=== PATIENT | male | born 1975 | race Caucasian/White ===

== ENCOUNTER 2017-10-28 09:12 | Observation (INO) ==
--- NOTE | 2017-10-28 10:03 | Emergency Department Note ---
ED Disposition Clinical Impression: Hypertensive urgency, Chest pain, Obesity (BMI 30.0-34.9), Hypokalemia, Non- compliance Disposition: Admitted As Inpatient Condition on Discharge: Fair - Critical Care Critical Care Time: No Attestation: On , the high probability of a clinically significant, sudden or life threatening deterioration of the following system(s) required my full and direct attention, intervention and personal management. The time I documented below is in addition to time spent performing reported procedures but includes the following listed in this critical care notation. Medical Decision Making - Ananda Inquiry Pt receiving controlled substance: No Ananda was queried for this patient: No Vital Signs: 10/28/17 09:15 10/28/17 09:34 10/28/17 09:44 Temperature 98.5 F Temperature Source Oral Pulse Rate [Right Brachial] 106 H 89 104 H Respiratory Rate 20 Blood Pressure [Right Arm] 214/148 201/150 222/142 Blood Pressure Mean [Right Arm] 170 167 168 Blood Pressure Source [Right Arm] Manual Cuff/ Auscultation Manual Cuff/ Auscultation Blood Pressure Position [Right Arm] Sitting Sitting 02 Sat by Pulse Oximetry 96 98 Oxygen Delivery Method 10/28/17 10:31 10/28/17 10:49 10/28/17 11:01 Temperature Temperature Source Pulse Rate [Right Brachial] 100 H 100 H 98 H Respiratory Rate Blood Pressure [Right Arm] 230/142 232/142 214/140 Blood Pressure Mean [Right Arm] 171 172 164 Blood Pressure Source [Right Arm] Manual Cuff/ Auscultation Manual Cuff/ Auscultation Blood Pressure Position [Right Arm] Sitting Sitting 02 Sat by Pulse Oximetry Oxygen Delivery Method 10/28/17 11:08 10/28/17 11:18 10/28/17 11:30 Temperature Temperature Source Oral Pulse Rate [Right Brachial] 100 H 98 H Respiratory Rate Blood Pressure [Right Arm] 202/142 180/140 Blood Pressure Mean [Right Arm] 162 153 Blood Pressure Source [Right Arm] Manual Cuff/ Auscultation Manual Cuff/ Auscultation Blood Pressure Position [Right Arm] Sitting Sitting 02 Sat by Pulse Oximetry Oxygen Delivery Method 10/28/17 11:44 10/28/17 12:05 10/28/17 12:14 Temperature Temperature Source Pulse Rate [Right Brachial] 93 H 88 Respiratory Rate 16 Blood Pressure [Right Arm] 153/114 165/122 184/101 Blood Pressure Mean [Right Arm] 127 136 128 Blood Pressure Source [Right Arm] Automatic Cuff Blood Pressure Position [Right Arm] Sitting Sitting Sitting 02 Sat by Pulse Oximetry Oxygen Delivery Method 10/28/17 12:54 10/28/17 13:34 Temperature 98.2 F Temperature Source Oral Pulse Rate [Right Brachial] 89 89 Respiratory Rate 20 Blood Pressure [Right Arm] 172/122 187/145 Blood Pressure Mean [Right Arm] 138 159 Blood Pressure Source [Right Arm] Manual Cuff/ Auscultation Automatic Cuff Blood Pressure Position [Right Arm] Sitting Supine 02 Sat by Pulse Oximetry 97 Oxygen Delivery Method Room Air - Lab Data Lab Results 10/28/17 05:53: WBC 8.0, RBC 4.54 L, Hgb 12.7 L, Hct 37.9 L, MCV 83.5, MCH 28.1 , MCHC 33.6, RDW 14.5, Plt Count 154, MPV 7.7, Neut % (Auto) 75.6, Lymph % (Auto ) 19.1, [place] % (Auto) 3.7, Eos % (Auto) 1.3, Baso % (Auto) 0.4, Neut # (Auto) 6.1, Lymph # (Auto) 1.5, [place] # (Auto) 0.3, Eos # (Auto) 0.1, Baso # (Auto) 0.0 10/28/17 10:34: D-Dimer < 100 10/28/17 10:34: Total Creatine Kinase 63, CK-MB (CK-2) 1.7, CK-MB (CK-2) Rel Index 2.7, Troponin I 0.04 10/28/17 10:34: Sodium 142, Potassium 2.8 L*, Chloride 112 H, Carbon Dioxide 22 , Anion Gap 10.8, BUN 14, Creatinine 0.75, Estimated Creat Clear 216, Estimated GFR 115, Est GFR ( Amer) 139, Glucose 92, Calcium 5.6 L, Total Bilirubin 0.3, AST 9 L, ALT 25, Alkaline Phosphatase 59, Total Protein 4.9 L, Albumin 2.5 L, Globulin 2.4, Albumin/Globulin Ratio 1.0 L 10/28/17 10:34: B-Natriuretic Peptide 49 Result diagrams: 10/28/17 05:53 08/23/18 10:34 Orders (Tests/Meds): ED MEDICATIONS Generic Name Dose Route Start Last Admin Trade Name Freq PRN Reason Stop Dose Admin Nitroglycerin/Dextrose 250 mls @ 1.5 mls/hr 10/28/17 13:16 Nitroglycerin 50mg/250ml D5w IV 11/27/17 10:44 .Q24H LACIE Protocol 5 MCG/MIN Discontinued Medications Generic Name Dose Route Start Last Admin Trade Name Freq PRN Reason Stop Dose Admin Acetaminophen 1,000 mg 10/28/17 11:36 10/28/17 11:43 Tylenol 500mg Tablet PO 10/28/17 11:37 1,000 mg ONCE ONE Administration Aspirin 243 mg 10/28/17 09:30 10/28/17 09:30 Aspirin 325mg Tablet PO 10/28/17 09:31 243 mg ONCE ONE Administration Sodium Chloride 500 mls @ 999 mls/hr 10/28/17 10:15 10/28/17 10:06 Sod Chlor 0.9% 1000ml Bag IV 10/28/17 10:45 999 mls/hr .Q31M LACIE Administration Nitroglycerin/Dextrose 250 mls @ 1.5 mls/hr 10/28/17 10:45 10/28/17 11:23 Nitroglycerin 50mg/250ml D5w IV 11/27/17 10:44 40 mcg/min .Q24H LACIE 12 mls/hr Titration Protocol 5 MCG/MIN Nitroglycerin 1 gm 10/28/17 09:31 10/28/17 09:30 Nitroglycerin 1 Inch Oint Udp TD 10/28/17 09:32 1 gm ONCE ONE Administration Ondansetron HCl 4 mg 10/28/17 11:11 10/28/17 11:15 Zofran 4mg/2ml Vial IV 10/28/17 11:12 4 mg ONCE ONE Administration Potassium Chloride 40 meq 10/28/17 11:18 10/28/17 11:48 Klor-Con 20meq Tablet PO 10/28/17 11:19 40 meq ONCE ONE Administration - ECG Data Tracing #1 Sinus tachycardia 115 right axis deviation LVH changes with T-wave inversions in the inferior leads and lateral leads. ECG initial impression date: 10/28/17 ECG initial impression time: 09:15 Medical Decision Narrative: The patient was given normal saline 500 cc bolus and started the patient on Nitropaste with no improvement. So I discontinued the paste and started the patient on IV nitro drip. His systolic blood pressure came down to 160 mmHg he became chest pain-free. His first set of enzymes were negative. I discussed his EKG with Dr. Jarquin who agreed to see him in consultation. Called his primary care physician Dr. Cho who agreed to admit the patient. Patient left the department asymptomatic and was hemodynamically and neurologically stable Chest Pain HPI - General Chief Complaint: Chest Pain Stated Complaint: Chest pain Time Seen by Provider: 10/28/17 09:15 Mode of Arrival: Ambulatory Limitations: No Limitations Description of Symptoms (Recalled from ER Triage Doc. by RN): Left sided CP that started this morning. Pt denies radiating but states it feel "tight". Also c/o SOA and light headedness. Pt c/o left sided tingling in hand. - History of Present Illness HPI narrative: 42 years old white male smoker with history of hypertension and noncompliance with medications. Today he woke up at 7:30 in the morning felt lightheaded short of breath mild chest pressure rated 1/10 with no palpitations nausea vomiting or diarrhea. He told his to take him to the ED. upon arrival it was noted that his blood pressure is 240/130 mmHg is unchanged one was done bilatrally. He denies his pain at the time of interview. Have some dental pain last night and took Percocet from his . His was seen 2 days ago for chronic migraine and he was in her company. complaint: chest pain Onset (ago): hour(s) (2 hours prior to arrival.) Duration: now resolved Activity at onset: during rest Pain location: substernal Severity: mild Severity scale (1-10): 1 Quality: tightness Pain radiation: none Relieving factors: nothing Exacerbating factors: nothing Associated symptoms: dyspnea, other (Lightheadedness.) Risk Factors for CAD: Hypertension, Smoking Treatments prior to or on arrival for Cardiac Chest Pain: none - Related Data Home Medications Medication Instructions Recorded Confirmed No Known Home Medications 10/28/17 10/28/17 Allergies Allergy/AdvReac Type Severity Reaction Status Date / Time No Known Allergies Allergy Unverified 10/28/17 13:25 [facility] History I have reviewed the patient's past medical history: Yes - Social History Educational Level: Completed High School Smoking Status: Current every day smoker Alcohol Intake: former Alcohol Intake Frequency:: holidays/special occasions only - Psychiatric History Expresses thoughts of harming self/others: None Suicide Plan Description: No Plan ROS Obtained: Yes All systems reviewed & no additional complaints Physical Exam - General General appearance: alert, in no apparent distress - Head Head exam: atraumatic, normocephalic, normal inspection - Eye Eye exam: Present: normal appearance, PERRL, EOMI. Absent: scleral icterus, jaundice, nystagmus - ENT ENT exam: Present: normal exam, normal oropharynx, mucous membranes moist, TM's normal bilaterally, normal external ear exam - Neck Neck exam: Present: normal inspection, full ROM, trachea midline. Absent: tenderness, meningismus, lymphadenopathy - Chest Chest inspection: Present: normal inspection, symmetric chest wall rise. Absent : tenderness - Respiratory Respiratory exam: Present: normal lung sounds bilaterally. Absent: respiratory distress, wheezes - Cardiovascular Cardiovascular exam: Present: regular rate, normal rhythm, normal heart sounds. Absent: JVD - Abdominal Exam Abdominal exam: Present: soft, normal bowel sounds. Absent: distention, tenderness, guarding, rebound, rigidity - Extremities Exam Extremities exam: Present: normal inspection, full ROM, normal capillary refill. Absent: calf tenderness - Back Exam Back exam: Present: normal inspection. Absent: tenderness, CVA tenderness (R), CVA tenderness (L), paraspinal tenderness, vertebral tenderness - Neurological Exam Neurological exam: Present: alert, oriented X3, CN II-XII intact, motor sensory deficit, reflexes normal - Psychiatric Psychiatric exam: Present: normal affect, normal mood - Skin Skin exam: Present: warm, dry, intact, normal color - Lymphatic Lymphatic Findings: no adenopathy
[2017-10-28 10:54] LABS: Basophils % 0.4 % (0.1-2.0); Eosinophils # 0.1 K/mm3 (0.0-0.4); Eosinophils % 1.3 % (0.1-12.0); Hematocrit 37.9 % (42.0-52.0); Hemoglobin 12.7 g/dL (14.1-18.0); Lymphocytes # 1.5 K/mm3 (0.7-4.5); Lymphocytes % 19.1 K/mm3 (10-50); Mean Corpuscular HGB Conc 33.6 g/dL (31.8-35.4); Mean Corpuscular Hemoglobin 28.1 pg (27.0-31.2); Mean Corpuscular Volume 83.5 fl (80-94); Mean Platelet Volume 7.7 fl (7.4-10.4); Monocytes # 0.3 K/mm3 (0.1-1.0); Monocytes % 3.7 % (1.7-9.3); Neutrophils # 6.1 K/mm3 (1.8-7.8); Neutrophils % 75.6 % (37.0-80.0); Platelet Count 154 K/mm3 (142-424); Red Blood Count 4.54 M/mm3 (4.60-6.20); Red Cell Distribution Width 14.5 % (11.5-17.5)
[2017-10-28 11:15] LABS: Albumin Level 2.5 gm/dL (3.4-5.0); Anion Gap 10.8 mEq/L (5-15); Bilirubin,Total 0.3 mg/dL (0.2-1.0); Globulin 2.4 gm/dl (1.3-3.2); Total Protein,Serum 4.9 gm/dL (6.4-8.2)
[2017-10-28 11:18] LABS: Calcium 5.6 mg/dL (8.5-10.1); Potassium 2.8 mmoL/L (3.5-5.1)
--- NOTE | 2017-10-28 13:48 | History & Physical Report ---
*Admission Date: 10/28/17 <Julieta Rogers 10/28/17 13:51> *Chief complaint: SOA, lightheaded, chest pressure <Julieta Rogers 10/28/17 13:51> *History of present illness: Mr Singer is a 42 year old white male smoker with a history of hypertension and noncompliance with medications. Today he woke up at 7:30 in the morning and felt lightheaded and short of breath with mild chest pressure rated 1/10 with no palpitations, nausea, vomiting, or diarrhea. He was brought to the ER for evaluation and upon arrival it was noted that his blood pressure was 240/130 mmHg. He was placed on a nitro drip and admitted for further evaluation and treatment. <Julieta Rogers 10/28/17 13:51> [facility] History Medical History: Reports:: Hypertension, Kidney Stones <Julieta Rogers 13:51> Comment: Kidney stones <Julieta Rogers 10/28/17 13:51> - *Social History Educational Level: Completed High School <Julieta Rogers 10/28/17 13:51> Smoking Status: Current every day smoker <Julieta Rogers 10/28/17 13:51> Alcohol Intake: former <Julieta Rogers 10/28/17 13:51> Alcohol Intake Frequency:: holidays/special occasions only <Julieta Rogers 13:51> - Psychiatric History Expresses thoughts of harming self/others: None <Julieta Rogers 10/28/17 13: 51> Suicide Plan Description: No Plan <Julieta Rogers 10/28/17 13:51> Review of Systems - Constitutional Reports weakness, Denies body ache(s), Denies chills <Julieta Rogers 13:51> - Eyes Denies blurry vision, Denies double vision <Julieta Rogers 10/28/17 13:51> - ENT Denies nasal congestion, Denies sore throat <Julieta Rogers 10/28/17 13:51> - *Cardiovascular Reports chest pain, Reports lightheadedness, Denies radiating jaw, neck or arm pain <Julieta Rogers 10/28/17 13:51> - *Respiratory Reports shortness of breath, Denies cough <Julieta Rogers 10/28/17 13:51> - *Gastrointestinal Reports nausea, Denies abdominal pain, Denies loose stools, Denies vomiting < Julieta Rogers 10/28/17 13:51> - *Genitourinary Denies difficulty urinating, Denies painful urination <BillyreneaJulieta 13:51> - *Musculoskeletal Denies joint pain <BillyreneaJulieta 10/28/17 13:51> - *Neurologic Reports headache(s), Reports dizziness, Reports weakness <BillyreneaJulieta 13:51> Meds Home Medications Medication Instructions Recorded Confirmed Type No Known Home Medications 10/28/17 10/28/17 History <TammieErick Walter - 10/28/17 18:03> Allergies Allergy/AdvReac Type Severity Reaction Status Date / Time No Known Allergies Allergy Unverified 10/28/17 13:25 <Erick Cho - 10/28/17 18:03> Exam Vital signs and Labs for Last 24 Hours: Temp Pulse Resp BP Pulse Ox 98.2 F 89 16 187/145 97 10/28/17 13:50 10/28/17 13:50 10/28/17 13:50 10/28/17 13:50 10/28/17 13:34 Laboratory Results - last 24 hr 10/28/17 05:53: WBC 8.0, RBC 4.54 L, Hgb 12.7 L, Hct 37.9 L, MCV 83.5, MCH 28.1 , MCHC 33.6, RDW 14.5, Plt Count 154, MPV 7.7, Neut % (Auto) 75.6, Lymph % (Auto ) 19.1, [place] % (Auto) 3.7, Eos % (Auto) 1.3, Baso % (Auto) 0.4, Neut # (Auto) 6.1, Lymph # (Auto) 1.5, [place] # (Auto) 0.3, Eos # (Auto) 0.1, Baso # (Auto) 0.0 10/28/17 10:34: D-Dimer < 100 10/28/17 10:34: Total Creatine Kinase 63, CK-MB (CK-2) 1.7, CK-MB (CK-2) Rel Index 2.7, Troponin I 0.04 10/28/17 10:34: Sodium 142, Potassium 2.8 L*, Chloride 112 H, Carbon Dioxide 22 , Anion Gap 10.8, BUN 14, Creatinine 0.75, Estimated Creat Clear 216, Estimated GFR 115, Est GFR ( Amer) 139, Glucose 92, Calcium 5.6 L, Total Bilirubin 0.3, AST 9 L, ALT 25, Alkaline Phosphatase 59, Total Protein 4.9 L, Albumin 2.5 L, Globulin 2.4, Albumin/Globulin Ratio 1.0 L 10/28/17 10:34: B-Natriuretic Peptide 49 10/28/17 13:30: Troponin I 0.04 10/28/17 16:35: Troponin I 0.03 <Erick Cho - 10/28/17 18:03> Temp Pulse Resp BP Pulse Ox 98.2 F 89 20 187/145 97 10/28/17 13:34 10/28/17 13:34 10/28/17 13:34 10/28/17 13:34 10/28/17 13:34 Laboratory Results - last 24 hr 10/28/17 05:53: WBC 8.0, RBC 4.54 L, Hgb 12.7 L, Hct 37.9 L, MCV 83.5, MCH 28.1 , MCHC 33.6, RDW 14.5, Plt Count 154, MPV 7.7, Neut % (Auto) 75.6, Lymph % (Auto ) 19.1, [place] % (Auto) 3.7, Eos % (Auto) 1.3, Baso % (Auto) 0.4, Neut # (Auto) 6.1, Lymph # (Auto) 1.5, [place] # (Auto) 0.3, Eos # (Auto) 0.1, Baso # (Auto) 0.0 10/28/17 10:34: D-Dimer < 100 10/28/17 10:34: Total Creatine Kinase 63, CK-MB (CK-2) 1.7, CK-MB (CK-2) Rel Index 2.7, Troponin I 0.04 10/28/17 10:34: Sodium 142, Potassium 2.8 L*, Chloride 112 H, Carbon Dioxide 22 , Anion Gap 10.8, BUN 14, Creatinine 0.75, Estimated Creat Clear 216, Estimated GFR 115, Est GFR ( Amer) 139, Glucose 92, Calcium 5.6 L, Total Bilirubin 0.3, AST 9 L, ALT 25, Alkaline Phosphatase 59, Total Protein 4.9 L, Albumin 2.5 L, Globulin 2.4, Albumin/Globulin Ratio 1.0 L 10/28/17 10:34: B-Natriuretic Peptide 49 <Julieta Rogers 10/28/17 13:51> I & O for Last 24 hours: Intake & Output 10/26/17 10/27/17 10/28/17 10/29/17 11:59 11:59 11:59 11:59 Intake Total 3.875 / 3.875 507.00 / 507.00 Balance 3.875 / 3.875 507.00 / 507.00 Weight 260 lb 267 lb 3 oz <Erick Cho - 10/28/17 18:03> Intake & Output 10/26/17 10/27/17 10/28/17 10/29/17 11:59 11:59 11:59 11:59 Intake Total 3.875 / 3.875 Balance 3.875 / 3.875 Weight 260 lb 267 lb 3 oz <Julieta Rogers 10/28/17 13:51> - Constitutional no acute distress <Julieta Rogers 10/28/17 13:51> - *Routine HEENT Exam Head: Present: normocephalic, atraumatic <KenJulieta 10/28/17 13:51> Eye: Present: EOMI, PERRL <KenJulieta 10/28/17 13:51> ENT: Present: mucous membranes moist <KenJulieta 10/28/17 13:51> - *Routine Neck Exam Present: supple, full ROM. Absent: carotid bruit <KenJulieta 10/28/17 13 :51> - *Routine Respiratory Exam Present: CTA bilaterally <KenJulieta 10/28/17 13:51> - *Routine Cardiovascular Exam Present: RRR <KenJulieta 10/28/17 13:51> - *Routine Abdominal Exam Present: soft, normoactive bowel sounds. Absent: tenderness <Julieta Rogers 10/28/17 13:51> - *Routine Extremities Exam Absent: edema <Julieta Rogers 10/28/17 13:51> - *Routine Skin Exam Present: intact <Julieta Rogers 10/28/17 13:51> - *Routine Neurological Exam Present: alert, oriented X3 <Julieta Rogers 10/28/17 13:51> H&P: Result - Impressions CXR - mild cardiomegaly <Julieta Rogers 10/28/17 13:51> Assessment and Plan (1) Hypertensive urgency Current visit: Yes Status: Acute Category: Medical Code(s): I16.0 - Hypertensive urgency (2) Chest pain Current visit: Yes Status: Acute Category: Medical Code(s): R07.9 - Chest pain, unspecified (3) Hypocalcemia Current visit: Yes Status: Acute Category: Medical Code(s): E83.51 - Hypocalcemia (4) Hypokalemia Current visit: Yes Status: Acute Category: Medical Code(s): E87.6 - Hypokalemia (5) Obesity (BMI 30.0-34.9) Current visit: Yes Status: Chronic Category: Medical Code(s): E66.9 - Obesity, unspecified <Julieta Rogers 10/28/17 13:44> (1) Hypertensive urgency Current visit: Yes Status: Acute Category: Medical Code(s): I16.0 - Hypertensive urgency (2) Chest pain Current visit: Yes Status: Acute Category: Medical Code(s): R07.9 - Chest pain, unspecified (3) Hypocalcemia Current visit: Yes Status: Acute Category: Medical Code(s): E83.51 - Hypocalcemia (4) Hypokalemia Current visit: Yes Status: Acute Category: Medical Code(s): E87.6 - Hypokalemia (5) Morbid obesity with BMI of 40.0-44.9, adult Current visit: Yes Status: Acute Category: Medical Code(s): E66.01 - Morbid (severe) obesity due to excess calories; Z68.41 - Body mass index (BMI) 40.0-44.9, adult (6) Risk factors for obstructive sleep apnea Current visit: Yes Status: Acute Category: Medical Code(s): Z91.89 - Other specified personal risk factors, not elsewhere classified <Erick Cho - 10/28/17 18:03> - Assessment and plan all Dx Assessment and Plan for all problems:: Patient seen and examined. CC is headache from NTG drip. Cardiology consult noted. reports hx of heavy snoring and apnea. Will need sleep study as outpt. Will check ionized calcium and PTH. <Erick Cho - 10/28/17 18:03> Pt is currently on a nitro drip. Will start on potassium and calcium supplementation. Cardiology to see the patient. <Julieta Rogers - 10/28/17 13:51>
--- NOTE | 2017-10-28 16:48 | Consult Report ---
History of Present Illness Consult date: 10/28/17 Requesting physician: Erick Cho Consult reason: chest pain Chief complaint: HTN urgency, chest pain Additional Medical History:: 1. Hypertension, diagnosed approximately 15 years ago. A. Noncompliant with medical therapy 2. History of snoring and fatigue with suspected obstructive sleep apnea due to 's witnessing apneic periods during sleep 3. Morbid obesity 4. Tobacco use History of present illness: Mr Singer is a 42 year old white male smoker with a history of hypertension and noncompliance with medications. Today he woke up at 7:30 in the morning and felt lightheaded and short of breath with mild chest pressure rated 1/10 with no palpitations, nausea, vomiting, or diarrhea. He was brought to the ER for evaluation and upon arrival it was noted that his blood pressure was 240/ 130 mmHg. He was placed on a nitro drip and admitted for further evaluation and treatment. The above per Julieta Rogers PA-C for Dr. Cho. Patient has a long-standing history of hypertension and medication compliance. He states he has taken his 's metoprolol in the past and felt improvement in his discomfort and headache symptoms with improvement in his blood pressure. He has also tried bisoprolol in the past which brought about fatigue which is the reason he stopped taking it. Cardiology consulted for further evaluation and recommendations. [facility] History Medical History: Reports:: Hypertension, Kidney Stones - *Social History Educational Level: Completed High School Smoking Status: Current every day smoker Alcohol Intake: former Alcohol Intake Frequency:: holidays/special occasions only - Psychiatric History Expresses thoughts of harming self/others: None Suicide Plan Description: No Plan Meds Home Medications Medication Instructions Recorded Confirmed Type No Known Home Medications 10/28/17 10/28/17 History Allergies Allergy/AdvReac Type Severity Reaction Status Date / Time No Known Allergies Allergy Unverified 10/28/17 13:25 Review of Systems - *Cardiovascular Reports chest pain, Reports shortness of breath with activity - *Respiratory Reports shortness of breath with activity - *Gastrointestinal Denies abdominal pain - *Genitourinary Denies difficulty urinating - *Musculoskeletal Denies joint pain - *Neurologic Reports headache(s), Reports dizziness, Reports weakness Exam Vital signs and Labs for Last 24 Hours: Temp Pulse Resp BP Pulse Ox 98.2 F 89 16 187/145 97 10/28/17 13:50 10/28/17 13:50 10/28/17 13:50 10/28/17 13:50 10/28/17 13:34 Laboratory Results - last 24 hr 10/28/17 05:53: WBC 8.0, RBC 4.54 L, Hgb 12.7 L, Hct 37.9 L, MCV 83.5, MCH 28.1 , MCHC 33.6, RDW 14.5, Plt Count 154, MPV 7.7, Neut % (Auto) 75.6, Lymph % (Auto ) 19.1, [place] % (Auto) 3.7, Eos % (Auto) 1.3, Baso % (Auto) 0.4, Neut # (Auto) 6.1, Lymph # (Auto) 1.5, [place] # (Auto) 0.3, Eos # (Auto) 0.1, Baso # (Auto) 0.0 10/28/17 10:34: D-Dimer < 100 10/28/17 10:34: Total Creatine Kinase 63, CK-MB (CK-2) 1.7, CK-MB (CK-2) Rel Index 2.7, Troponin I 0.04 10/28/17 10:34: Sodium 142, Potassium 2.8 L*, Chloride 112 H, Carbon Dioxide 22 , Anion Gap 10.8, BUN 14, Creatinine 0.75, Estimated Creat Clear 216, Estimated GFR 115, Est GFR ( Amer) 139, Glucose 92, Calcium 5.6 L, Total Bilirubin 0.3, AST 9 L, ALT 25, Alkaline Phosphatase 59, Total Protein 4.9 L, Albumin 2.5 L, Globulin 2.4, Albumin/Globulin Ratio 1.0 L 10/28/17 10:34: B-Natriuretic Peptide 49 10/28/17 13:30: Troponin I 0.04 I & O for Last 24 hours: Intake & Output 10/26/17 10/27/17 10/28/17 10/29/17 11:59 11:59 11:59 11:59 Intake Total 3.875 / 3.875 27.00 / 27.00 Balance 3.875 / 3.875 27.00 / 27.00 Weight 260 lb 267 lb 3 oz - *Routine Neck Exam Absent: JVD, carotid bruit - *Routine Respiratory Exam Present: CTA bilaterally - *Routine Cardiovascular Exam Present: RRR. Absent: murmur, gallop, rubs - *Routine Abdominal Exam Present: soft. Absent: tenderness - *Routine Extremities Exam Present: edema - *Routine Neurological Exam Present: alert, oriented X3, moving all extremities Assessment and Plan (1) Hypertensive urgency Current visit: Yes Status: Acute Category: Medical Code(s): I16.0 - Hypertensive urgency (2) Chest pain Current visit: Yes Status: Acute Category: Medical Code(s): R07.9 - Chest pain, unspecified (3) Hypocalcemia Current visit: Yes Status: Acute Category: Medical Code(s): E83.51 - Hypocalcemia (4) Hypokalemia Current visit: Yes Status: Acute Category: Medical Code(s): E87.6 - Hypokalemia (5) Morbid obesity with BMI of 40.0-44.9, adult Current visit: Yes Status: Acute Category: Medical Code(s): E66.01 - Morbid (severe) obesity due to excess calories; Z68.41 - Body mass index (BMI) 40.0-44.9, adult - Assessment and plan all Dx Assessment and Plan for all problems:: 1. Patient has been given 5 of Lopressor IV along with 50 mg of metoprolol p.o. to start twice daily. We will also add losartan 50/12.5 mg daily. Will wean patient off nitroglycerin drip 2. Will obtain an echocardiogram. 3. Patient will need outpatient assessment for obstructive sleep apnea. 4. Tobacco cessation recommended. 5. Further recommendations to follow pending above results.
[2017-10-29 06:55] LABS: Basophils # 0.1 K/mm3 (0-0.2); Basophils % 0.4 % (0.1-2.0); Eosinophils # 0.3 K/mm3 (0.0-0.4); Hematocrit 47.6 % (42.0-52.0); Lymphocytes # 3.2 K/mm3 (0.7-4.5); Lymphocytes % 23.6 K/mm3 (10-50); Mean Corpuscular HGB Conc 32.7 g/dL (31.8-35.4); Mean Corpuscular Hemoglobin 27.8 pg (27.0-31.2); Mean Corpuscular Volume 84.9 fl (80-94); Mean Platelet Volume 7.6 fl (7.4-10.4); Monocytes # 0.8 K/mm3 (0.1-1.0); Monocytes % 5.8 % (1.7-9.3); Neutrophils # 9.2 K/mm3 (1.8-7.8); Neutrophils % 68.2 % (37.0-80.0); Platelet Count 230 K/mm3 (142-424); Red Cell Distribution Width 14.7 % (11.5-17.5); White Blood Count 13.5 K/mm3 (4.8-10.8)
[2017-10-29 07:00] LABS: Albumin Level 3.6 gm/dL (3.4-5.0); Albumin/Globulin Ratio 1.1 (1.1-1.8); Anion Gap 11.4 mEq/L (5-15); Bilirubin,Total 0.4 mg/dL (0.2-1.0); Globulin 3.3 gm/dl (1.3-3.2); Potassium 4.4 mmoL/L (3.5-5.1); Total Protein,Serum 6.9 gm/dL (6.4-8.2)
[2017-10-29 07:08] LABS: Calcium 8.6 mg/dL (8.5-10.1)
[2017-10-29 07:49] LABS: Hemoglobin 15.6 g/dL (14.1-18.0)
--- NOTE | 2017-10-29 08:09 | Progress Note ---
<Julieta Rogers - Last Filed: 10/29/17 08:05> Internal Medicine - PN: Subj *Date: 10/29/17 *Time: 08:05 Interval history: Mr. Singer is feeling much better this morning. He is asymptomatic at this point. His blood pressure has improved and he has been weaned off the nitro drip. He wants to go home. Exam Vital signs and Labs for Last 24 Hours: Temp Pulse Resp BP Pulse Ox 98.0 F 67 17 153/90 94 L 10/28/17 20:00 10/29/17 06:00 10/28/17 20:00 10/29/17 06:00 10/29/17 06:00 Laboratory Results - last 24 hr 10/28/17 05:53: WBC 8.0, RBC 4.54 L, Hgb 12.7 L, Hct 37.9 L, MCV 83.5, MCH 28.1 , MCHC 33.6, RDW 14.5, Plt Count 154, MPV 7.7, Neut % (Auto) 75.6, Lymph % (Auto ) 19.1, [place] % (Auto) 3.7, Eos % (Auto) 1.3, Baso % (Auto) 0.4, Neut # (Auto) 6.1, Lymph # (Auto) 1.5, [place] # (Auto) 0.3, Eos # (Auto) 0.1, Baso # (Auto) 0.0 10/28/17 10:34: D-Dimer < 100 10/28/17 10:34: Total Creatine Kinase 63, CK-MB (CK-2) 1.7, CK-MB (CK-2) Rel Index 2.7, Troponin I 0.04 10/28/17 10:34: Sodium 142, Potassium 2.8 L*, Chloride 112 H, Carbon Dioxide 22 , Anion Gap 10.8, BUN 14, Creatinine 0.75, Estimated Creat Clear 216, Estimated GFR 115, Est GFR ( Amer) 139, Glucose 92, Calcium 5.6 L, Total Bilirubin 0.3, AST 9 L, ALT 25, Alkaline Phosphatase 59, Total Protein 4.9 L, Albumin 2.5 L, Globulin 2.4, Albumin/Globulin Ratio 1.0 L 10/28/17 10:34: B-Natriuretic Peptide 49 10/28/17 13:30: Troponin I 0.04 10/28/17 16:35: Troponin I 0.03 10/29/17 05:15: WBC 13.5 H D, RBC 5.60, Hgb 15.6 D, Hct 47.6, MCV 84.9, MCH 27.8, MCHC 32.7, RDW 14.7, Plt Count 230 D, MPV 7.6, Neut % (Auto) 68.2, Lymph % (Auto) 23.6, [place] % (Auto) 5.8, Eos % (Auto) 2.0, Baso % (Auto) 0.4, Neut # ( Auto) 9.2 H, Lymph # (Auto) 3.2, [place] # (Auto) 0.8, Eos # (Auto) 0.3, Baso # ( Auto) 0.1 10/29/17 05:15: Sodium 138, Potassium 4.4 D, Chloride 101, Carbon Dioxide 30 D , Anion Gap 11.4, BUN 19 H D, Creatinine 1.29 D, Estimated Creat Clear 129, Estimated GFR 61, Est GFR ( Amer) 74 D, Glucose 110 H, Calcium 8.6 D, Total Bilirubin 0.4, AST 10 L, ALT 32 D, Alkaline Phosphatase 75, Total Protein 6.9 D, Albumin 3.6 D, Globulin 3.3 H, Albumin/Globulin Ratio 1.1 I & O for Last 24 hours: Intake & Output 10/26/17 10/27/17 10/28/17 10/29/17 11:59 11:59 11:59 11:59 Intake Total 3.875 / 3.875 566.50 / 566.50 Balance 3.875 / 3.875 566.50 / 566.50 Weight 260 lb 267 lb 3 oz - Constitutional no acute distress - *Routine Respiratory Exam Present: CTA bilaterally - *Routine Cardiovascular Exam Present: RRR - *Routine Abdominal Exam Present: soft, normoactive bowel sounds. Absent: tenderness - *Routine Extremities Exam Absent: edema Assessment and Plan (1) Hypertensive urgency Current visit: Yes Status: Acute Category: Medical Code(s): I16.0 - Hypertensive urgency (2) Chest pain Current visit: Yes Status: Acute Category: Medical Code(s): R07.9 - Chest pain, unspecified (3) Hypocalcemia Current visit: Yes Status: Acute Category: Medical Code(s): E83.51 - Hypocalcemia (4) Hypokalemia Current visit: Yes Status: Acute Category: Medical Code(s): E87.6 - Hypokalemia (5) Morbid obesity with BMI of 40.0-44.9, adult Current visit: Yes Status: Acute Category: Medical Code(s): E66.01 - Morbid (severe) obesity due to excess calories; Z68.41 - Body mass index (BMI) 40.0-44.9, adult (6) Risk factors for obstructive sleep apnea Current visit: Yes Status: Acute Category: Medical Code(s): Z91.89 - Other specified personal risk factors, not elsewhere classified - Assessment and plan all Dx Assessment and Plan for all problems:: Potassium has normalized as has his calcium. His BP has improved and he is off the nitro drip. Awaiting cardiology recommendations for disposition. <Erick Cho - Last Filed: 10/29/17 08:31> Internal Medicine - PN: Subj *Date: 10/29/17 *Time: 08:29 Exam Vital signs and Labs for Last 24 Hours: Temp Pulse Resp BP Pulse Ox 98.0 F 67 17 153/90 94 L 10/28/17 20:00 10/29/17 06:00 10/28/17 20:00 10/29/17 06:00 10/29/17 06:00 Laboratory Results - last 24 hr 10/28/17 05:53: WBC 8.0, RBC 4.54 L, Hgb 12.7 L, Hct 37.9 L, MCV 83.5, MCH 28.1 , MCHC 33.6, RDW 14.5, Plt Count 154, MPV 7.7, Neut % (Auto) 75.6, Lymph % (Auto ) 19.1, [place] % (Auto) 3.7, Eos % (Auto) 1.3, Baso % (Auto) 0.4, Neut # (Auto) 6.1, Lymph # (Auto) 1.5, [place] # (Auto) 0.3, Eos # (Auto) 0.1, Baso # (Auto) 0.0 10/28/17 10:34: D-Dimer < 100 10/28/17 10:34: Total Creatine Kinase 63, CK-MB (CK-2) 1.7, CK-MB (CK-2) Rel Index 2.7, Troponin I 0.04 10/28/17 10:34: Sodium 142, Potassium 2.8 L*, Chloride 112 H, Carbon Dioxide 22 , Anion Gap 10.8, BUN 14, Creatinine 0.75, Estimated Creat Clear 216, Estimated GFR 115, Est GFR ( Amer) 139, Glucose 92, Calcium 5.6 L, Total Bilirubin 0.3, AST 9 L, ALT 25, Alkaline Phosphatase 59, Total Protein 4.9 L, Albumin 2.5 L, Globulin 2.4, Albumin/Globulin Ratio 1.0 L 10/28/17 10:34: B-Natriuretic Peptide 49 10/28/17 13:30: Troponin I 0.04 10/28/17 16:35: Troponin I 0.03 10/29/17 05:15: WBC 13.5 H D, RBC 5.60, Hgb 15.6 D, Hct 47.6, MCV 84.9, MCH 27.8, MCHC 32.7, RDW 14.7, Plt Count 230 D, MPV 7.6, Neut % (Auto) 68.2, Lymph % (Auto) 23.6, [place] % (Auto) 5.8, Eos % (Auto) 2.0, Baso % (Auto) 0.4, Neut # ( Auto) 9.2 H, Lymph # (Auto) 3.2, [place] # (Auto) 0.8, Eos # (Auto) 0.3, Baso # ( Auto) 0.1 10/29/17 05:15: Sodium 138, Potassium 4.4 D, Chloride 101, Carbon Dioxide 30 D , Anion Gap 11.4, BUN 19 H D, Creatinine 1.29 D, Estimated Creat Clear 129, Estimated GFR 61, Est GFR ( Amer) 74 D, Glucose 110 H, Calcium 8.6 D, Total Bilirubin 0.4, AST 10 L, ALT 32 D, Alkaline Phosphatase 75, Total Protein 6.9 D, Albumin 3.6 D, Globulin 3.3 H, Albumin/Globulin Ratio 1.1 I & O for Last 24 hours: Intake & Output 10/26/17 10/27/17 10/28/17 10/29/17 11:59 11:59 11:59 11:59 Intake Total 3.875 / 3.875 1106.50 / 1106.50 Balance 3.875 / 3.875 1106.50 / 1106.50 Weight 260 lb 267 lb 3 oz Assessment and Plan (1) Hypertensive urgency Current visit: Yes Status: Acute Category: Medical Code(s): I16.0 - Hypertensive urgency (2) Chest pain Current visit: Yes Status: Acute Category: Medical Code(s): R07.9 - Chest pain, unspecified (3) Hypocalcemia Current visit: Yes Status: Acute Category: Medical Code(s): E83.51 - Hypocalcemia (4) Hypokalemia Current visit: Yes Status: Acute Category: Medical Code(s): E87.6 - Hypokalemia (5) Morbid obesity with BMI of 40.0-44.9, adult Current visit: Yes Status: Acute Category: Medical Code(s): E66.01 - Morbid (severe) obesity due to excess calories; Z68.41 - Body mass index (BMI) 40.0-44.9, adult (6) Risk factors for obstructive sleep apnea Current visit: Yes Status: Acute Category: Medical Code(s): Z91.89 - Other specified personal risk factors, not elsewhere classified - Assessment and plan all Dx Assessment and Plan for all problems:: Patient seen and examined. Subjectively feels much better. Labs improved. Had Echo this morning. Plan discharge when OK with cardiology.
--- NOTE | 2017-10-29 08:47 | Pharmacy Consult Notes ---
[facility] Pharm[facility] VTE Monitoring - Patient Demographics Admission date: 10/28/17 Report Date: 10/29/17 Time: 08:46 Allergies/Adverse Reactions: Patient Allergies No Known Allergies Allergy (Unverified 10/28/17 13:25) Height: 1.73 m Weight: 121.194 kg Patient Problems: Current Active Problems Hypertensive urgency (Acute) Chest pain (Acute) Obesity (BMI 30.0-34.9) (Chronic) Hypocalcemia (Acute) Hypokalemia (Acute) Hypokalemia (Acute) Non-compliance (Acute) Morbid obesity with BMI of 40.0-44.9, adult (Acute) Risk factors for obstructive sleep apnea (Acute) - VTE Risk Labs: VTE Related Lab Results Hgb 15.6 g/dL (14.1-18.0) D 10/29/17 05:15 Hct 47.6 % (42.0-52.0) 10/29/17 05:15 Plt Count 230 K/mm3 (142-424) D 10/29/17 05:15 BUN 19 mg/dL (7-18) H D 10/29/17 05:15 Creatinine 1.29 mg/dL (0.70-1.30) D 10/29/17 05:15 Estimated Creat Clear 129 mL/min (0-300) 10/29/17 05:15 Was VTE Risk Assessment Performed: Yes VTE Score: 2 VTE Risk Level: Low Risk Clinical Trial Participant: No - Prophylaxis VTE Prophylaxis Ordered?: Yes Types of VTE Prophylaxis: TEDS Knee High
--- NOTE | 2017-10-29 08:58 | Progress Note ---
Subjective Date: 10/29/17 Time: 08:55 Principal diagnosis: HTN Interval history: 42-year-old white male in the chair in no acute distress. Feels much better than when he came in. He is asking about going home today. Exam Vital signs and Labs for Last 24 Hours: Temp Pulse Resp BP Pulse Ox 98.0 F 67 17 153/90 94 L 10/28/17 20:00 10/29/17 06:00 10/28/17 20:00 10/29/17 06:00 10/29/17 06:00 Laboratory Results - last 24 hr 10/28/17 05:53: WBC 8.0, RBC 4.54 L, Hgb 12.7 L, Hct 37.9 L, MCV 83.5, MCH 28.1 , MCHC 33.6, RDW 14.5, Plt Count 154, MPV 7.7, Neut % (Auto) 75.6, Lymph % (Auto ) 19.1, [place] % (Auto) 3.7, Eos % (Auto) 1.3, Baso % (Auto) 0.4, Neut # (Auto) 6.1, Lymph # (Auto) 1.5, [place] # (Auto) 0.3, Eos # (Auto) 0.1, Baso # (Auto) 0.0 10/28/17 10:34: D-Dimer < 100 10/28/17 10:34: Total Creatine Kinase 63, CK-MB (CK-2) 1.7, CK-MB (CK-2) Rel Index 2.7, Troponin I 0.04 10/28/17 10:34: Sodium 142, Potassium 2.8 L*, Chloride 112 H, Carbon Dioxide 22 , Anion Gap 10.8, BUN 14, Creatinine 0.75, Estimated Creat Clear 216, Estimated GFR 115, Est GFR ( Amer) 139, Glucose 92, Calcium 5.6 L, Total Bilirubin 0.3, AST 9 L, ALT 25, Alkaline Phosphatase 59, Total Protein 4.9 L, Albumin 2.5 L, Globulin 2.4, Albumin/Globulin Ratio 1.0 L 10/28/17 10:34: B-Natriuretic Peptide 49 10/28/17 13:30: Troponin I 0.04 10/28/17 16:35: Troponin I 0.03 10/29/17 05:15: WBC 13.5 H D, RBC 5.60, Hgb 15.6 D, Hct 47.6, MCV 84.9, MCH 27.8, MCHC 32.7, RDW 14.7, Plt Count 230 D, MPV 7.6, Neut % (Auto) 68.2, Lymph % (Auto) 23.6, [place] % (Auto) 5.8, Eos % (Auto) 2.0, Baso % (Auto) 0.4, Neut # ( Auto) 9.2 H, Lymph # (Auto) 3.2, [place] # (Auto) 0.8, Eos # (Auto) 0.3, Baso # ( Auto) 0.1 10/29/17 05:15: Sodium 138, Potassium 4.4 D, Chloride 101, Carbon Dioxide 30 D , Anion Gap 11.4, BUN 19 H D, Creatinine 1.29 D, Estimated Creat Clear 129, Estimated GFR 61, Est GFR ( Amer) 74 D, Glucose 110 H, Calcium 8.6 D, Total Bilirubin 0.4, AST 10 L, ALT 32 D, Alkaline Phosphatase 75, Total Protein 6.9 D, Albumin 3.6 D, Globulin 3.3 H, Albumin/Globulin Ratio 1.1 I & O for Last 24 hours: Intake & Output 10/26/17 10/27/17 10/28/17 10/29/17 11:59 11:59 11:59 11:59 Intake Total 3.875 / 3.875 1106.50 / 1106.50 Balance 3.875 / 3.875 1106.50 / 1106.50 Weight 260 lb 267 lb 3 oz - *Routine Respiratory Exam Present: CTA bilaterally - *Routine Cardiovascular Exam Present: RRR Progress Note: A&P (1) Hypertensive urgency Status: Acute Current Visit: Yes (2) Chest pain Status: Acute Current Visit: Yes (3) Hypocalcemia Status: Acute Current Visit: Yes (4) Hypokalemia Status: Acute Current Visit: Yes (5) Morbid obesity with BMI of 40.0-44.9, adult Status: Acute Current Visit: Yes (6) Risk factors for obstructive sleep apnea Status: Acute Current Visit: Yes Assessment and Plan for All Diagnoses:: Patient's blood pressure is much improved over yesterday. Recommend continuing metoprolol but use extended release metoprolol succinate 50 mg once daily at bedtime and losartan HCT 50/12.5 mg in the a.m. Recommend follow-up with us in 1 week. Okay for discharge from cardiology standpoint. Preliminary echocardiogram shows significant left ventricular hypertrophy with normal LV function.
--- NOTE | 2017-10-29 13:39 | Cardiology Report ---
PROCEDURE: 2-D M-mode and color Doppler study INDICATIONS FOR THE TEST: Chest pain COPD Heart Murmur Tobacco SmokingX Palpitations Fatigue Syncope Edema HypertensionXDiabetes Mellitus Rheumatic Fever SOBXDOEXObesityXHyperlipidemia Family History HD Additional History PATIENT INFORMATION HEIGHT: 68 WEIGHT:267 GENDER: Male B/P:170/88 2-D/M-MODE INTERPRETATION: 2-D MEASUREMENTS OBSERVED VALUES IN CMS Right Ventricular Dimension (RVDd) 1.8 Interventricular Septum (Thickness)(IVsd) 1.4 Left Ventricular Internal Dimensions(LVIDd) 5.6 Left Ventricular Posterior Wall (Thickness)(LVPWd) 1.5 Aortic Root 3.2 Aortic Cusp Separation 1.9 Left Atrial Dimensions (LAD) 3.5 2D 1. Left atrium is mildly enlarged, left ventricle is normal size, there is moderate concentric left ventricular hypertrophy, visually estimated ejection fraction is 50% with no obvious regional wall motion abnormality. 2. The right atrium and right ventricle are normal size and contractility. 3. The aortic valve is minimally thickened and fibrosed. 4. The mitral and tricuspid valve leaflets are minimally thickened. 5. The pulmonic valve is poorly visualized. 6. No significant pericardial effusion noted. DOPPLER INTERROGATION: Doppler interrogation of the aortic, mitral and tricuspid valve reveals presence of mild mitral and tricuspid regurgitation, tricuspid regurgitation jet velocity is insufficient for calculation of the right ventricular systolic pressure, grade 1 diastolic dysfunction seen with tissue Doppler evidence of raised left atrial pressure. CONCLUSION: 1. Mildly enlarged left atrium, normal left ventricular size, moderate concentric left ventricular hypertrophy, visually estimated ejection fraction of 50% with no obvious regional wall motion abnormality, grade 1 diastolic dysfunction seen with tissue Doppler evidence of raised left atrial pressure. 2. Mild mitral and tricuspid regurgitation 3. No significant pericardial effusion noted.
--- NOTE | 2017-11-01 08:03 | Discharge Summary ---
General - General Admission date:: 10/28/17 <Erick Cho - 11/02/17 15:10> 10/28/17 <Luly Nichols - 11/01/17 08:37> Discharge date: 10/29/17 <Luly Nichols - 11/01/17 08:37> HPI HPI: Mr Singer is a 42 year old white male with a history of smoking hypertension and noncompliance with medications. He awakened in the AM and felt lightheaded and short of breath with mild chest pressure which he rated 1/ 10 with no palpitations, nausea, vomiting, or diarrhea. He was brought to the ER for evaluation. Upon arrival he was noted to have a BP of 240/130 mmHg. He was placed on a nitro drip and admitted for further evaluation and treatment. <Luly Nichols - 11/01/17 08:11> Hospital Course Hospital Course: Patient was started on a Nitroglycerin gtt, given 5mg of Lopressor IV and started on 50 mg of Metoprolol PO bid as well as Losartan 50/12.5 qd on admission. Cardiology was consulted. The following AM patient was feeling much better, was asymptomatic and wanting to go home. He had been weaned from the Nitro gtt with an improved BP. K+ and calcium had normalized. Echo showed ventricular hypertrophy with a normal LV function. Cardiology agreed with discharge with plan for patient to start home BP med of Metoprolol Succinae 50mg qd and Losartan HCT 50/12.5 with a 1 week FU in the cardiology office. Patient was encouraged to stop smoking. Patient was discharged to home in stable and satisfactory condition. He was to be on a low salt diet and to continue with same activity. Meds as per discharge list. He was to followup with Dr. Cho in 2 weeks. <Luly Nichols - 11/01/17 08:37> Objective Vital signs: Temp Pulse Resp BP Pulse Ox 98.0 F 79 18 145/90 92 L 10/28/17 20:00 10/29/17 08:00 10/29/17 08:00 10/29/17 08:00 10/29/17 08:00 <TammieErick - 11/02/17 15:10> Temp Pulse Resp BP Pulse Ox 98.0 F 79 18 145/90 92 L 10/28/17 20:00 10/29/17 08:00 10/29/17 08:00 10/29/17 08:00 10/29/17 08:00 <Luly Nichols - 11/01/17 08:37> Narrative: I & O for Last 24 hours: Intake & Output 10/26/17 10/27/17 10/28/17 10/29/17 11:59 11:59 11:59 11:59 Intake Total 3.875 / 3.875 566.50 / 566.50 Balance 3.875 / 3.875 566.50 / 566.50 Weight 260 lb 267 lb 3 oz - Constitutional no acute distress - *Routine Respiratory Exam Present: CTA bilaterally - *Routine Cardiovascular Exam Present: RRR - *Routine Abdominal Exam Present: soft, normoactive bowel sounds. Absent: tenderness - *Routine Extremities Exam Absent: edema <Luly Nichols - 11/01/17 08:39> Results Completed studies during hospitalization [Text1]: 10/28/17 CXR IMPRESSION: Mild cardiomegaly 10/29/17 Echocardiogram CONCLUSION: 1. Mildly enlarged left atrium, normal left ventricular size, moderate concentric left ventricular hypertrophy, visually estimated ejection fraction of 50% with no obvious regional wall motion abnormality, grade 1 diastolic dysfunction seen with tissue Doppler evidence of raised left atrial pressure. 2. Mild mitral and tricuspid regurgitation 3. No significant pericardial effusion noted. Laboratory Tests 10/28/17 10/28/17 10/28/17 10:34 10:34 13:30 WBC RBC Hgb Hct MCV MCH MCHC RDW Sodium 142 Potassium 2.8 L* Chloride 112 H Carbon Dioxide 22 Anion Gap 10.8 BUN 14 Creatinine 0.75 Estimated Creat Clear Estimated GFR Est GFR ( Amer) Glucose 92 Calcium 5.6 L Total Bilirubin 0.3 AST 9 L ALT 25 Alkaline Phosphatase 59 Total Creatine Kinase 63 CK-MB (CK-2) 1.7 CK-MB (CK-2) Rel Index 2.7 Troponin I 0.04 0.04 Total Protein 4.9 L Albumin 2.5 L Globulin 2.4 Albumin/Globulin Ratio 10/28/17 10/29/17 10/29/17 16:35 05:15 05:15 WBC 13.5 H D RBC 5.60 Hgb 15.6 D Hct 47.6 MCV 84.9 MCH 27.8 MCHC 32.7 RDW 14.7 Sodium 138 Potassium 4.4 D Chloride 101 Carbon Dioxide 30 D Anion Gap 11.4 BUN 19 H D Creatinine 1.29 D Estimated Creat Clear 129 Estimated GFR 61 Est GFR ( Amer) 74 D Glucose 110 H Calcium 8.6 D Total Bilirubin 0.4 AST 10 L ALT 32 D Alkaline Phosphatase 75 Total Creatine Kinase CK-MB (CK-2) CK-MB (CK-2) Rel Index Troponin I 0.03 Total Protein 6.9 D Albumin 3.6 D Globulin 3.3 H Albumin/Globulin Ratio 1.1 <Luly Nichols - 11/01/17 08:11> DS: Diagnosis - Discharge Diagnosis (1) Hypertensive urgency Status: Acute (2) Chest pain Status: Acute (3) Hypocalcemia Status: Acute (4) Hypokalemia Status: Acute (5) Morbid obesity with BMI of 40.0-44.9, adult Status: Chronic (6) Risk factors for obstructive sleep apnea Status: Acute (7) Tobacco abuse disorder Status: Chronic (8) Tobacco abuse counseling Status: Acute (9) Hypertension Status: Chronic <Erick Cho - 11/02/17 15:10> (1) Hypertensive urgency Status: Acute (2) Chest pain Status: Acute (3) Hypocalcemia Status: Acute (4) Hypokalemia Status: Acute (5) Morbid obesity with BMI of 40.0-44.9, adult Status: Chronic (6) Risk factors for obstructive sleep apnea Status: Acute (7) Tobacco abuse disorder Status: Chronic (8) Tobacco abuse counseling Status: Acute (9) Hypertension Status: Chronic <Luly Nichols - 11/01/17 08:40> Discharge Plan - Patient Discharge Instructions ACTIVITY: Continue current activity <Luly Nichols 11/01/17 08:11> DIET: low salt diet <Luly Nichols 11/01/17 08:11> Patient Instructions: High Blood Pressure, DI for Atypical Chest Pain < Erick Cho - 11/02/17 15:10> Forms: <Erick Cho - 11/02/17 15:10> - Follow up Plan Follow up with: Osmar Holland MD [Staff Physician] - 1 week Erick Cho MD [Primary Care Provider] - 2 weeks (in [facility] ) <Erick Cho - 11/02/17 15:10> Disposition: Home, Self-Care <Erick Cho - 11/02/17 15:10> Home Medications: Home Medications Medication Instructions Recorded Confirmed Type No Known Home Medications 10/28/17 10/28/17 History <Erick Cho - 11/02/17 15:10> Prescriptions/Medication Reconciliation: New Metoprolol Tartrate [Lopressor 50mg tablet] 50 mg PO BID #60 tab Varenicline Tartrate [Chantix] 1 each PO DIRECTED #1 tab.ds.pk hydroCHLOROthiazide [HCTZ 12.5mg capsule] 12.5 mg PO DAILY #30 cap Irbesartan [Avapro 75mg tablet] 75 mg PO DAILY #30 tab No Action No Known Home Medications <Erick Cho - 11/02/17 15:10> - Additional Information Additional Information: Concur with plan for discharge as outlined above. <Erick Cho - 11/02/17 15:10>
== END 2017-10-29 10:04 | disposition home or self-care (01) ==
LOC: ER 09:12 → 2ND 12:44 → INTOOBSV 12:44 → 2ND 13:15
PROVIDERS: ADMIT Family Medicine; ATTEND Family Medicine

== ENCOUNTER → 2018-07-04 14:49 | Outpatient (CLI) | payer BC, SELFPAY | PROVIDERS: PCP Pediatrics; Visit Provider Physician Assistant | DX: Z91.89 Other specified personal risk factors, not elsewhere classified (principal); R06.83 Snoring; E66.01 Morbid (severe) obesity due to excess calories; G47.33 Obstructive sleep apnea (adult) (pediatric); I10 Essential (primary) hypertension; R53.83 Other fatigue; Z68.41 Body mass index [BMI] 40.0-44.9, adult; Z71.6 Tobacco abuse counseling; Z72.0 Tobacco use | CPT/HCPCS: G0399 ==

== ENCOUNTER → 2018-11-04 13:25 | Outpatient (CLI) | payer BC, SELFPAY ==
--- NOTE | 2018-11-04 13:36 | CT_ITS ---
PROCEDURE: CT FOOT RT WO CON CLINICAL HISTORY: pain Injury with pain, pain across the top of the foot COMPARISON: Foot R from 10/13/2018 TECHNIQUE: Axial images obtained with sagittal and coronal reformats. All CT scans at the facility use one or more dose reduction, viz: automated exposure control, ma/kV adjustment per patient size (including targeted exams where dose is matched to indication, i.e. head), or iterative reconstruction technique. FINDINGS: No obvious fracture or dislocation. There are minimal osteoarthritic changes of the 1st metatarsophalangeal joint and at the head of the 1st metatarsal with adjacent sesamoids. The talar dome has an unremarkable appearance. There is a small amount of gas in the joint space of the ankle posteriorly nonspecific. Along the distal and lateral aspect of the medial cuneiform there is a well-circumscribed calcific density measuring 8 mm. This is felt to be an accessory ossicle as opposed to an avulsion fracture. Bone of origin is not identified. There is a subcutaneous fluid collection along the dorsal aspect of the foot measuring 4.2 cm transverse and 2.7 cm longitudinal and 1.4 cm in thickness. This could represent a resolving hematoma/seroma. No underlying fracture at this area. There is mild prominence of the space between the base of the 1st and 2nd metatarsals however common the relationship between the 2nd metatarsal tarsal joint is maintained. No other significant anomalies are evident. IMPRESSION: 1. No acute fracture. 2. Mild prominence of the space between the base of the 1st and 2nd metatarsals. The 1 cannot exclude the possibility of a ligamentous injury/sprain of the Lisfranc ligament based on these findings however no fractures are evident at this region. 3. Subcutaneous fluid collection along the dorsal aspect of the foot which may be due to hematoma/seroma 4. Well-circumscribed calcific density along the distal and lateral aspect of the medial cuneiform which may be due to either an old avulsion fracture or an accessory center of ossification Dictated by: Norman Brown MD 11/05/2018 11:46 Signed by: <Electronically signed by Norman Brown MD in [place]> 11/05/2018 11:46
== END ==
LOC: RAD 13:27
PROVIDERS: PCP Pediatrics; Visit Provider Podiatrist
DX: S92.901A Unspecified fracture of right foot, initial encounter for closed fracture (principal); S93.621A Sprain of tarsometatarsal ligament of right foot, initial encounter; S97.81XA Crushing injury of right foot, initial encounter
CPT/HCPCS: 73700

== ENCOUNTER 2018-12-26 09:06 | Observation (INO) ==
--- NOTE | 2018-12-26 09:20 | Emergency Department Note ---
ED Disposition Clinical Impression: Chest pain, Diabetes mellitus, type II, Hypertension Disposition: Admitted as Observation Condition on Discharge: Serious Time of Disposition: 11:06 - Critical Care Critical Care Time: No Attestation: On , the high probability of a clinically significant, sudden or life threatening deterioration of the following system(s) required my full and direct attention, intervention and personal management. The time I documented below is in addition to time spent performing reported procedures but includes the following listed in this critical care notation. Medical Decision Making - Medical Records Medical records reviewed: Yes: I reviewed the patient's medical records. - Ananda Inquiry Pt receiving controlled substance: No Vital Signs: 12/26/18 09:14 12/26/18 09:28 12/26/18 09:36 Temperature 98.8 F Temperature Source Oral Pulse Rate [Right Radial] 121 H 118 H 97 H Respiratory Rate 16 Blood Pressure [Right Arm] 165/121 H 200/107 H 147/87 H Blood Pressure Mean [Right Arm] 135 138 107 Blood Pressure Source [Right Arm] Automatic Cuff Blood Pressure Position [Right Arm] Sitting Standing Sitting 02 Sat by Pulse Oximetry 96 Oxygen Delivery Method Room Air 12/26/18 09:59 12/26/18 10:33 12/26/18 11:03 Temperature Temperature Source Pulse Rate [Right Radial] 93 H 94 H 91 H Respiratory Rate Blood Pressure [Right Arm] 143/107 H 154/86 H 143/81 H Blood Pressure Mean [Right Arm] 119 108 101 Blood Pressure Source [Right Arm] Automatic Cuff Automatic Cuff Blood Pressure Position [Right Arm] Sitting Sitting Sitting 02 Sat by Pulse Oximetry 95 95 96 Oxygen Delivery Method Room Air Room Air Room Air - Lab Data Lab results reviewed: Yes: I reviewed the patient's lab results. Lab Results 12/26/18 09:17: WBC 10.8, RBC 6.08, Hgb 17.6, Hct 52.8 H, MCV 87.0, MCH 29.0, M CHC 33.3, RDW 13.8, Plt Count 207, MPV 8.0, Neut % (Auto) 64.1, Lymph % (Auto) 30.1, [place] % (Auto) 3.4, Eos % (Auto) 1.8, Baso % (Auto) 0.6, Neut # (Auto) 6.9, Lymph # (Auto) 3.3, [place] # (Auto) 0.4, Eos # (Auto) 0.2, Baso # (Auto) 0.1 12/26/18 09:17: Sodium 136, Potassium 3.9, Chloride 97 L, Carbon Dioxide 29, Anion Gap 13.9, BUN 14, Creatinine 1.09, Estimated Creat Clear 150, Estimated GFR 74, Est GFR ( Amer) 90, Glucose 204 H, Calcium 9.7, Troponin I < 0.02 12/26/18 09:17: D-Dimer < 100 Result diagrams: 12/26/18 09:17 12/26/18 09:17 Orders (Tests/Meds): ED MEDICATIONS Discontinued Medications Generic Name Dose Route Start Last Admin Trade Name Freq PRN Reason Stop Dose Admin Aspirin 324 mg 12/26/18 09:25 12/26/18 09:30 Aspirin 81mg Chewable Tablet PO 12/26/18 09:26 324 mg ONCE ONE Administration Labetalol HCl 20 mg 12/26/18 09:24 12/26/18 09:30 Labetalol 5mg/Ml 20ml Mdv IV 12/26/18 09:25 20 mg ONCE ONE Administration - ECG Data Tracing #1 I reviewed this ECG and interpreted as documented below: Normal Sinus Rhythm: No Arrhythmias present: sinus tach Additional Comments: Sinus tach without acute pathology. General Adult HPI - General Chief complaint: Chest Pain Stated complaint: chest tightness no pain Time Seen by Provider: 12/26/18 09:15 - History of Present Illness HPI narrative: 43-year old male history of smoking and mid truncal obesity presents with complaints of mild upper chest tightness and generalized weakness. Patient has a history of smoking. Onset (ago): hour(s) (3) Location: chest Radiation: non-radiation Severity: moderate Quality: aching Consistency: constant Relieving factors: none Exacerbating factors: none Associated symptoms: malaise, weakness Treatments prior to arrival: none - Related Data Home Medications Medication Instructions Recorded Confirmed Metoprolol Tartrate [Lopressor 50 mg PO BID 10/13/18 11/10/18 50mg tablet] hydroCHLOROthiazide [HCTZ 12.5mg 12.5 mg PO DAILY 10/13/18 11/10/18 capsule] Previous Rx's Medication Instructions Recorded Ibuprofen [Ibuprofen 600mg 600 mg PO Q6HP PRN #30 tab 10/13/18 Tablet] losartan 50 mg tablet 50 mg PO DAILY #90 tab 10/31/18 Allergies Allergy/AdvReac Type Severity Reaction Status Date / Time No Known Allergies Allergy Verified 11/10/18 08:28 [facility] History - Hepatitis A Screen Attestation statement:: This patient has been screened for Hepatitis A risk factors. I have reviewed the patient's past medical history: Yes Medical History: Reports:: Hypertension, Kidney Stones Denies:: Diabetes Mellitus Type 1, Diabetes Mellitus Type 2 Laterality Cases: Other Surgeries: Yes: Ureter Stent, Other Comment: Kidney stones, polyps removed from vocal cords in 2002 - Social History Smoking Status: Current every day smoker Tobacco Type: cigarettes, smokeless tobacco # Packs/Day (cigarettes): 1 #Yrs smoked (if former smoker): 30 Alcohol Intake: current Alcohol Intake Frequency:: holidays/special occasions only Substance Use Type: denies use Occupational Status: employed Family Hx:: Diabetes, Heart Attack, Cancer, Hypertension ROS Obtained: Yes Systems reviewed as appropriate & no additional complaints - Constitutional Constitutional: Reports malaise, Reports weakness - Eyes Eyes: Reports system reviewed and no additional complaints, except as docu - ENT Ears, Nose, Mouth, and Throat: Reports system reviewed and no additional complaints, except as docu - Cardiovascular Cardiovascular: Denies chest pain, Denies diaphoresis, Denies dyspnea, Denies irregular heart rhythm, Denies leg edema, Denies shortness of breath when lying down, Denies palpitations, Denies pedal edema, Denies radiating jaw, neck or arm pain, Reports rapid heart rate, Denies fainting - Respiratory Respiratory: Yes system reviewed and no additional complaints, except as docu - Gastrointestinal Gastrointestingal: Reports: system reviewed and no additional complaints, except as docu - Genitourinary Male Genitourinary: Reports system reviewed and no additional complaints, except as docu Female Genitourinary: Reports system reviewed and no additional complaints, except as docu - Musculoskeletal Musculoskeletal: Reports system reviewed and no additional complaints, except as docu - Integumentary/Breasts Skin/Breast: Reports system reviewed and no additional complaints, except as docu - Neurologic Neurologic: Reports system reviewed and no additional complaints, except as docu Physical Exam - General General appearance: alert, in no apparent distress - Head Head exam: atraumatic, normocephalic, normal inspection - Eye Eye exam: Present: normal appearance, PERRL, EOMI - ENT ENT exam: Present: normal exam, normal oropharynx, mucous membranes moist - Neck Neck exam: Present: normal inspection, full ROM, trachea midline. Absent: meningismus, lymphadenopathy - Chest Chest inspection: Present: normal inspection, symmetric chest wall rise. Absent: tenderness - Respiratory Respiratory exam: Present: normal lung sounds bilaterally. Absent: respiratory distress - Cardiovascular Cardiovascular exam: Present: regular rate, normal rhythm. Absent: JVD - Abdominal Exam Abdominal exam: Present: soft, normal bowel sounds. Absent: distention, tenderness, guarding - Back Exam Back exam: Present: normal inspection. Absent: tenderness - Neurological Exam Neurological exam: Present: alert, oriented X3, CN II-XII intact, normal gait. Absent: motor sensory deficit - Psychiatric Psychiatric exam: Present: normal affect, normal mood - Skin Skin exam: Present: warm, dry, intact, normal color - Lymphatic Lymphatic Findings: no adenopathy
[2018-12-26 09:32] LABS: Basophils # 0.1 K/mm3 (0-0.2); Basophils % 0.6 % (0.1-2.0); Eosinophils # 0.2 K/mm3 (0.0-0.4); Eosinophils % 1.8 % (0.1-12.0); Hematocrit 52.8 % (42.0-52.0); Hemoglobin 17.6 g/dL (14.1-18.0); Lymphocytes # 3.3 K/mm3 (0.7-4.5); Lymphocytes % 30.1 % (10-50); Mean Corpuscular HGB Conc 33.3 g/dL (31.8-35.4); Monocytes # 0.4 K/mm3 (0.1-1.0); Monocytes % 3.4 % (1.7-9.3); Neutrophils # 6.9 K/mm3 (1.8-7.8); Neutrophils % 64.1 % (37.0-80.0); Platelet Count 207 K/mm3 (142-424); Red Blood Count 6.08 M/mm3 (4.60-6.20); Red Cell Distribution Width 13.8 % (11.5-17.5); White Blood Count 10.8 K/mm3 (4.8-10.8)
[2018-12-26 10:17] LABS: Anion Gap 13.9 mEq/L (5-15); Blood Urea Nitrogen 14 mg/dL (7-18); Calcium 9.7 mg/dL (8.5-10.1); Carbon Dioxide 29 mmol/L (21.0-32.0); Chloride 97 mmol/L (98-107); Glucose 204 mg/dL (74-106); Sodium 136 mmol/L (136-145)
--- NOTE | 2018-12-26 14:50 | Pharmacy Consult Notes ---
[facility] Pharmacy VTE Monitoring - Patient Demographics Admission date: 12/26/18 Report Date: 12/26/18 Time: 14:50 Allergies/Adverse Reactions: Patient Allergies No Known Allergies Allergy (Verified 11/10/18 08:28) Height: 1.73 m Weight: 120.202 kg Patient Problems: Current Active Problems Chest pain (Acute) Hypertension (Chronic) Diabetes mellitus, type II (Acute) - VTE Risk Labs: VTE Related Lab Results Hgb 17.6 g/dL (14.1-18.0) 12/26/18 09:17 Hct 52.8 % (42.0-52.0) H 12/26/18 09:17 Plt Count 207 K/mm3 (142-424) 12/26/18 09:17 BUN 14 mg/dL (7-18) 12/26/18 09:17 Creatinine 1.09 mg/dL (0.70-1.30) 12/26/18 09:17 Estimated Creat Clear 150 mL/min (50-200) 12/26/18 09:17 Was VTE Risk Assessment Performed: No VTE Score: 2 VTE Risk Level: Very Low Risk - Prophylaxis VTE Prophylaxis Ordered?: Yes Types of VTE Prophylaxis: TEDS Knee High Location of Applied Device: Bilateral Lower Extremeties - VTE Diagnosis Confirmed Treatment or plan recommended: Continue Current Treatment
--- NOTE | 2018-12-26 15:17 | Consult Report ---
History of Present Illness Consult date: 12/26/18 Requesting physician: Tyron Simon Consult reason: chest pain Chief complaint: Chest pain, HTN urgency Additional Medical History:: 1. Hypertension, diagnosed approximately 2002. A. Noncompliant with medical therapy B. Echo, 2018, 1. Mildly enlarged left atrium, normal left ventricular size, moderate concentric left ventricular hypertrophy, visually estimated ejection fraction of 50% with no obvious regional wall motion abnormality, grade 1 diastolic dysfunction seen with tissue Doppler evidence of raised left atrial pressure. 2. Mild mitral and tricuspid regurgitation 3. No significant pericardial effusion noted 2. History of snoring and fatigue with suspected obstructive sleep apnea due to 's witnessing apneic periods during sleep 3. Morbid obesity 4. Tobacco use History of present illness: 43-year-old white male with known history of long-standing hypertension, hyperlipidemia, obesity and suspected obstructive sleep apnea presented to the emergency department today for evaluation of fatigue, headaches, chest discomfort and elevated blood pressure. Patient ran out of his blood pressure medicines last week and has noted a continual increase in symptoms noted above. Patient's states that he is noncompliant with my recommendations for getting stress testing and treatment of his sleep apnea in the past. Patient was given IV and p.o. metoprolol with some improvement in his symptoms and slight improvement in his blood pressure. EKG shows sinus tachycardia with nonspecific ST-T abnormalities. Initial troponins normal x2. Patient was admitted for further evaluation with cardiology consultation. [facility] History Medical History: Reports:: Hypertension, Kidney Stones Denies:: Diabetes Mellitus Type 1, Diabetes Mellitus Type 2 *Have you ever received a pneumonia vaccine?: No *Have you received a flu vaccine this season?: Yes Laterality Cases: Bilateral: Myringotomy (Ear Tubes), Tonsillectomy Other Surgeries: Yes: Ureter Stent, Other - *Social History Educational Level: Completed High School Smoking Status: Current every day smoker Tobacco Type: cigarettes # Packs/Day (cigarettes): 2 #Yrs smoked (if former smoker): 30 Alcohol Intake: never Alcohol Intake Frequency:: holidays/special occasions only Substance Use Type: denies use *Occupational Status:: employed Housing: house Household Members: family *Travel in the last 8 weeks: None Family Hx:: Cancer, Diabetes, Heart Attack, Hypertension, Stroke Meds Home Medications Medication Instructions Recorded Confirmed Type Metoprolol Tartrate [Lopressor 50 mg PO BID 10/13/18 12/26/18 History 50mg tablet] hydroCHLOROthiazide [HCTZ 12.5mg 12.5 mg PO DAILY 10/13/18 12/26/18 History capsule] Losartan Potassium 50 mg PO DAILY 12/26/18 12/26/18 History Metoprolol Tartrate 50 mg PO NEEDED PRN 12/26/18 12/26/18 History Pantoprazole Sodium [Protonix 40mg 40 mg PO BID 12/26/18 12/26/18 History tablet] Allergies Allergy/AdvReac Type Severity Reaction Status Date / Time No Known Allergies Allergy Verified 11/10/18 08:28 Review of Systems - *Cardiovascular Reports chest pain, Reports rapid, pounding, or irregular heartbeat - *Respiratory Reports shortness of breath with activity - *Gastrointestinal Denies abdominal pain, Denies nausea, Denies vomiting - *Genitourinary Denies blood in urine - *Musculoskeletal Denies joint pain, Denies back pain - *Neurologic Reports weakness, Denies fainting Exam Vital signs and Labs for Last 24 Hours: Temp Pulse Resp BP Pulse Ox 98.7 F 89 16 182/108 H 95 12/26/18 11:35 12/26/18 11:35 12/26/18 11:35 12/26/18 11:47 12/26/18 12:11 Laboratory Results - last 24 hr 12/26/18 09:17: WBC 10.8, RBC 6.08, Hgb 17.6, Hct 52.8 H, MCV 87.0, MCH 29.0, MCHC 33.3, RDW 13.8, Plt Count 207, MPV 8.0, Neut % (Auto) 64.1, Lymph % (Auto) 30.1, [place] % (Auto) 3.4, Eos % (Auto) 1.8, Baso % (Auto) 0.6, Neut # (Auto) 6.9, Lymph # (Auto) 3.3, [place] # (Auto) 0.4, Eos # (Auto) 0.2, Baso # (Auto) 0.1 12/26/18 09:17: Sodium 136, Potassium 3.9, Chloride 97 L, Carbon Dioxide 29, A nion Gap 13.9, BUN 14, Creatinine 1.09, Estimated Creat Clear 150, Estimated GFR 74, Est GFR ( Amer) 90, Glucose 204 H, Calcium 9.7, Troponin I < 0.02 12/26/18 09:17: D-Dimer < 100 12/26/18 14:12: Troponin I < 0.02 I & O for Last 24 hours: Intake & Output 12/24/18 12/25/18 12/26/18 12/27/18 11:59 11:59 11:59 11:59 Intake Total 240 / 240 Balance 240 / 240 Weight 265 lb - *Routine HEENT Exam Head: Present: normocephalic Eye: Present: EOMI, PERRL ENT: Present: mucous membranes moist - *Routine Neck Exam Present: supple. Absent: JVD, carotid bruit - *Routine Respiratory Exam Present: CTA bilaterally. Absent: accessory muscle use, rales, rhonchi, wheezes - *Routine Cardiovascular Exam Present: RRR. Absent: murmur, gallop, rubs - *Routine Abdominal Exam Present: soft. Absent: tenderness, distended, guarding - *Routine Extremities Exam Absent: edema, calf tenderness - *Routine Neurological Exam Present: alert, oriented X3, moving all extremities Assessment and Plan (1) Chest pain Current visit: Yes Status: Acute Category: Medical Code(s): R07.9 - Chest pain, unspecified (2) Hypertensive urgency Current visit: No Status: Acute Category: Medical Code(s): I16.0 - Hypertensive urgency (3) Morbid obesity with BMI of 40.0-44.9, adult Current visit: No Status: Chronic Category: Medical Code(s): E66.01 - Morbid (severe) obesity due to excess calories; Z68.41 - Body mass index (BMI) 40.0-44.9, adult (4) Tobacco abuse disorder Current visit: No Status: Chronic Category: Medical Code(s): Z72.0 - Tobacco use - Assessment and plan all Dx Assessment and Plan for all problems:: 1. Resume metoprolol 50 mg but increase to 3 times daily 2. Resume ARB but increase to twice daily 3. we will obtain Lexiscan Myoview tomorrow to assess for coronary artery disease 4. We will obtain renal duplex to evaluate for renal artery stenosis 5. Patient likely has obstructive sleep apnea but has refused evaluation in the past.
--- NOTE | 2018-12-26 19:51 | History & Physical Report ---
*Admission Date: 12/26/18 *Chief complaint: Chest pressure *History of present illness: 43-year-old white male with known history of long-standing hypertension, hyperlipidemia, obesity and suspected obstructive sleep apnea presented to the emergency department today for evaluation of fatigue, headaches, chest discomfort and elevated blood pressure. Patient ran out of his blood pressure medicines last week and has noted a continual increase in symptoms noted above. Patient's states that he is noncompliant with cardiology recommendations for getting stress testing and treatment of his sleep apnea in the past. Patient was given IV and p.o. metoprolol with some improvement in his symptoms and slight improvement in his blood pressure. EKG shows sinus tachycardia with nonspecific ST-T abnormalities. Initial troponins normal x2. Patient was admitted for further evaluation with cardiology consultation. [facility] History I have reviewed the patient's past medical history: Yes Medical History: Reports:: Hypertension, Kidney Stones Denies:: Diabetes Mellitus Type 1, Diabetes Mellitus Type 2 *Have you ever received a pneumonia vaccine?: No *Have you received a flu vaccine this season?: Yes Laterality Cases: Bilateral: Myringotomy (Ear Tubes), Tonsillectomy Other Surgeries: Yes: Ureter Stent, Other - *Social History Educational Level: Completed High School Smoking Status: Current every day smoker Tobacco Type: cigarettes # Packs/Day (cigarettes): 2 #Yrs smoked (if former smoker): 30 Alcohol Intake: never Alcohol Intake Frequency:: holidays/special occasions only Substance Use Type: denies use *Occupational Status:: employed Housing: house Household Members: family *Travel in the last 8 weeks: None Family Hx:: Cancer, Diabetes, Heart Attack, Hypertension, Stroke Review of Systems - Review of Systems Review of systems:: pertinent systems reviewed and negative unless documented below - *Neurologic Reports weakness, Denies fainting Meds Home Medications Medication Instructions Recorded Confirmed Type Metoprolol Tartrate [Lopressor 50 mg PO BID 10/13/18 12/26/18 History 50mg tablet] hydroCHLOROthiazide [HCTZ 12.5mg 12.5 mg PO DAILY 10/13/18 12/26/18 History capsule] Losartan Potassium 50 mg PO DAILY 12/26/18 12/26/18 History Metoprolol Tartrate 50 mg PO NEEDED PRN 12/26/18 12/26/18 History Pantoprazole Sodium [Protonix 40mg 40 mg PO BID 12/26/18 12/26/18 History tablet] Allergies Allergy/AdvReac Type Severity Reaction Status Date / Time No Known Allergies Allergy Verified 11/10/18 08:28 Exam Vital signs and Labs for Last 24 Hours: Temp Pulse Resp BP Pulse Ox 98.3 F 82 18 165/92 H 95 12/26/18 16:00 12/26/18 16:00 12/26/18 16:00 12/26/18 16:00 12/26/18 16:00 Laboratory Results - last 24 hr 12/26/18 09:17: WBC 10.8, RBC 6.08, Hgb 17.6, Hct 52.8 H, MCV 87.0, MCH 29.0, MCHC 33.3, RDW 13.8, Plt Count 207, MPV 8.0, Neut % (Auto) 64.1, Lymph % (Auto) 30.1, [place] % (Auto) 3.4, Eos % (Auto) 1.8, Baso % (Auto) 0.6, Neut # (Auto) 6.9, Lymph # (Auto) 3.3, [place] # (Auto) 0.4, Eos # (Auto) 0.2, Baso # (Auto) 0.1 12/26/18 09:17: Sodium 136, Potassium 3.9, Chloride 97 L, Carbon Dioxide 29, Anion Gap 13.9, BUN 14, Creatinine 1.09, Estimated Creat Clear 150, Estimated GFR 74, Est GFR ( Amer) 90, Glucose 204 H, Calcium 9.7, Troponin I < 0.02 12/26/18 09:17: D-Dimer < 100 12/26/18 14:12: Troponin I < 0.02 12/26/18 16:25: POC Glucose 181 H I & O for Last 24 hours: Intake & Output 12/24/18 12/25/18 12/26/18 12/27/18 11:59 11:59 11:59 11:59 Intake Total 480 / 480 Balance 480 / 480 Weight 265 lb Narrative: *Routine HEENT Exam Head: Present: normocephalic Eye: Present: EOMI, PERRL ENT: Present: mucous membranes moist - *Routine Neck Exam Present: supple. Absent: JVD, carotid bruit - *Routine Respiratory Exam Present: CTA bilaterally. Absent: accessory muscle use, rales, rhonchi, wheezes - *Routine Cardiovascular Exam Present: RRR. Absent: murmur, gallop, rubs - *Routine Abdominal Exam Present: soft. Absent: tenderness, distended, guarding - morbid obesity - *Routine Extremities Exam Absent: edema, calf tenderness - *Routine Neurological Exam Present: alert, oriented X3, moving all extremities Assessment and Plan (1) Chest pain Current visit: Yes Status: Acute Category: Medical Code(s): R07.9 - Chest pain, unspecified (2) Hypertensive urgency Current visit: No Status: Acute Category: Medical Code(s): I16.0 - Hypertensive urgency (3) Morbid obesity with BMI of 40.0-44.9, adult Current visit: No Status: Chronic Category: Medical Code(s): E66.01 - Morbid (severe) obesity due to excess calories; Z68.41 - Body mass index (BMI) 40.0-44.9, adult (4) Tobacco abuse disorder Current visit: No Status: Chronic Category: Medical Code(s): Z72.0 - 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
--- NOTE | 2018-12-26 19:58 | Electrocardiograph Report ---
APPROVED REPORT Exam: Resting ECG HR:117 bpm ECG Measurements Heart Rate 117 AXES MS 142 P 52 QRSd 96 QRS 37 QT 330 T55 QTc 460 <Conclusion> Sinus tachycardia Possible Anterior infarct, age undetermined Abnormal ECG Electronically signed by : Tyron Simon, 12/26/2018 19:58:06
[2018-12-27 07:11] LABS: Basophils # 0.1 K/mm3 (0-0.2); Basophils % 0.8 % (0.1-2.0); Eosinophils # 0.2 K/mm3 (0.0-0.4); Eosinophils % 1.8 % (0.1-12.0); Hematocrit 49.8 % (42.0-52.0); Hemoglobin 16.6 g/dL (14.1-18.0); Lymphocytes # 3.4 K/mm3 (0.7-4.5); Lymphocytes % 28.6 % (10-50); Mean Corpuscular HGB Conc 33.4 g/dL (31.8-35.4); Mean Corpuscular Volume 87.1 fl (80-94); Mean Platelet Volume 8.1 fl (7.4-10.4); Monocytes # 0.7 K/mm3 (0.1-1.0); Monocytes % 5.7 % (1.7-9.3); Neutrophils # 7.5 K/mm3 (1.8-7.8); Neutrophils % 63.2 % (37.0-80.0); Platelet Count 210 K/mm3 (142-424); Red Blood Count 5.71 M/mm3 (4.60-6.20); White Blood Count 11.8 K/mm3 (4.8-10.8)
--- NOTE | 2018-12-27 07:15 | Progress Note ---
Internal Medicine - PN: Subj *Date: 12/27/18 *Time: 07:14 Interval history: Patient did well overnight, no complaints, no chest pain. Exam Vital signs and Labs for Last 24 Hours: Temp Pulse Resp BP Pulse Ox 97.7 F 77 18 112/81 96 12/27/18 04:00 12/27/18 04:00 12/27/18 04:00 12/27/18 04:00 12/27/18 04:00 Laboratory Results - last 24 hr 12/26/18 09:17: WBC 10.8, RBC 6.08, Hgb 17.6, Hct 52.8 H, MCV 87.0, MCH 29.0, MCHC 33.3, RDW 13.8, Plt Count 207, MPV 8.0, Neut % (Auto) 64.1, Lymph % (Auto) 30.1, [place] % (Auto) 3.4, Eos % (Auto) 1.8, Baso % (Auto) 0.6, Neut # (Auto) 6.9, Lymph # (Auto) 3.3, [place] # (Auto) 0.4, Eos # (Auto) 0.2, Baso # (Auto) 0.1 12/26/18 09:17: Sodium 136, Potassium 3.9, Chloride 97 L, Carbon Dioxide 29, Anion Gap 13.9, BUN 14, Creatinine 1.09, Estimated Creat Clear 150, Estimated GFR 74, Est GFR ( Amer) 90, Glucose 204 H, Calcium 9.7, Troponin I < 0.02 12/26/18 09:17: D-Dimer < 100 12/26/18 14:12: Troponin I < 0.02 12/26/18 16:25: POC Glucose 181 H 12/26/18 20:20: POC Glucose 162 H 12/26/18 20:22: Troponin I < 0.02 12/27/18 06:20: POC Glucose 133 H I & O for Last 24 hours: Intake & Output 12/24/18 12/25/18 12/26/18 12/27/18 11:59 11:59 11:59 11:59 Intake Total 480 / 480 Balance 480 / 480 Weight 265 lb 265 lb Narrative: Alert, oriented x3, ambulating about the room without difficulty. Lungs have smoker's rhonchi but otherwise clear. Heart rate regular. Abdomen soft and nontender. No edema noted. Neurologic exam intact Assessment and Plan (1) Chest pain Current visit: Yes Status: Acute Category: Medical Code(s): R07.9 - Chest pain, unspecified (2) Hypertensive urgency Current visit: No Status: Acute Category: Medical Code(s): I16.0 - Hypertensive urgency (3) Morbid obesity with BMI of 40.0-44.9, adult Current visit: No Status: Chronic Category: Medical Code(s): E66.01 - Morbid (severe) obesity due to excess calories; Z68.41 - Body mass index (BMI) 40.0-44.9, adult (4) Tobacco abuse disorder Current visit: No Status: Chronic Category: Medical Code(s): Z72.0 - Tobacco use - Assessment and plan all Dx Assessment and Plan for all problems:: Clinically stable. Stress testing today. If normal will discharge with close follow-up. If abnormal left heart catheterization consideration.
[2018-12-27 07:35] LABS: Albumin Level 3.9 gm/dL (3.4-5.0); Albumin/Globulin Ratio 1.1 (1.1-1.8); Anion Gap 14.2 mEq/L (5-15); Bilirubin,Total 0.3 mg/dL (0.2-1.0); Calcium 9.2 mg/dL (8.5-10.1); Chol/HDL Ratio 4.7 (1-3.5); Globulin 3.5 gm/dl (1.3-3.2); Total Protein,Serum 7.4 gm/dL (6.4-8.2)
--- NOTE | 2018-12-27 12:54 | Discharge Summary ---
General - General Admission date:: 12/26/18 Discharge date: 12/27/18 HPI HPI: 43-year-old white male with known history of long-standing hypertension, hyperlipidemia, obesity and suspected obstructive sleep apnea presented to the emergency department today for evaluation of fatigue, headaches, chest discomfort and elevated blood pressure. Patient ran out of his blood pressure medicines last week and has noted a continual increase in symptoms noted above. Patient's states that he is noncompliant with cardiology recommendations for getting stress testing and treatment of his sleep apnea in the past. Patient was given IV and p.o. metoprolol with some improvement in his symptoms and slight improvement in his blood pressure. EKG shows sinus tachycardia with nonspecific ST-T abnormalities. Initial troponins normal x2. Patient was admitted for further evaluation with cardiology consultation. Hospital Course Hospital Course: Admitted to [facility] - cardiac enzymes negative..Admitted to hospital, cardiac enzymes negative. Because of high risk factor subjected to stress testing which was unremarkable with no evidence of reversible perfusion deficits. Patient will be discharged home. I will see him in the next 3 days to reevaluate his ongoing medical problems. Objective Vital signs: Temp Pulse Resp BP Pulse Ox 97.7 F 78 18 162/97 H 97 12/27/18 11:39 12/27/18 11:39 12/27/18 11:39 12/27/18 12:48 12/27/18 11:39 no acute distress, morbidly obese - *Routine HEENT Exam Head: Present: normocephalic Eye: Present: EOMI, PERRL - *Routine Respiratory Exam Present: CTA bilaterally - *Routine Cardiovascular Exam Present: RRR, Normal S1, Normal S2 - *Routine Abdominal Exam Present: soft, normoactive bowel sounds - *Routine Extremities Exam Present: full ROM - *Routine Neurological Exam Present: alert, oriented X3 Results Labs on day of discharge: Labs from last 24 hours 12/27/18 12/27/18 12/27/18 11:19 06:37 06:37 WBC 11.8 H RBC 5.71 Hgb 16.6 Hct 49.8 MCV 87.1 MCH 29.1 MCHC 33.4 RDW 14.0 Plt Count 210 MPV 8.1 Neut % (Auto) 63.2 Lymph % (Auto) 28.6 [place] % (Auto) 5.7 Eos % (Auto) 1.8 Baso % (Auto) 0.8 Neut # (Auto) 7.5 Lymph # (Auto) 3.4 [place] # (Auto) 0.7 Eos # (Auto) 0.2 Baso # (Auto) 0.1 Sodium 138 Potassium 4.2 Chloride 100 Carbon Dioxide 28 Anion Gap 14.2 BUN 20 H D Creatinine 1.03 Estimated Creat Clear 159 Estimated GFR 79 Est GFR ( Amer) 96 Glucose 135 H D POC Glucose 114 H Calcium 9.2 Total Bilirubin 0.3 AST 17 ALT 43 Alkaline Phosphatase 80 Troponin I Total Protein 7.4 Albumin 3.9 Globulin 3.5 H Albumin/Globulin Ratio 1.1 Triglycerides 337 H Cholesterol 164 LDL Cholesterol 62 VLDL Cholesterol 67 H HDL Cholesterol 35 Cholesterol/HDL Ratio 4.7 H 12/27/18 12/26/18 12/26/18 06:20 20:22 20:20 WBC RBC Hgb Hct MCV MCH MCHC RDW Plt Count MPV Neut % (Auto) Lymph % (Auto) [place] % (Auto) Eos % (Auto) Baso % (Auto) Neut # (Auto) Lymph # (Auto) [place] # (Auto) Eos # (Auto) Baso # (Auto) Sodium Potassium Chloride Carbon Dioxide Anion Gap BUN Creatinine Estimated Creat Clear Estimated GFR Est GFR ( Amer) Glucose POC Glucose 133 H 162 H Calcium Total Bilirubin AST ALT Alkaline Phosphatase Troponin I < 0.02 Total Protein Albumin Globulin Albumin/Globulin Ratio Triglycerides Cholesterol LDL Cholesterol VLDL Cholesterol HDL Cholesterol Cholesterol/HDL Ratio 12/26/18 12/26/18 16:25 14:12 WBC RBC Hgb Hct MCV MCH MCHC RDW Plt Count MPV Neut % (Auto) Lymph % (Auto) [place] % (Auto) Eos % (Auto) Baso % (Auto) Neut # (Auto) Lymph # (Auto) [place] # (Auto) Eos # (Auto) Baso # (Auto) Sodium Potassium Chloride Carbon Dioxide Anion Gap BUN Creatinine Estimated Creat Clear Estimated GFR Est GFR ( Amer) Glucose POC Glucose 181 H Calcium Total Bilirubin AST ALT Alkaline Phosphatase Troponin I < 0.02 Total Protein Albumin Globulin Albumin/Globulin Ratio Triglycerides Cholesterol LDL Cholesterol VLDL Cholesterol HDL Cholesterol Cholesterol/HDL Ratio DS: Diagnosis - Discharge Diagnosis (1) Chest pain Status: Resolved (2) Hypertensive urgency Status: Resolved (3) Morbid obesity with BMI of 40.0-44.9, adult Status: Chronic (4) Tobacco abuse disorder Status: Chronic Discharge Plan - Patient Discharge Instructions ACTIVITY: Continue current activity DIET: continue same diet, low fat, low cholesterol Patient Instructions: Complications of Type 2 Diabetes, Type 2 Diabetes, Essential Hypertension, DI for Diabetes Type 2, DI for Chest Pain - Follow up Plan Follow up with: Tyron Simon MD [Staff Physician] - 12/30/18 Disposition: Home, Self-[facility] Medications: Home Medications Medication Instructions Recorded Confirmed Type Metoprolol Tartrate [Lopressor 50 mg PO BID 10/13/18 12/26/18 History 50mg tablet] hydroCHLOROthiazide [HCTZ 12.5mg 12.5 mg PO DAILY 10/13/18 12/26/18 History capsule] Losartan Potassium 50 mg PO DAILY 12/26/18 12/26/18 History Metoprolol Tartrate 50 mg PO NEEDED PRN 12/26/18 12/26/18 History Pantoprazole Sodium [Protonix 40mg 40 mg PO BID 12/26/18 12/26/18 History tablet] Prescriptions/Medication Reconciliation: Continued hydroCHLOROthiazide [HCTZ 12.5mg capsule] 12.5 mg PO DAILY Metoprolol Tartrate 50 mg PO NEEDED PRN PRN Reason: SBP>180 Metoprolol Tartrate [Lopressor 50mg tablet] 50 mg PO BID Pantoprazole Sodium [Protonix 40mg tablet] 40 mg PO BID Losartan Potassium 50 mg PO DAILY - Problem Reconciliation Problems Reviewed?: Yes
--- NOTE | 2018-12-27 13:03 | Progress Note ---
Subjective Date: 12/27/18 Time: 13:01 Principal diagnosis: HTN Interval history: 43-year-old white male in room in no acute distress. States he feels much better than he did yesterday. No further chest pain and blurred vision has resolved. Stress test shows no evidence of ischemia with normal ejection fraction. Echocardiogram and renal ultrasound/duplex are pending at this time. Blood pressure is improved but not to goal Exam Vital signs and Labs for Last 24 Hours: Temp Pulse Resp BP Pulse Ox 97.7 F 78 18 162/97 H 97 12/27/18 11:39 12/27/18 11:39 12/27/18 11:39 12/27/18 12:48 12/27/18 11:39 Laboratory Results - last 24 hr 12/26/18 14:12: Troponin I < 0.02 12/26/18 16:25: POC Glucose 181 H 12/26/18 20:20: POC Glucose 162 H 12/26/18 20:22: Troponin I < 0.02 12/27/18 06:20: POC Glucose 133 H 12/27/18 06:37: WBC 11.8 H, RBC 5.71, Hgb 16.6, Hct 49.8, MCV 87.1, MCH 29.1, MCHC 33.4, RDW 14.0, Plt Count 210, MPV 8.1, Neut % (Auto) 63.2, Lymph % (Auto) 28.6, [place] % (Auto) 5.7, Eos % (Auto) 1.8, Baso % (Auto) 0.8, Neut # (Auto) 7.5, Lymph # (Auto) 3.4, [place] # (Auto) 0.7, Eos # (Auto) 0.2, Baso # (Auto) 0.1 12/27/18 06:37: Sodium 138, Potassium 4.2, Chloride 100, Carbon Dioxide 28, Anion Gap 14.2, BUN 20 H D, Creatinine 1.03, Estimated Creat Clear 159, Estimated GFR 79, Est GFR ( Amer) 96, Glucose 135 H D, Calcium 9.2, Total Bilirubin 0.3, AST 17, ALT 43, Alkaline Phosphatase 80, Total Protein 7.4, Albumin 3.9, Globulin 3.5 H, Albumin/Globulin Ratio 1.1, Triglycerides 337 H, Cholesterol 164, LDL Cholesterol 62, VLDL Cholesterol 67 H, HDL Cholesterol 35, Cholesterol/HDL Ratio 4.7 H 12/27/18 11:19: POC Glucose 114 H I & O for Last 24 hours: Intake & Output 12/25/18 12/26/18 12/27/18 12/28/18 11:59 11:59 11:59 11:59 Intake Total 480 / 480 0 / 0 Balance 480 / 480 0 / 0 Weight 265 lb 265 lb - *Routine HEENT Exam Head: Present: normocephalic Eye: Present: EOMI, PERRL ENT: Present: mucous membranes moist - *Routine Respiratory Exam Present: CTA bilaterally. Absent: accessory muscle use, rales, rhonchi, wheezes - *Routine Cardiovascular Exam Present: RRR. Absent: murmur, gallop, rubs - *Routine Extremities Exam Absent: edema, calf tenderness - *Routine Neurological Exam Present: alert, oriented X3, moving all extremities Progress Note: A&P (1) Chest pain Status: Resolved Current Visit: Yes (2) Hypertensive urgency Status: Resolved Current Visit: No (3) Morbid obesity with BMI of 40.0-44.9, adult Status: Chronic Current Visit: No (4) Tobacco abuse disorder Status: Chronic Current Visit: No Assessment and Plan for All Diagnoses:: 1. Patient is stable from a cardiac standpoint to be discharged home. 2. Discharge medication recommendations; Metoprolol tartrate 75 mg twice daily Losartan 50 milligrams twice daily HCTZ 12.5 mg daily 3. See the patient back in 1 to 2 weeks for follow-up
--- NOTE | 2018-12-28 15:04 | Cardiology Report ---
APPROVED REPORT Exam: Pharmacologic Technologist: Aleyda Batista Ht: 5 ft 8 in Wt: 265 lbs BSA: 2.30 m2 HR: 71 bpm BP: 140/99 mmHg Indications: Chest pain Medical History Medications: Metoprolol,,,,, Losartan,,,,, Pantoprazole,,,,, HCTZ,,,,, Stress Test Details Test: LEXISCAN HR Resting HR: 76 bpmMax Heart Rate (APMHR): 178 bpm Max HR Achieved: 101 bpmTarget HR (85% APMHR): 151 bpm % of APMHR: 56 Recovery HR: 83 bpm BP Resting BP: 140.0/99.0 mmHg Max BP: 158.0/85.0 mmHg Recovery BP: 151.0/87.0 mmHg ECG Clinical Exercise duration: 04:02 min Highest Stage Achieved: Exercise capacity: 1.0 METs Stress ECG Conclusion Resting ECG: Normal sinus rhythm, right axis deviation, ST-T abnormalities inferiorly and laterally - possible strain pattern. Symptoms: Shortness of air, nausea, weakness, mild heart rate. No chest pain. Arrhythmias/Ectopy: None ST-T Changes: Exaggeration of baseline ST-T abnormalities. Conclusion: Non-diagnostic Lexiscan stress. Myoview images reported separately. Electronically signed by : Montez Jarquin, 12/28/2018 15:04:04
--- NOTE | 2018-12-30 07:41 | Cardiology Report ---
APPROVED REPORT First Officer And Flight Instructor: Lucila Guy RVT Study Quality: Adequate Indications: HTN urgency Risk Factors Hypertension Obesity Smoking Renal Artery Doppler Mid (R) 106.9/ cm/sec Distal (R) 175.1/ cm/sec Renal Aorta Ratio (R)1.49 Segmental A. (R) / cm/sec RI: 0.65 Segmental A. Sup (R) 42.9/15.0 cm/sec Segmental A. Mid (R) 33.5/11.7 cm/sec Segmental A. Inf (R) 52.1/18.9 cm/sec Mid (L) 120.4/ cm/sec Distal (L) 92.2/ cm/sec Renal Aorta Ratio (L)1.03 Segmental A. (L) / cm/sec RI: 0.73 Segmental A. Sup (L) 56.5/19.0 cm/sec Segmental A. Mid (L) 50.0/13.4 cm/sec Segmental A. Inf (L) 60.5/21.0 cm/sec Renal Measurements Kidney Size (R) 12.2x7.4 cm Cortical Thickness (R) 2.0 cm Kidney Size (L) 11.3x7.1 cm Cortical Thickness (L) 2.4 cm Findings No evidence of renal artery stenosis seen bilaterally. Proximal renal arteries were not visualized r/t patient body habitus. Conclusion No evidence of renal artery stenosis seen bilaterally. Proximal renal arteries were not visualized r/t patient body habitus. Electronically signed by : Norman Brown MD 12/30/2018 07:41:17
--- NOTE | 2019-01-02 13:31 | Cardiology Report ---
[facility] RADIOLOGICAL CONSULTATION Patient Name : MARGARET ALTAMIRANO X-RAY # : [id number] Physician: STALIN LAKE AGE: 43Y : 1975 00:00:00 ( M ) Exam : CA ECHO DOPPLER COMPLETE ACC # : [id number] Study Date : 12/26/2018 15:53:33 Patient Class : I FINAL REPORT CLINICAL DATA: FINDINGS: TRANSCRIBED REPORT EXAM: Comprehensive 2D, Doppler, and color-flow Echocardiogram Senior Test Engineer: Maylin Andrade CRT Ht: 5 ft 8 in Wt: 265lbs BSA: 2.30 BP: 182/108 mmHg Indications: CP, HTN CRISIS, CP, SMOKER, SOB, OBESITY 2D Dimensions IVSd 2.30 cm LVEF (Visual) 50.00 % PWd 1.20 cm LVDd 4.00 cm LVDs 3.00 cm LVOT 2.10 cm (M/F) 1.5-2.5 M-Mode Dimensions LA Diam 3.10 cm (1.9-4.0)Ao Diam 3.50 cm (2.0-3.7) AV Cusp 2.10 cm (1.5-2.6) LV Diastology E/A Ratio 1.00MED E' 5.07 (< 7 cm/sec) E'/MED E' Ratio16.40 (>14)LAT E' 4.87 (<10 cm/sec) E/LAT E' Ratio 17.00 (>14) Aortic Valve AoV Peak Gordon. 183.00 (50-130 cm/s)AO Peak GR. 13.00 mmHg Mitral Valve MV E Max Gordon. 82.90 (40-130 cm/s)MV A Velocity 81.90 (40-130 cm/s) E/A Ratio 1.00 Pulmonary Valve IA End VMAX 111.00 cm/s PA Accel Time 218.00 (>120 msec) Tricuspid Valve TR P. [id number] cm/sRAP Estimate 10.00 mmHg RVSP 35.00 mmHg Electronically signed by : IMPRESSION: Dictated by at Transcribed by at
== END 2018-12-27 14:08 | disposition home or self-care (01) ==
LOC: ER 09:06 → 2ND 09:06
PROVIDERS: ADMIT Internal Medicine Adolescent Medicine; ATTEND Internal Medicine Adolescent Medicine
DX: E11.9 Type 2 diabetes mellitus without complications; E78.5 Hyperlipidemia, unspecified; I16.0 Hypertensive urgency; Z72.0 Tobacco use; R07.9 Chest pain, unspecified; Z79.899 Other long term (current) drug therapy; E66.01 Morbid (severe) obesity due to excess calories
CPT/HCPCS: 36415; 71020; 71046; 78452; 80048; 80053; 80061; 82962; 84484; 85025; 85378; 93005; 93017; 93306; 93976; 96374; 99284; A9502; G0378; J2785

== ENCOUNTER 2019-07-26 08:30 | Emergency (ER) | payer BC, SELFPAY ==
--- NOTE | 2019-07-26 | ECG_ITS ---
APPROVED REPORT Exam: Resting ECG HR:80 bpm ECG Measurements Heart Rate 80 AXES SD 156 P 43 QRSd 98 QRS 18 QT 362 T 30 QTc 417 <Conclusion> Normal sinus rhythm Normal ECG Electronically signed by : Tyron Simon, 07/27/2019 21:41:28
[2019-07-26 08:32] VITALS: BP 209/118; PULSE 98; RESP 22; TEMP 37.1; O2SAT 87; BMI 45.0
[2019-07-26 08:36] VITALS: O2SAT 97
[2019-07-26 08:43] VITALS: BMI 45.1
--- NOTE | 2019-07-26 08:55 | CT_ITS ---
PROCEDURE: CT CHEST WO CON CLINICAL INDICATION: soa Shortness of air COMPARISON: No exams were available for comparison TECHNIQUE: Axial images obtained with sagittal and coronal reformats. All CT scans at the facility use one or more dose reduction, viz: automated exposure control, ma/kV adjustment per patient size (including targeted exams where dose is matched to indication, i.e. head), or iterative reconstruction technique. FINDINGS: HEART AND MEDIASTINAL STRUCTURES: No mediastinal or hilar mass. There are few small mediastinal lymph nodes. Coronary artery calcifications are present. No evidence of aortic aneurysm LUNGS AND PLEURAL SPACES: There is some faint perihilar ground-glass attenuation of both lungs nonspecific. There is a 4 mm noncalcified nodule in the left upper lobe image 33 series 3. No lobar consolidation. No effusions. Central airways are clear. BONY STRUCTURES: Degenerative changes are present in the lower thoracic spine UPPER ABDOMEN: Unremarkable. ADDITIONAL FINDINGS: . IMPRESSION: There is some faint perihilar ground-glass attenuation. This is a nonspecific finding and could be seen with pulmonary edema, interstitial lung disease, or pneumonitis. No lobar consolidation or collapse. No effusions Coronary artery calcifications 4 mm left upper lobe nodule. Nonspecific suggest 12 month follow-up Dictated by: Norman Brown MD 07/26/2019 09:46 Electronically signed by Norman Brown MD in [place] 07/26/2019 09:46
[2019-07-26 08:58] LABS: Basophils # 0.3 K/mm3 (0-0.2); Basophils % 2.4 % (0.1-2.0); Chloride 97 mmol/L (98-107); Eosinophils # 0.3 K/mm3 (0.0-0.4); Eosinophils % 1.9 % (0.1-12.0); Hematocrit 55.2 % (42.0-52.0); Hemoglobin 17.6 g/dL (14.1-18.0); Lymphocytes % 36.4 % (10-50); Mean Corpuscular HGB Conc 31.8 g/dL (31.8-35.4); Mean Corpuscular Hemoglobin 28.4 pg (27.0-31.2); Mean Corpuscular Volume 89.4 fl (80-94); Mean Platelet Volume 7.3 fl (7.4-10.4); Monocytes # 0.8 K/mm3 (0.1-1.0); Monocytes % 5.5 % (1.7-9.3); Neutrophils # 7.4 K/mm3 (1.8-7.8); Neutrophils % 53.9 % (37.0-80.0); Platelet Count 258 K/mm3 (142-424); Red Blood Count 6.18 M/mm3 (4.60-6.20); Red Cell Distribution Width 14.5 % (11.5-17.5); Sodium 136 mmol/L (136-145); White Blood Count 13.8 K/mm3 (4.8-10.8)
--- NOTE | 2019-07-26 09:00 | PC.NURSE ---
pt awake, alert after narcan. pt c/o nausea states I'm not feeling right pt diaphoretic.
[2019-07-26 09:01] LABS: Blood Urea Nitrogen 17 mg/dl (9-20); Carbon Dioxide 32 mmol/L (22.0-30.0); Creatinine Clearance Estimated 87 mL/min (50-200); Estimated Glomerular Filt Rate 82 ml/min (>60); GFR (African American) 99 ML/MIN (>60); Glucose 175 mg/dl (74-100)
[2019-07-26 09:02] VITALS: O2SAT 99
[2019-07-26 09:02] LABS: Calcium 9.5 mg/dl (8.4-10.2)
[2019-07-26 09:05] LABS: Lactic Acid 1.7 mmol/L (0.7-2.1)
--- NOTE | 2019-07-26 09:17 | PC.NURSE ---
pt states feeling some improvement
[2019-07-26 09:18] LABS: Troponin I < 0.01 ng/ml (0.00-0.034)
[2019-07-26 09:19] LABS: ABG Base Excess 1.8 mmol/L (-2.4-2.3); ABG HCO3 26.9 mmhg (22.0-26.0); ABG Oxygen Saturation 95 % (90-100); ABG PCO2 45.8 mmhg (35.0-45.0); ABG PH 7.39 mmol/L (7.35-7.45); ABG PO2 70.6 mmhg (80-100); ABG TCO2 28.3 mmhg (23-27)
[2019-07-26 09:22] LABS: Allen's Test ACCEPTABLE; Oxygen RA %; Source Right Radial
[2019-07-26 09:30] VITALS: BP 179/115; PULSE 89
--- NOTE | 2019-07-26 09:43 | PC.NURSE ---
pt states he has been buying percocet from other people. states I only take maybe 3-4 tablets aday states he has been hiding it from his family and just told his about it today
--- NOTE | 2019-07-26 09:51 | HMH.EDSOB ---
ED Disposition Clinical Impression: Acute exacerbation of chronic obstructive airways disease, Intoxication by drug Disposition: Home, Self-Care Condition on Discharge: Good Instructions: DI for Chronic Obstructive Pulmonary Disease Prescriptions: Azithromycin 250 mg PO DAILY 5 Days #6 tab Transmission Status: Pending to [id number] methylPREDNISolone [Medrol 4mg tab] 4 mg PO DIRECTED #21 tab Transmission Status: Pending to [id number] Referrals: Tyron Simon MD [Primary Care Provider] - - Critical Care Critical Care Time: No Attestation: On 07/26/19, the high probability of a clinically significant, sudden or life threatening deterioration of the following system(s) required my full and direct attention, intervention and personal management. The time I documented below is in addition to time spent performing reported procedures but includes the following listed in this critical care notation. Medical Decision Making - Medical Records Medical records reviewed: Yes: I reviewed the patient's medical records. - Ananda Inquiry Pt receiving controlled substance: No Vital Signs: 07/26/19 08:32 07/26/19 08:36 07/26/19 09:02 Temperature 98.8 F Temperature Source Oral Pulse Rate [Radial] 98 H Respiratory Rate 22 Blood Pressure [Right Arm] 209/118 H Blood Pressure Mean [Right Arm] 148 Blood Pressure Source [Right Arm] Automatic Cuff Blood Pressure Position [Right Arm] Sitting 02 Sat by Pulse Oximetry 87 L 97 99 Oxygen Delivery Method Room Air Nasal Cannula Room Air Oxygen Flow Rate (LPM) 3 07/26/19 09:30 Temperature Temperature Source Pulse Rate [Radial] 89 Respiratory Rate Blood Pressure [Right Arm] 179/115 H Blood Pressure Mean [Right Arm] 136 Blood Pressure Source [Right Arm] Blood Pressure Position [Right Arm] Sitting 02 Sat by Pulse Oximetry Oxygen Delivery Method Oxygen Flow Rate (LPM) - Lab Data Lab results reviewed: Yes: I reviewed the patient's lab results. Lab Results 07/26/19 08:40: WBC 13.8 H, RBC 6.18, Hgb 17.6, Hct 55.2 H, MCV 89.4, MCH 28.4, MCHC 31.8, RDW 14.5, Plt Count 258, MPV 7.3 L, Neut % (Auto) 53.9, Lymph % (Auto) 36.4, [place] % (Auto) 5.5, Eos % (Auto) 1.9, Baso % (Auto) 2.4 H, Neut # (Auto) 7.4, Lymph # (Auto) 5.0 H, [place] # (Auto) 0.8, Eos # (Auto) 0.3, Baso # (Auto) 0.3 H 07/26/19 08:40: Sodium 136, Potassium 4.0, Chloride 97 L, Carbon Dioxide 32 H, Anion Gap 11.0, BUN 17, Creatinine 1.00, Estimated Creat Clear 87, Estimated GFR 82, Est GFR ( Amer) 99, Glucose 175 H, Calcium 9.5, Troponin I < 0.01 07/26/19 08:40: Lactate 1.7 07/26/19 08:46: Specimen Source Right radial, O2 % Ra, ABG pH 7.39, ABG pCO2 45.8 H, ABG pO2 70.6 L, ABG HCO3 26.9 H, ABG Total CO2 28.3 H, ABG O2 Saturation 95, ABG Base Excess 1.8, Norman Test Acceptable Result diagrams: 07/26/19 08:40 07/26/19 08:40 Orders (Tests/Meds): ED MEDICATIONS Discontinued Medications Generic Name Dose Route Start Last Admin Trade Name Freq PRN Reason Stop Dose Admin Albuterol Sulfate 8 puffs 07/26/19 08:47 07/26/19 08:50 Proventil-Hfa 90mcg/Puff Inhaler IH 07/26/19 08:48 8 puffs ONCE ONE Administration Methylprednisolone Sodium Succinate 125 mg 07/26/19 08:45 07/26/19 08:50 Solu-Medrol 125mg/2ml Vial IM 07/26/19 08:46 Not Given ONCE ONE Methylprednisolone Sodium Succinate 125 mg 07/26/19 08:50 07/26/19 08:51 Solu-Medrol 125mg/2ml Vial IV 07/26/19 08:51 125 mg ONCE ONE Administration Miscellaneous 1 unit 07/26/19 08:46 07/26/19 08:50 Aerochamber/Optihaler MC 07/26/19 08:47 1 unit ONCE ONE Administration Naloxone HCl 2 mg 07/26/19 09:03 07/26/19 08:55 Narcan 2mg/2ml Syringe IV 07/26/19 09:04 2 mg ONCE ONE Administration Ondansetron HCl 4 mg 07/26/19 09:03 07/26/19 09:08 Zofran 4mg/2ml Vial IV 07/26/19 09:04 4 mg ONCE ONE Administration Ondansetron HCl 4 mg 07/26/19 09:06 07/26/19 09
[2019-07-26 10:14] VITALS: BP 151/90; PULSE 78; RESP 20; TEMP 37.1; O2SAT 100
--- NOTE | 2019-07-28 | ECG_ITS ---
APPROVED REPORT Exam: Resting ECG HR:80 bpm ECG Measurements Heart Rate 80 AXES MT 156 P 43 QRSd 98 QRS 18 QT 362 T 30 QTc 417 <Conclusion> Normal sinus rhythm Normal ECG Electronically signed by : Tyron Simon, 07/27/2019 21:41:28
== END 2019-07-26 10:16 | disposition home or self-care (01) ==
PROVIDERS: Emergency Provider Family Medicine; PCP Internal Medicine Adolescent Medicine
DX: J44.1 Chronic obstructive pulmonary disease with (acute) exacerbation (principal); F19.929 Other psychoactive substance use, unspecified with intoxication, unspecified; F17.210 Nicotine dependence, cigarettes, uncomplicated; I10 Essential (primary) hypertension
CPT/HCPCS: 71250; 80048; 82803; 83605; 84484; 85025; 87040; 93005; 96374; 96375; 96376; 99284; J2310; J2405

== ENCOUNTER 2019-07-26 18:18 | Emergency (ER) | payer BC, SELFPAY ==
--- NOTE | 2019-07-26 08:42 | ECG_ITS ---
APPROVED REPORT Exam: Resting ECG HR:80 bpm ECG Measurements Heart Rate 80 AXES OH 156 P 43 QRSd 98 QRS 18 QT 362 T 30 QTc 417 <Conclusion> Normal sinus rhythm Normal ECG Electronically signed by : Tyron Simon, 07/27/2019 21:41:28
[2019-07-26 18:21] VITALS: BMI 38.0
--- NOTE | 2019-07-26 18:30 | PC.NURSE ---
pt awake alert after giving narcan. pt c/o nausea. pt vomiting.md aware
[2019-07-26 18:34] VITALS: BP 150/91; PULSE 94; RESP 6; TEMP 36.6; O2SAT 86; BMI 39.5
--- NOTE | 2019-07-26 18:46 | HMH.EDOD ---
ED Disposition Clinical Impression: Drug overdose, Obesity (BMI 30.0-34.9), Non-compliance Disposition: Home, Self-Care Condition on Discharge: Good Instructions: DI for Drug Overdose in Children, DI for Drug Overdose in Adults Referrals: Tyron Simon MD [Primary Care Provider] - - Critical Care Critical Care Time: No Attestation: On 07/26/19, the high probability of a clinically significant, sudden or life threatening deterioration of the following system(s) required my full and direct attention, intervention and personal management. The time I documented below is in addition to time spent performing reported procedures but includes the following listed in this critical care notation. Medical Decision Making - Medical Records Medical records reviewed: Yes: I reviewed the patient's medical records. - Ananda Inquiry Pt receiving controlled substance: No Vital Signs: 07/26/19 18:34 Temperature 98 F Temperature Source Oral Pulse Rate [Left Radial] 94 H Respiratory Rate 6 L Blood Pressure [Right Arm] 150/91 H Blood Pressure Mean [Right Arm] 110 Blood Pressure Position [Right Arm] Sitting 02 Sat by Pulse Oximetry 86 L Oxygen Delivery Method Room Air - Lab Data Lab results reviewed: Yes: I reviewed the patient's lab results. Orders (Tests/Meds): ED MEDICATIONS Generic Name Dose Route Start Last Admin Trade Name Freq PRN Reason Stop Dose Admin Naloxone HCl 4 mg 07/26/19 18:45 Narcan 2mg/2ml Syringe IV 07/26/19 18:46 ONCE ONE ORDERS Category Date Time Status SARS-CoV-2, [place] Stat Lab 07/26/19 18:21 Ordered Overdose HPI - General Chief Complaint: Overdose Stated Complaint: Vomiting,SOB Time Seen by Provider: 07/26/19 18:46 Mode of Arrival: Ambulatory Limitations: No Limitations Description of Symptoms (Recalled from ER Triage Doc. by RN): to ed per pvt car pt seen earlier today due to narcotic OD. pt returns with same symptoms, sob, drowsey, states his ears and lips were blue at home and he was difficult to arouse. pt denies using any more medication when he returned home. pt drowsey - History of Present Illness HPI Narrative: 3-year-old male presents back to the emergency department after being seen here earlier today for an opiate overdose. Patient told me earlier today that he took a 10 mg Percocet but now he told me that they were 30 mg oxycodone extended release and took 3. Here in the ED he was somewhat suppressed but after 2 mg of Narcan he was back to baseline and having nausea and vomiting and sats were good and we he was cleared for discharge he presents back with some mild respiratory suppression his sats are 90% on room air he was given 4 mg of Narcan IV and his sats are now at 98% on room air and he is actively vomiting. - Related Data Home Medications Medication Instructions Recorded Confirmed Pantoprazole Sodium [Protonix 40mg 40 mg PO BID 12/26/18 07/26/19 tablet] Famotidine [Pepcid 20mg Tablet] 20 mg PO BID 07/26/19 07/26/19 Ibuprofen [Ibuprofen 600mg 600 mg PO Q6H 07/26/19 07/26/19 Tablet] Losartan Potassium [Cozaar 50mg 50 mg PO DAILY 07/26/19 07/26/19 Tablets] Metoprolol Tartrate 50 mg PO BID 07/26/19 07/26/19 Metoprolol Tartrate 75 mg PO BID 07/26/19 07/26/19 Previous Rx's Medication Instructions Recorded Losartan Potassium 50 mg PO BID #0 12/27/18 Acetaminophen 1,000 mg PO TID PRN #60 tab 04/30/19 hydrochlorothiazide 12.5 mg capsule 12.5 mg PO DAILY #90 cap 06/27/19 Azithromycin 250 mg PO DAILY 5 Days #6 tab 07/26/19 methylPREDNISolone [Medrol 4mg 4 mg PO DIRECTED #21 tab 07/26/19 tab] Allergies Allergy/AdvReac Type Severity Reaction Status Date / Time No Known Allergies Allergy Verified 11/10/18 08:28 [facility] History - Hepatitis A Screen Drug use history?: No High risk sexual behaviors?: No History of sexually transmitted infection?: No Currently employed?: No Childcare worker?: N
[2019-07-26 19:00] VITALS: BP 150/91; PULSE 94; RESP 16; TEMP 36.6; O2SAT 98
[2019-07-29 07:47] LABS: Covid-19 Nasal PCR Sendout Lex Not Detected
--- NOTE | 2019-07-29 12:30 | PC.NURSE ---
attempted to call results of covid -19 test. voicemail box/name not available to leave message
--- NOTE | 2019-07-30 12:27 | PC.NURSE ---
attempted to notify pt of negative covid test. no answer/no name on voicemail
== END 2019-07-26 19:04 | disposition home or self-care (01) ==
PROVIDERS: Emergency Provider Family Medicine; PCP Internal Medicine Adolescent Medicine
DX: T40.2X1A Poisoning by other opioids, accidental (unintentional), initial encounter (principal); E66.9 Obesity, unspecified; Z68.39 Body mass index [BMI] 39.0-39.9, adult; I10 Essential (primary) hypertension; F17.210 Nicotine dependence, cigarettes, uncomplicated
CPT/HCPCS: 93005; 96374; 96375; 99281; J2310; J2405; U0004

== ENCOUNTER 2020-10-07 18:58 | Observation (INO) | payer BC, SELFPAY ==
[2020-10-07 19:10] VITALS: BP 180/90; PULSE 85; RESP 18; TEMP 36.6; O2SAT 98; BMI 41.3
--- NOTE | 2020-10-07 19:30 | CT_ITS ---
PROCEDURE INFORMATION: Exam: CT Cervical Spine Without Contrast Exam date and time: 10/07/2020 7:30 PM Age: 45 years old Clinical indication: Numbness; Patient HX: Blurred vision; Additional info: Bilat finger numbness TECHNIQUE: Imaging protocol: Computed tomography images of the cervical spine without contrast. Radiation optimization: All CT scans at this facility use at least one of these dose optimization techniques: automated exposure control; mA and/or kV adjustment per patient size (includes targeted exams where dose is matched to clinical indication); or iterative reconstruction. COMPARISON: CT CHEST WO CON 07/26/2019 9:19 AM FINDINGS: Bones/joints: No acute fracture. Discs/Spinal canal/Neural foramina: Examination is limited by body habitus. No severe spinal canal stenosis. Lungs: Lung apices are normal. Soft tissues: No soft tissue swelling. IMPRESSION: No definite acute findings. If there is ongoing concern or neurologic symptoms, MRI is recommended for further evaluation.
--- NOTE | 2020-10-07 19:30 | CT_ITS ---
PROCEDURE INFORMATION: Exam: CT Head Without Contrast Exam date and time: 10/07/2020 7:30 PM Age: 45 years old Clinical indication: Numbness / parasthesia and other: Blurred vision; Additional info: Bilat finger numbness TECHNIQUE: Imaging protocol: Computed tomography of the head without contrast. Radiation optimization: All CT scans at this facility use at least one of these dose optimization techniques: automated exposure control; mA and/or kV adjustment per patient size (includes targeted exams where dose is matched to clinical indication); or iterative reconstruction. COMPARISON: No relevant prior studies available. FINDINGS: Brain: No large territorial infarction. No hemorrhage. No mass effect or midline shift. Cerebral ventricles: No ventriculomegaly. Paranasal sinuses: Partial opacification of the left posterior ethmoid air cells. Mastoid air cells: Visualized mastoid air cells are well aerated. Bones/joints: No acute fracture. Soft tissues: No significant soft tissue abnormality. IMPRESSION: Mild paranasal sinus disease.
[2020-10-07 19:40] LABS: Microscopic, Urine URINE MICROSCOPIC (MICROSCOPIC)
[2020-10-07 19:42] LABS: Basophils # 0.1 K/mm3 (0-0.2); Basophils % 0.6 % (0.1-2.0); Eosinophils # 0.1 K/mm3 (0.0-0.4); Hematocrit 47.2 % (42.0-52.0); Lymphocytes % 20.8 % (10-50); Mean Corpuscular HGB Conc 33.9 g/dL (31.8-35.4); Mean Corpuscular Hemoglobin 27.5 pg (27.0-31.2); Mean Corpuscular Volume 81.1 fl (80-94); Mean Platelet Volume 8.7 fl (7.4-10.4); Monocytes # 0.4 K/mm3 (0.1-1.0); Neutrophils # 7.3 K/mm3 (1.8-7.8); Neutrophils % 73.6 % (37.0-80.0); Platelet Count 193 K/mm3 (142-424); Red Blood Count 5.82 M/mm3 (4.60-6.20); Red Cell Distribution Width 13.7 % (11.5-17.5); White Blood Count 9.9 K/mm3 (4.8-10.8)
[2020-10-07 19:48] LABS: Appearance,Urine CLEAR (Clear); Bilirubin,Urine Negative (Negative); Blood, Urine Negative (Negative); Color,Urine YELLOW (Yellow); Glucose,Urine (UA) 3+ (Negative); Ketones,Urine Negative (Negative); Leukocyte Esterase,Urine Negative (Negative); Nitrate,Urine Negative (Negative); Protein,Urine Negative (Negative); Specific Gravity, Urine <= 1.005 (1.005-1.030); Urobilinogen,Urine 0.2 EU/dl (0.2)
[2020-10-07 19:51] LABS: Alanine Aminotransferase 74 U/L (12-78); Albumin Level 4.4 g/dl (3.5-5.0); Albumin/Globulin Ratio 1.6 (1.1-1.8); Alkaline Phosphatase 187 U/L (38-126); Anion Gap 15.2 mEq/L (5-15); Aspartate Amino Transferase 40 U/L (17-59); Bilirubin,Total 1.1 mg/dl (0.2-1.3); Blood Urea Nitrogen 20 mg/dl (9-20); Calcium 9.2 mg/dl (8.4-10.2); Carbon Dioxide 32 mmol/L (22.0-30.0); Creatinine Clearance Estimated 76 mL/min (50-200); Estimated Glomerular Filt Rate 66 ml/min (>60); GFR (African American) 80 ML/MIN (>60); Globulin 2.7 g/dL (1.3-3.2); Potassium 3.2 mmoL/L (3.5-5.1); Sodium 120 mmol/L (136-145); Total Protein,Serum 7.1 g/dl (6.3-8.2)
[2020-10-07 20:00] VITALS: BP 168/96; PULSE 78; O2SAT 94
[2020-10-07 20:01] LABS: Amphetamine/Metha Screen,Urine Negative ng/ml (<1000); Barbiturates Screen,Urine Negative ng/ml (<200)
[2020-10-07 20:02] LABS: Benzodiazepines Screen,Urine Negative ng/ml (<200)
[2020-10-07 20:03] LABS: Cocaine Screen,Urine Negative ng/ml (<300)
[2020-10-07 20:04] LABS: Methadone Screen,Urine Negative ng/ml (<300)
[2020-10-07 20:05] LABS: Opiate Screen,Urine Negative ng/ml (<300); Phencyclidine Screen,Urine Negative ng/ml (<25)
--- NOTE | 2020-10-07 20:08 | HMH.EDGENADL ---
ED Disposition Condition on Discharge: Good - Critical Care Critical Care Time: No <CeasarKyleigh - Last Filed: 10/07/20 20:08> <Nicholas Perkins - Last Filed: 10/07/20 21:50> Clinical Impression: Diabetes mellitus Qualifiers: Diabetes mellitus type: type 2 Diabetes mellitus fpc insulin use: without fpc use Diabetes mellitus complication status: with other specified complication Qualified Code(s): E11.69 - Type 2 diabetes mellitus with other specified complication Disposition: Still a Patient Attestation: On 10/07/20, the high probability of a clinically significant, sudden or life threatening deterioration of the following system(s) required my full and direct attention, intervention and personal management. The time I documented below is in addition to time spent performing reported procedures but includes the following listed in this critical care notation. Medical Decision Making - Medical Records Medical records reviewed: Yes: I reviewed the patient's medical records. - Ananda Inquiry Pt receiving controlled substance: No - Lab Data Result diagrams: 10/07/20 19:25 <CeasarKyleigh - Last Filed: 10/07/20 20:08> - Lab Data Result diagrams: 10/07/20 19:25 10/07/20 19:25 - CT Data CT Scan: Head, C-Spine Time Received: 20:[address] Reviewed: Yes: I have viewed the radiologist's interpretation - Physician Consults Physician Consulted: Jose Time: 21:00 Reason -: Admission Comment/Response: Agrees to admit the patient to the hospital. We discussed the patient's clinical information, including history, exam, laboratory and radiology results and ED course. Per hospital procedure, I will write temporary bridge inpatient orders on the patient. Specific orders requested by the admitting physician: Continue IV fluids. High intensity sliding scale insulin. Lantus 10 units at at bedtime. <Nicholas Perkins - Last Filed: 10/07/20 21:50> Vital Signs: 10/07/20 19:10 10/07/20 20:00 Temperature 97.8 F Temperature Source Oral Pulse Rate 78 Pulse Rate [Right Brachial] 85 Respiratory Rate 18 Blood Pressure 168/96 H Blood Pressure [Right Arm] 180/90 H Blood Pressure Mean [Right Arm] 120 Blood Pressure Source [Right Arm] Manual Cuff/ Auscultation 02 Sat by Pulse Oximetry 98 94 L Oxygen Delivery Method Room Air - Lab Data Lab Results 10/07/20 19:25: WBC 9.9, RBC 5.82, Hgb 16.0, Hct 47.2, MCV 81.1, MCH 27.5, MCHC 33.9, RDW 13.7, Plt Count 193, MPV 8.7, Neut % (Auto) 73.6, Lymph % (Auto) 20.8, [place] % (Auto) 4.0, Eos % (Auto) 1.0, Baso % (Auto) 0.6, Neut # (Auto) 7.3, Lymph # (Auto) 2.0, [place] # (Auto) 0.4, Eos # (Auto) 0.1, Baso # (Auto) 0.1 10/07/20 19:25: Sodium 120 L, Potassium 3.2 L, Chloride 76 L, Carbon Dioxide 32 H, Anion Gap 15.2 H, BUN 20, Creatinine 1.20, Estimated Creat Clear 76, Estimated GFR 66, Est GFR ( Amer) 80, Glucose 917 H*, Calcium 9.2, Total Bilirubin 1.1, AST 40, ALT 74, Alkaline Phosphatase 187 H, Troponin I < 0.01, Total Protein 7.1, Albumin 4.4, Globulin 2.7, Albumin/Globulin Ratio 1.6 10/07/20 19:25: Urine Color Yellow, Urine Appearance Clear, Urine pH 6.0, Ur Specific [place] <= 1.005, Urine Protein Negative, Urine Glucose (UA) 3+, Urine Ketones Negative, Urine Blood Negative, Urine Nitrate Negative, Urine Bilirubin Negative, Urine Urobilinogen 0.2, Ur Leukocyte Esterase Negative, Urine WBC Occasional, Urine Bacteria Trace 10/07/20 19:25: Urine Opiates Screen Negative, Urine Methadone Screen Negative, Ur Barbituates Screen Negative, Ur Phencyclidine Scrn Negative, Ur Amphetamines Screen Negative, U Benzodiazepines Scrn Negative, Urine Cocaine Screen Negative, U Marijuana (THC) Screen Negative 10/07/20 19:25: Hemoglobin A1c 12.6 H 10/07/20 19:25: Acetone Level None detected 10/07/20 20:20: VBG pH 7.34, VBG pCO2 56.7 H, VBG pO2 43.5 H, VBG HCO3 29.8, VBG Total CO2 31.5 H, VBG O2 Saturation 77.8 H, VBG Base Excess 4.0 H Orders (Tests/Meds): ED MEDICATIONS Gen
[2020-10-07 20:12] LABS: Chloride 76 mmol/L (98-107); Troponin I < 0.01 ng/ml (0.00-0.034)
[2020-10-07 20:14] LABS: Bacteria,Urine Trace /lpf; WBC,Urine Occasional #/hpf (0-3)
[2020-10-07 20:15] LABS: Cannabinoid Screen,Urine Negative ng/ml (<50)
[2020-10-07 20:17] LABS: Glucose 917 mg/dl (74-100)
[2020-10-07 20:29] LABS: Acetone, Serum (Rapid) None Detected (None Detect)
[2020-10-07 20:32] LABS: VBG HCO3 29.8 mmol/L (23-30); VBG Oxygen Saturation 77.8 % (50-70); VBG PCO2 56.7 mmol/L (35-51); VBG PH 7.34 mmol/L (7.31-7.41); VBG PO2 43.5 mmol/L (28-40); VBG Total CO2 31.5 mmol/L (23-27)
[2020-10-07 20:35] LABS: Hemoglobin A1C 12.6 % (4.0-6.0)
[2020-10-07 22:04] LABS: Coronavirus 19, PCR Not Detected (NotDetected); Influenza A, PCR Not Detected (NotDetected); Influenza B, PCR Not Detected (NotDetected)
[2020-10-07 22:32] LABS: Glucose,Random 737 mg/dL (74-100)
[2020-10-07 22:43] VITALS: BP 152/95; PULSE 75; RESP 18; TEMP 36.8; O2SAT 98
[2020-10-07 23:47] VITALS: BMI 39.1
[2020-10-08] VITALS: BP 150/98; PULSE 80; RESP 17; TEMP 36.6; O2SAT 96
--- NOTE | 2020-10-08 03:46 | PC.NURSE ---
Patient is a new admit this shift. He is alert and oriented x4. Patient ambulates independently with no problems. Lung sounds clear. Patient states last BM was on 10/07/20. There is a urinal at bedside. Patient is on room air. IV access is a 20 gauge in the LAC with NS infusing at 100 ml/hr. Vital signs are stable, call light within reach, will continue to monitor.
[2020-10-08 04:00] VITALS: BP 146/89; PULSE 78; RESP 15; TEMP 36.6; O2SAT 96
[2020-10-08 05:20] LABS: POC Glucose,Bedside 503 (70-110)
[2020-10-08 05:53] LABS: Chloride 86 mmol/L (98-107); Potassium 3.2 mmoL/L (3.5-5.1); Sodium 130 mmol/L (136-145)
[2020-10-08 05:56] LABS: Anion Gap 15.2 mEq/L (5-15); Blood Urea Nitrogen 23 mg/dl (9-20); Carbon Dioxide 32 mmol/L (22.0-30.0); Creatinine Clearance Estimated 156 mL/min (50-200); Estimated Glomerular Filt Rate 81 ml/min (>60); GFR (African American) 98 ML/MIN (>60)
[2020-10-08 05:57] LABS: Calcium 9.5 mg/dl (8.4-10.2)
[2020-10-08 06:01] LABS: Glucose 508 mg/dl (74-100)
--- NOTE | 2020-10-08 06:26 | PC.NURSE ---
notified by michelle in lab of critical glucose 508 @0601 name, , and rom verified
[2020-10-08 07:59] VITALS: BP 158/103; PULSE 83; RESP 18; TEMP 36.6; O2SAT 96
--- NOTE | 2020-10-08 07:59 | P.CONPHA_ITS ---
[facility] Pharmacy VTE Monitoring - Patient Demographics Admission date: 10/07/20 Report Date: 10/08/20 Time: 07:59 Allergies/Adverse Reactions: Patient Allergies No Known Allergies Allergy (Verified 01/15/20 12:13) Height: 1.73 m Weight: 116.658 kg Patient Problems: Current Active Problems Diabetes mellitus (Acute) - VTE Risk Labs: VTE Related Lab Results Hgb 16.0 g/dL (14.1-18.0) 10/07/20 19:25 Hct 47.2 % (42.0-52.0) 10/07/20 19:25 Plt Count 193 K/mm3 (142-424) 10/07/20 19:25 BUN 23 mg/dl (9-20) H 10/08/20 05:30 Creatinine 1.00 mg/dl (0.66-1.25) 10/08/20 05:30 Estimated Creat Clear 156 mL/min (50-200) 10/08/20 05:30 VTE Score: 2 VTE Risk Level: Very Low Risk - Prophylaxis VTE Prophylaxis Ordered?: Yes Types of VTE Prophylaxis: TEDS Knee High Location of Applied Device: Bilateral Lower Extremeties
--- NOTE | 2020-10-08 07:59 | HMH.PHAINT ---
MEDICATION RECONCILIATION COMPLETED ON PATIENT USING EXTERNAL FILL HISTORY FROM PHARMACY AND NETO REPORT. -ONDINA LAZAROD
[2020-10-08 08:00] VITALS: PULSE 83; O2SAT 96
--- NOTE | 2020-10-08 09:16 | HMH.HP ---
*Admission Date: 10/07/20 *Chief complaint: Visual changes *History of present illness: Mr. Singer is a 45-year-old male patient with history of hypertension and previous drug addiction on Suboxone at present presented to [facility] emergency room after experiencing aggressive vision changes over the last 2 weeks. He said it actually was worse the last couple of days. He notes that he has is had his blood sugar checked regularly at home and it had always been satisfactory. 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 He states he went to [place] on vacation for 2 days at which time his vision became worse and progressively became more blurred. He did not feel well yesterday and this along with the visual changes who presented to the emergency room. From ER documentation Description of Symptoms (Recalled from ER Triage Doc. by RN): pt presents with complaints of having blurry vision different from baseline during last two weeks. stated he was just gonna let it go , however tonight when he got out of the shower he noticed he had difficulty turning his wrist to put his deodorant on. identifies numbness to 4th/5th digits bilateral hands. pt ambulates easily. no other alteration in sensation. denies injury to spine or head. denies previous knowledge of injury to spine or head. verbal, clear speech. no acute respiratory difficulty, no confusion evident. NIH at present 0. CT of the head/brain IMPRESSION: Mild paranasal sinus disease. CT of cervical spine IMPRESSION: No definite acute findings. If there is ongoing concern or neurologic 10/07/20 19:25: WBC 9.9, RBC 5.82, Hgb 16.0, Hct 47.2, MCV 81.1, MCH 27.5, MCHC 33.9, RDW 13.7, Plt Count 193, MPV 8.7, Neut % (Auto) 73.6, Lymph % (Auto) 20.8, [place] % (Auto) 4.0, Eos % (Auto) 1.0, Baso % (Auto) 0.6, Neut # (Auto) 7.3, Lymph # (Auto) 2.0, [place] # (Auto) 0.4, Eos # (Auto) 0.1, Baso # (Auto) 0.1 10/07/20 19:25: Sodium 120 L, Potassium 3.2 L, Chloride 76 L, Carbon Dioxide 32 H, Anion Gap 15.2 H, BUN 20, Creatinine 1.20, Estimated Creat Clear 76, Estimated GFR 66, Est GFR ( Amer) 80, Glucose 917 H*, Calcium 9.2, Total Bilirubin 1.1, AST 40, ALT 74, Alkaline Phosphatase 187 H, Troponin I < 0.01, Total Protein 7.1, Albumin 4.4, Globulin 2.7, Albumin/Globulin Ratio 1.6 10/07/20 19:25: Urine Color Yellow, Urine Appearance Clear, Urine pH 6.0, Ur Specific [place] <= 1.005, Urine Protein Negative, Urine Glucose (UA) 3+, Urine Ketones Negative, Urine Blood Negative, Urine Nitrate Negative, Urine Bilirubin Negative, Urine Urobilinogen 0.2, Ur Leukocyte Esterase Negative, Urine WBC Occasional, Urine Bacteria Trace 10/07/20 19:25: Urine Opiates Screen Negative, Urine Methadone Screen Negative, Ur Barbituates Screen Negative, Ur Phencyclidine Scrn Negative, Ur Amphetamines Screen Negative, U Benzodiazepines Scrn Negative, Urine Cocaine Screen Negative, U Marijuana (THC) Screen Negative 10/07/20 19:25: Hemoglobin A1c 12.6 H 10/07/20 19:25: Acetone Level None detected 10/07/20 20:20: VBG pH 7.34, VBG pCO2 56.7 H, VBG pO2 43.5 H, VBG HCO3 29.8, VBG Total CO2 31.5 H, VBG O2 Saturation 77.8 H, VBG Base Excess 4.0 H This a.m. the patient does feel better. His blood sugars have been decreased after being given Lantus and is on sliding scale. His vision has improved. He is very anxious to go home. He denies chest pain and shortness of breath. He did eat breakfast and states he can eat anything. To note patient usually drinks a case of Pepsi a day.This a.m. sodium has improved to 130. Potassium is 3.2. Renal function shows a BUN of 23 and creatinine of 1. Blood sugar has decreased to 508. He sees cardiology here at [facility] and Dr. Burt is his family physician. He also goes to the Suboxone clinic for his Suboxone. [facility] History I have reviewed the patient's past medical history: Yes Medical History:
[2020-10-08 12:22] LABS: POC Glucose,Bedside 414 (70-110)
[2020-10-08 15:37] VITALS: BP 153/108; PULSE 62; RESP 16; TEMP 36.8; O2SAT 94
[2020-10-08 16:47] LABS: POC Glucose,Bedside 420 (70-110)
--- NOTE | 2020-10-08 18:06 | PC.NURSE ---
pt has rested in his room most of the shift, it is noted that when he is sleeping well that he is difficult to arouse. lungs remain clear, bowel sounds are active. pt fsbs has remained elevated along with bp. dr pate was made aware of both of the issues at approx 1720. new orders received. nad noted. will continue to monitor
[2020-10-08 18:42] LABS: Anion Gap 11.4 mEq/L (5-15); Blood Urea Nitrogen 18 mg/dl (9-20); Calcium 8.7 mg/dl (8.4-10.2); Carbon Dioxide 32 mmol/L (22.0-30.0); Chloride 90 mmol/L (98-107); Creatinine Clearance Estimated 194 mL/min (50-200); Estimated Glomerular Filt Rate 105 ml/min (>60); GFR (African American) 127 ML/MIN (>60); Glucose 351 mg/dl (74-100); Potassium 3.4 mmoL/L (3.5-5.1); Sodium 130 mmol/L (136-145)
[2020-10-08 20:00] VITALS: BP 118/84; PULSE 73; RESP 16; TEMP 36.6; O2SAT 95
[2020-10-08 21:01] LABS: POC Glucose,Bedside 328 (70-110)
[2020-10-09] VITALS: BP 129/74; PULSE 76; RESP 16; TEMP 36.7; O2SAT 96
--- NOTE | 2020-10-09 03:23 | PC.NURSE ---
Pt is A/O x4, no acute changes this shift. Pt rested well all night. Pt has been using urinal to void. Admin meds per MAR. Lungs are CTA. Bowel sounds present x4. Pt denies pain, N/V. Pt is able to make needs known to staff, call light within reach, VSS, will continue to monitor.
[2020-10-09 04:00] VITALS: BP 114/59; PULSE 69; RESP 16; TEMP 36.4; O2SAT 96
[2020-10-09 04:49] VITALS: BMI 39.8
[2020-10-09 05:59] LABS: POC Glucose,Bedside 290 (70-110)
[2020-10-09 06:43] LABS: Chloride 92 mmol/L (98-107); Potassium 3.1 mmoL/L (3.5-5.1); Sodium 131 mmol/L (136-145)
[2020-10-09 06:46] LABS: Anion Gap 10.1 mEq/L (5-15); Blood Urea Nitrogen 27 mg/dl (9-20); Calcium 8.3 mg/dl (8.4-10.2); Carbon Dioxide 32 mmol/L (22.0-30.0); Creatinine Clearance Estimated 177 mL/min (50-200); Estimated Glomerular Filt Rate 92 ml/min (>60); GFR (African American) 111 ML/MIN (>60); Glucose 282 mg/dl (74-100)
[2020-10-09 06:49] LABS: Basophils # 0.1 K/mm3 (0-0.2); Basophils % 0.5 % (0.1-2.0); Eosinophils # 0.2 K/mm3 (0.0-0.4); Eosinophils % 1.6 % (0.1-12.0); Hematocrit 41.7 % (42.0-52.0); Hemoglobin 14.5 g/dL (14.1-18.0); Lymphocytes # 2.9 K/mm3 (0.7-4.5); Mean Corpuscular HGB Conc 34.7 g/dL (31.8-35.4); Mean Corpuscular Hemoglobin 27.7 pg (27.0-31.2); Mean Platelet Volume 8.4 fl (7.4-10.4); Monocytes # 0.4 K/mm3 (0.1-1.0); Neutrophils # 6.5 K/mm3 (1.8-7.8); Neutrophils % 64.8 % (37.0-80.0); Platelet Count 172 K/mm3 (142-424); Red Blood Count 5.22 M/mm3 (4.60-6.20); Red Cell Distribution Width 14.1 % (11.5-17.5); White Blood Count 10.1 K/mm3 (4.8-10.8)
--- NOTE | 2020-10-09 07:59 | HMH.ACPN2 ---
Internal Medicine - PN: Subj *Date: 10/09/20 *Time: 08:05 Interval history: Overall patient is feeling much better. He slept well. He sleeps very soundly. He denies chest pain and shortness of breath. He is voiding QS. He states his vision is really improved and has an eye appointment tomorrow. His daughter who is a nursing manager has been reviewing his diet with him. He will stop drinking his regular Pepsi which he drank a case of daily. Blood sugars have gradually decreased. Blood pressure has greatly improved with addition of lisinopril. Laboratory data this morning reveals satisfactory CBC with blood chemistries showing a sodium of 131, potassium 3.1, BUN 27 and creatinine 0.9. A.m. blood sugar was 282. Exam Vital signs and Labs for Last 24 Hours: Temp Pulse Resp BP Pulse Ox 97.6 F 69 16 114/59 L 96 10/09/20 04:00 10/09/20 04:00 10/09/20 04:00 10/09/20 04:00 10/09/20 04:00 Laboratory Results - last 24 hr 10/08/20 12:09: POC Glucose 414 H* 10/08/20 16:35: POC Glucose 420 H* 10/08/20 17:58: Sodium 130 L, Potassium 3.4 L, Chloride 90 L, Carbon Dioxide 32 H, Anion Gap 11.4, BUN 18, Creatinine 0.80, Estimated Creat Clear 194, Estimated GFR 105, Est GFR ( Amer) 127 D, Glucose 351 H D, Calcium 8.7 10/08/20 20:11: POC Glucose 328 H* 10/09/20 05:52: POC Glucose 290 H 10/09/20 06:12: WBC 10.1, RBC 5.22, Hgb 14.5, Hct 41.7 L, MCV 80.0, MCH 27.7, MCHC 34.7, RDW 14.1, Plt Count 172, MPV 8.4, Neut % (Auto) 64.8, Lymph % (Auto) 29.0, [place] % (Auto) 4.0, Eos % (Auto) 1.6, Baso % (Auto) 0.5, Neut # (Auto) 6.5, Lymph # (Auto) 2.9, [place] # (Auto) 0.4, Eos # (Auto) 0.2, Baso # (Auto) 0.1 10/09/20 06:12: Sodium 131 L, Potassium 3.1 L, Chloride 92 L, Carbon Dioxide 32 H, Anion Gap 10.1, BUN 27 H D, Creatinine 0.90, Estimated Creat Clear 177, Estimated GFR 92, Est GFR ( Amer) 111, Glucose 282 H, Calcium 8.3 L I & O for Last 24 hours: Intake & Output 10/06/20 10/07/20 10/08/20 10/09/20 11:59 11:59 11:59 11:59 Intake Total 680 / 680 2961 / 2961 Output Total 1999 1925 / 1925 Balance -1320 / -1320 1036 / 1036 Weight 257 lb 3 oz 263 lb - Constitutional no acute distress Comments: Awakened from sound sleep for assessment. - *Routine Respiratory Exam Present: CTA bilaterally (Anteriorly and posteriorly) - *Routine Cardiovascular Exam Present: RRR - *Routine Abdominal Exam Present: soft, normoactive bowel sounds. 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 Diabetes mellitus complication status: with other specified complication Qualified Code(s): E11.69 - Type 2 diabetes mellitus with other specified complication Category: Medical Code(s): E11.9 - Type 2 diabetes mellitus without complications (2) Hypokalemia Status: Acute Category: Medical Code(s): E87.6 - Hypokalemia (3) Hypertension Status: Chronic Qualifiers: Hypertension type: essential hypertension Category: Medical Code(s): I10 - Essential (primary) hypertension (4) Tobacco abuse disorder Status: Chronic Category: Medical Code(s): Z72.0 - Tobacco use (5) Hyponatremia Status: Acute Category: Medical Code(s): E87.1 - Hypo-osmolality and hyponatremia - Assessment and plan all Dx Assessment and Plan for all problems:: Patient is ready to go home today. He does not wish a dietary consult. We will have nurses teach fingerstick blood sugars. Meds as per Dr. aGrcia. Will give extra dose of potassium today.
[2020-10-09 08:00] VITALS: BP 110/71; PULSE 82; RESP 18; TEMP 36.7; O2SAT 96
--- NOTE | 2020-10-09 10:05 | DIET.NUTRFU ---
Nutritional assessment, IP/consult completed, pt provided diet edu/counseling for newly diagnosed DM with A1C>12. Pt encouraged to f/u as OP and/or reach out through to RD at any time with nutritional questions/concerns.
[2020-10-09 10:06] VITALS: BMI 39.7
--- NOTE | 2020-10-09 12:44 | PC.NURSE ---
patient was instructed on how to check his own sugat (used patient teach back method) as well as taught pt how to self administer sliding scale insulin.
[2020-10-10 21:37] LABS: POC Glucose,Bedside 353 (70-110)
--- NOTE | 2020-10-14 15:58 | HMH.DCSUM ---
General - General Admission date:: 10/07/20 Discharge date: 10/09/20 HPI HPI: Mr. Singer is a 45-year-old male patient with history of hypertension and previous drug addiction on Suboxone at present presented to [facility] emergency room after experiencing aggressive vision changes over the last 2 weeks. He said it actually was worse the last couple of days. He notes that he has is had his blood sugar checked regularly at home and it had always been satisfactory. 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 He states he went to [place] on vacation for 2 days at which time his vision became worse and progressively became more blurred. He did not feel well yesterday and this along with the visual changes who presented to the emergency room. From ER documentation Description of Symptoms (Recalled from ER Triage Doc. by RN): pt presents with complaints of having blurry vision different from baseline during last two weeks. stated he was just gonna let it go , however tonight when he got out of the shower he noticed he had difficulty turning his wrist to put his deodorant on. identifies numbness to 4th/5th digits bilateral hands. pt ambulates easily. no other alteration in sensation. denies injury to spine or head. denies previous knowledge of injury to spine or head. verbal, clear speech. no acute respiratory difficulty, no confusion evident. NIH at present 0. CT of the head/brain IMPRESSION: Mild paranasal sinus disease. CT of cervical spine IMPRESSION: No definite acute findings. If there is ongoing concern or neurologic 10/07/20 19:25: WBC 9.9, RBC 5.82, Hgb 16.0, Hct 47.2, MCV 81.1, MCH 27.5, MCHC 33.9, RDW 13.7, Plt Count 193, MPV 8.7, Neut % (Auto) 73.6, Lymph % (Auto) 20.8, [place] % (Auto) 4.0, Eos % (Auto) 1.0, Baso % (Auto) 0.6, Neut # (Auto) 7.3, Lymph # (Auto) 2.0, [place] # (Auto) 0.4, Eos # (Auto) 0.1, Baso # (Auto) 0.1 10/07/20 19:25: Sodium 120 L, Potassium 3.2 L, Chloride 76 L, Carbon Dioxide 32 H, Anion Gap 15.2 H, BUN 20, Creatinine 1.20, Estimated Creat Clear 76, Estimated GFR 66, Est GFR ( Amer) 80, Glucose 917 H*, Calcium 9.2, Total Bilirubin 1.1, AST 40, ALT 74, Alkaline Phosphatase 187 H, Troponin I < 0.01, Total Protein 7.1, Albumin 4.4, Globulin 2.7, Albumin/Globulin Ratio 1.6 10/07/20 19:25: Urine Color Yellow, Urine Appearance Clear, Urine pH 6.0, Ur Specific [place] <= 1.005, Urine Protein Negative, Urine Glucose (UA) 3+, Urine Ketones Negative, Urine Blood Negative, Urine Nitrate Negative, Urine Bilirubin Negative, Urine Urobilinogen 0.2, Ur Leukocyte Esterase Negative, Urine WBC Occasional, Urine Bacteria Trace 10/07/20 19:25: Urine Opiates Screen Negative, Urine Methadone Screen Negative, Ur Barbituates Screen Negative, Ur Phencyclidine Scrn Negative, Ur Amphetamines Screen Negative, U Benzodiazepines Scrn Negative, Urine Cocaine Screen Negative, U Marijuana (THC) Screen Negative 10/07/20 19:25: Hemoglobin A1c 12.6 H 10/07/20 19:25: Acetone Level None detected 10/07/20 20:20: VBG pH 7.34, VBG pCO2 56.7 H, VBG pO2 43.5 H, VBG HCO3 29.8, VBG Total CO2 31.5 H, VBG O2 Saturation 77.8 H, VBG Base Excess 4.0 H This a.m. the patient does feel better. His blood sugars have been decreased after being given Lantus and is on sliding scale. His vision has improved. He is very anxious to go home. He denies chest pain and shortness of breath. He did eat breakfast and states he can eat anything. To note patient usually drinks a case of Pepsi a day.This a.m. sodium has improved to 130. Potassium is 3.2. Renal function shows a BUN of 23 and creatinine of 1. Blood sugar has decreased to 508. He sees cardiology here at [facility] and Dr. Burt is his family physician. He also goes to the Suboxone clinic for his Suboxone. Hospital Course Hospital Course: The patient was started on fluids as well as po
== END 2020-10-09 12:40 | disposition home or self-care (01) ==
LOC: ER 20:36 → ICU 21:22
PROVIDERS: Emergency Medicine; Nurse Practitioner Family; Admitting Provider Family Medicine; Emergency Provider Emergency Medicine; Visit Provider Family Medicine
DX: E11.9 Type 2 diabetes mellitus without complications (principal); Z20.822 Contact with and (suspected) exposure to COVID-19; I10 Essential (primary) hypertension; K21.9 Gastro-esophageal reflux disease without esophagitis; F17.210 Nicotine dependence, cigarettes, uncomplicated; E87.6 Hypokalemia; Z79.84 Long term (current) use of oral hypoglycemic drugs; Z79.899 Other long term (current) drug therapy
CPT/HCPCS: 36415; 70450; 72125; 80048; 80053; 80305; 81001; 82009; 82803; 82947; 82962; 83036; 84484; 85025; 96365; 99284; G0378; J0574; U0003

== ENCOUNTER → 2021-11-19 06:03 | Outpatient (CLI) | payer BC, SELFPAY ==
[2021-11-19 18:10] LABS: Adenovirus,PCR Not Detected (NotDetected); Bordetella Pertussis Not Detected (NotDetected); Chlamydophila Pneumoniae, PCR Not Detected (NotDetected); Coronavirus 19, PCR Not Detected (NotDetected); Coronavirus 229E Not Detected (NotDetected); Coronavirus NL63 Not Detected (NotDetected); Coronavirus OC43 Not Detected (NotDetected); Coronovirus HKU1,PCR Not Detected (NotDetected); Human Metapneumovirus Not Detected (NotDetected); Influenza A, PCR Not Detected (NotDetected); Influenza AH1, 2009 Not Detected (NotDetected); Influenza AH1, PCR Not Detected (NotDetected); Influenza AH3,PCR Not Detected (NotDetected); Influenza B, PCR Not Detected (NotDetected); Mycoplasma Pneumoniae, PCR Not Detected (NotDetected); Parainfluenza 1, PCR Not Detected (NotDetected); Parainfluenza 2, PCR Not Detected (NotDetected); Parainfluenza 3, PCR Not Detected (NotDetected); Parainfluenza 4, PCR Not Detected (NotDetected); Respiratory Syncytial Virus Not Detected (NotDetected); Rhinovirus/Enterovirus Not Detected (NotDetected)
== END ==
PROVIDERS: PCP Nurse Practitioner; Visit Provider Nurse Practitioner
DX: Z20.822 Contact with and (suspected) exposure to COVID-19 (principal); J06.9 Acute upper respiratory infection, unspecified; R05.9 Cough, unspecified; R53.83 Other fatigue; J02.9 Acute pharyngitis, unspecified
CPT/HCPCS: 87581; 87632; 87798; C9803; U0003; U0005

== ENCOUNTER → 2022-09-22 14:26 | Outpatient (CLI) | payer BC, SELFPAY ==
[2022-09-22 19:06] LABS: Alanine Aminotransferase 25 U/L (12-78); Albumin Level 4.2 g/dl (3.5-5.0); Albumin/Globulin Ratio 1.6 (1.1-1.8); Alkaline Phosphatase 90 U/L (38-126); Anion Gap 12.9 mEq/L (5-15); Aspartate Amino Transferase 28 U/L (17-59); Bilirubin,Total 0.2 mg/dl (0.2-1.3); Blood Urea Nitrogen 25 mg/dl (9-20); Calcium 9.7 mg/dl (8.4-10.2); Carbon Dioxide 30 mmol/L (22.0-30.0); Chloride 102 mmol/L (98-107); Estimated Glomerular Filt Rate 80 ml/min (>60); GFR (African American) 97 ML/MIN (>60); Globulin 2.6 g/dL (1.3-3.2); Glucose 141 mg/dl (74-100); Potassium 3.9 mmoL/L (3.5-5.1); Sodium 141 mmol/L (136-145); Total Protein,Serum 6.8 g/dl (6.3-8.2)
[2022-09-22 19:24] LABS: Hemoglobin A1C 7.1 % (4.0-6.0)
== END ==
PROVIDERS: PCP Family Medicine; Visit Provider Family Medicine
DX: E11.9 Type 2 diabetes mellitus without complications (principal); Z79.84 Long term (current) use of oral hypoglycemic drugs
CPT/HCPCS: 80053; 83036

== ENCOUNTER 2022-12-05 06:23 | Emergency (ER) | payer BC, SELFPAY ==
[2022-12-05 06:25] VITALS: BP 164/93; PULSE 77; RESP 18; TEMP 36.9; O2SAT 96; BMI 40.7
--- NOTE | 2022-12-05 06:35 | ECG_ITS ---
APPROVED REPORT Exam: Resting ECG HR:68 bpm ECG Measurements Heart Rate 68 AXES VT 155 P 17 QRSd 108 QRS 44 QT 372 T 6 QTc 390 Conclusion SINUS RHYTHM NORMAL ECG UNCONFIRMED REPORT Electronically signed by : Tryon Simon MD 12/07/2022 17:15:16
--- NOTE | 2022-12-05 06:44 | PC.NURSE ---
in room talking with patient at this time.
--- NOTE | 2022-12-05 06:47 | HMH.EDGENADL ---
Discharge Plan Disposition Patient Disposition: Home, Self-Care Condition: Fair Chief Complaint: Weakness Prescriptions Prescriptions: No Action triamterene-hydrochlorothiazid [Maxzide-25mg] 37.5-25 mg tablet 1 tab PO DAILY Qty: 30 3RF lisinopril 20 mg tablet See Rx Instructions .ROUTE .COMPLEX Qty: 90 1RF Dose Instruction: TAKE 1 TABLET ORALLY DAILY Rx Instructions: TAKE 1 TABLET ORALLY DAILY metoprolol succinate 100 mg tablet extended release 24 hr See Rx Instructions .ROUTE .COMPLEX Qty: 90 0RF Dose Instruction: TAKE 1 TABLET BY MOUTH EVERY DAY FOR HYPERTENSION Rx Instructions: TAKE 1 TABLET BY MOUTH EVERY DAY FOR HYPERTENSION metformin 500 mg tablet See Rx Instructions .ROUTE .COMPLEX Qty: 180 0RF Dose Instruction: TAKE 1 TABLET BY MOUTH TWICE A DAY FOR 90 DAYS Rx Instructions: TAKE 1 TABLET BY MOUTH TWICE A DAY FOR 90 DAYS buprenorphine-naloxone 1 EACH tablet, sublingual 1 each sublingual DAILY potassium chloride 20 MEQ tablet 20 meq PO DAILY Qty: 30 2RF Referrals Follow up/Referrals: Erick Cho MD [Primary Care Provider] - See instructions Activity Restrictions/Add. Instructions Additional Instructions/Restrictions: Please stop eating candy and chewing regular gum. You may continue consuming sugarless candy and or gum. Your glucose today was above 300. Also please take your metformin and all other medications as prescribed. Follow-up with your primary care doctor in about 3 to 5 days even if you feel well to have your sugar checked. Return immediately to the emergency department if you feel worse in any way. Clinical Impressions Clinical Impression: Acute hyperglycemia, Intermittent paresthesia of hand and foot, Chronic hypertension Instructions Patient Instructions: DI for High Blood Pressure, DI for Diabetes Type 2 Discharge ED Provider: Danii Wing Adult HPI General Chief complaint: Weakness Stated complaint: High Blood prressure Time Seen by Provider: 12/05/22 06:47 Mode of Arrival: Ambulatory Source of Information: Patient Limitations: No Limitations Description of Symptoms (Recalled from ER Triage Doc. by RN): Pt arrives with complaints of feeling tingly at work this morning. Pt BP was taken and states they told him it was 190/110. Pt has hx of HTN currently taking 3 BP meds in which he states his last dose yesterday. Denies any other symptoms at this time. History of Present Illness HPI narrative: The patient presents to the emergency department complaining of a 30 second episode during which the patient felt tingly and weak all over. This episode resolved spontaneously. The patient has a history of hypertension. He states that his blood pressure was taken shortly after his symptoms and he was hypertensive about 200 systolic. The patient denies any chest pain, headache, shortness of breath. He feels back to normal. Related Data Home Medications Medication Instructions Recorded Confirmed buprenorphine 8 mg-naloxone 2 mg 1 each sublingual DAILY WITHDRAWAL 10/07/20 09/22/22 sublingual tablet SYMPTOMS Previous Rx's Medication Instructions Recorded potassium chloride 20 mEq 20 meq PO DAILY #30 tabs 10/09/20 tablet,extended release(part/cryst) lisinopril 20 mg tablet See Rx Instructions .Route 09/01/22 .COMPLEX #90 tabs triamterene 37.5 1 tab PO DAILY #30 tabs 09/22/22 mg-hydrochlorothiazide 25 mg tablet (Maxzide-25mg) metoprolol succinate 100 mg See Rx Instructions .Route 11/26/22 tablet,extended release 24 hr .COMPLEX #90 tabs metformin 500 mg tablet See Rx Instructions .Route 12/03/22 .COMPLEX #180 tabs Allergies Allergy/AdvReac Type Severity Reaction Status Date / Time Penicillins Allergy Unknown Verified 09/22/22 13:04 [facility] Disclaimer: The information contained in this section may have been updated after the patient was seen, as this information can
[2022-12-05 06:57] LABS: POC Glucose,Bedside 322 (70-110)
[2022-12-05 07:00] VITALS: BP 162/74; PULSE 84; RESP 20; TEMP 36.6; O2SAT 98
== END 2022-12-05 07:03 | disposition home or self-care (01) ==
PROVIDERS: Emergency Provider Emergency Medicine; PCP Family Medicine
DX: E11.65 Type 2 diabetes mellitus with hyperglycemia (principal); I10 Essential (primary) hypertension; R53.1 Weakness; R20.2 Paresthesia of skin; E78.1 Pure hyperglyceridemia; F17.210 Nicotine dependence, cigarettes, uncomplicated
CPT/HCPCS: 82962; 93005; 99284

== ENCOUNTER 2022-12-25 14:12 | Emergency (ER) | payer BC, SELFPAY ==
[2022-12-25] VITALS (7 sets, daily range): BP systolic 101–146; BP diastolic 62–87; PULSE 73–91; RESP 10–19; TEMP 36.7–36.8; O2SAT 92–97; BMI 40.2; BMI 40.3
--- NOTE | 2022-12-25 14:39 | EXP.UTC ---
Discharge Plan Disposition Patient Disposition: Still a Patient Condition: Fair Prescriptions Prescriptions: No Action amlodipine 2.5 mg tablet 2.5 mg PO DAILY Qty: 30 0RF Jardiance 10 mg tablet 10 mg PO DAILY Qty: 30 0RF metoprolol succinate 100 mg tablet extended release 24 hr See Rx Instructions .ROUTE .COMPLEX Qty: 90 0RF Dose Instruction: TAKE 1 TABLET BY MOUTH EVERY DAY FOR HYPERTENSION Rx Instructions: TAKE 1 TABLET BY MOUTH EVERY DAY FOR HYPERTENSION metformin 500 mg tablet See Rx Instructions .ROUTE .COMPLEX Qty: 180 0RF Dose Instruction: TAKE 1 TABLET BY MOUTH TWICE A DAY FOR 90 DAYS Rx Instructions: TAKE 1 TABLET BY MOUTH TWICE A DAY FOR 90 DAYS lisinopril 20 mg tablet See Rx Instructions .ROUTE .COMPLEX Qty: 90 1RF Dose Instruction: TAKE 1 TABLET ORALLY DAILY Rx Instructions: TAKE 1 TABLET ORALLY DAILY triamterene-hydrochlorothiazid 37.5-25 mg tablet See Rx Instructions .ROUTE .COMPLEX Qty: 90 1RF Dose Instruction: TAKE 1 TABLET BY MOUTH EVERY DAY Rx Instructions: TAKE 1 TABLET BY MOUTH EVERY DAY buprenorphine-naloxone 1 EACH tablet, sublingual 1 each sublingual DAILY potassium chloride 20 MEQ tablet 20 meq PO DAILY Qty: 30 2RF hydrochlorothiazide 25 mg tablet 25 mg PO DAILY Patient Comments: TAKE 1 TABLET BY MOUTH EVERY DAY FOR FLUID Referrals Follow up/Referrals: Erick Cho MD [Primary Care Provider] - See instructions Clinical Impressions Clinical Impression: History of chest pain Discharge ED Provider: Johnnie Stephen [facility] General Stated complaint: cramps under left arm Mode of Arrival: Ambulatory Source of Information: Patient Limitations: No Limitations Time Seen by Provider: 12/25/22 14:53 Description of Symptoms (Recalled from Triage Doc. by RN): Pt stated that upper part of chest is getting a cramp feeling. He denies chest pain, SOB, it does not radiate. He stated that it comes an goes. HEENT Symptoms (Recalled from RN notes): No Resp Symptoms (Recalled from RN notes): No Skin Symptoms (Recalled from RN notes): No MS Symptoms (Recalled from RN notes): No Functional Status (Recalled from RN notes): n/a History of Present Illness Provider Complaint: He states that he called his doctor about having left sided chest pain. He states he was told to come to the hospital to have his heart ruled out. He came to the urgent care on accident. Related Data Home Medications Medication Instructions Recorded Confirmed buprenorphine 8 mg-naloxone 2 mg 1 each sublingual DAILY WITHDRAWAL 10/07/20 12/07/22 sublingual tablet SYMPTOMS hydrochlorothiazide 25 mg tablet 25 mg PO DAILY 12/25/22 12/25/22 Previous Rx's Medication Instructions Recorded potassium chloride 20 mEq 20 meq PO DAILY #30 tabs 10/09/20 tablet,extended release(part/cryst) metoprolol succinate 100 mg See Rx Instructions .Route 11/26/22 tablet,extended release 24 hr .COMPLEX #90 tabs metformin 500 mg tablet See Rx Instructions .Route 12/03/22 .COMPLEX #180 tabs amlodipine 2.5 mg tablet 2.5 mg PO DAILY #30 tabs 12/07/22 empagliflozin 10 mg tablet 10 mg PO DAILY #30 tabs 12/07/22 (Jardiance) lisinopril 20 mg tablet See Rx Instructions .Route 12/14/22 .COMPLEX #90 tabs triamterene 37.5 See Rx Instructions .Route 12/14/22 mg-hydrochlorothiazide 25 mg tablet .COMPLEX #90 tabs Allergies Allergy/AdvReac Type Severity Reaction Status Date / Time Penicillins Allergy Unknown Verified 12/25/22 14:32 Worker's Comp Is this a Worker's Comp case?: No [facility] Disclaimer: The information contained in this section may have been updated after the patient was seen, as this information can be updated by other users. Medical History Essential hypertension Fatigue History of kidney stones Hypertriglyceridemia Type 2 diabetes mellitus with
--- NOTE | 2022-12-25 14:41 | ECG_ITS ---
APPROVED REPORT Exam: Resting ECG HR:88 bpm ECG Measurements Heart Rate 88 AXES VA 136 P 41 QRSd 106 QRS 44 QT 351 T 3 QTc 396 Conclusion SINUS RHYTHM Isolated Q in III ABNORMAL ECG UNCONFIRMED REPORT Electronically signed by : Tyron Simon MD 12/26/2022 10:38:37
--- NOTE | 2022-12-25 14:50 | PC.NURSE ---
Pt ambulated to ED room 6 from [facility] with staff
--- NOTE | 2022-12-25 14:59 | PC.NURSE ---
Dr. Stephen at [facility] for pt eval
--- NOTE | 2022-12-25 15:00 | XR_ITS ---
FINAL REPORT CLINICAL HISTORY: dyspnea smoker x 20+ years COMPARISON: None FINDINGS: A single portable view of the chest was obtained. The heart size and pulmonary vascularity are within normal limits. The mediastinum is within normal limits. No acute pulmonary abnormality is identified. The bony thorax is intact. IMPRESSION: No active cardiopulmonary disease. Reviewed, Interpreted and Dictated by Artur Kyle III, MD Transcribed by Angelic Nuñez Authenticated and [facility]
--- NOTE | 2022-12-25 15:00 | HMH.EDGENADL ---
Discharge Plan Disposition Patient Disposition: Still a Patient Condition: Fair Prescriptions Prescriptions: No Action amlodipine 2.5 mg tablet 2.5 mg PO DAILY Qty: 30 0RF Jardiance 10 mg tablet 10 mg PO DAILY Qty: 30 0RF metoprolol succinate 100 mg tablet extended release 24 hr See Rx Instructions .ROUTE .COMPLEX Qty: 90 0RF Dose Instruction: TAKE 1 TABLET BY MOUTH EVERY DAY FOR HYPERTENSION Rx Instructions: TAKE 1 TABLET BY MOUTH EVERY DAY FOR HYPERTENSION metformin 500 mg tablet See Rx Instructions .ROUTE .COMPLEX Qty: 180 0RF Dose Instruction: TAKE 1 TABLET BY MOUTH TWICE A DAY FOR 90 DAYS Rx Instructions: TAKE 1 TABLET BY MOUTH TWICE A DAY FOR 90 DAYS lisinopril 20 mg tablet See Rx Instructions .ROUTE .COMPLEX Qty: 90 1RF Dose Instruction: TAKE 1 TABLET ORALLY DAILY Rx Instructions: TAKE 1 TABLET ORALLY DAILY triamterene-hydrochlorothiazid 37.5-25 mg tablet See Rx Instructions .ROUTE .COMPLEX Qty: 90 1RF Dose Instruction: TAKE 1 TABLET BY MOUTH EVERY DAY Rx Instructions: TAKE 1 TABLET BY MOUTH EVERY DAY buprenorphine-naloxone 1 EACH tablet, sublingual 1 each sublingual DAILY potassium chloride 20 MEQ tablet 20 meq PO DAILY Qty: 30 2RF hydrochlorothiazide 25 mg tablet 25 mg PO DAILY Patient Comments: TAKE 1 TABLET BY MOUTH EVERY DAY FOR FLUID Referrals Follow up/Referrals: Erick Cho MD [Primary Care Provider] - See instructions Activity Restrictions/Add. Instructions Additional Instructions/Restrictions: Call your family doctor to establish care for this visit to the emergency department and schedule follow-up within 48 hours to ensure improvement. If you have any worsening of your condition or any other concerning signs or symptoms, return to the emergency department or your primary care doctor for further evaluation. Call checker in regarding this visit to see if you can schedule routine follow-up. Clinical Impressions Clinical Impression: Atypical chest pain Discharge ED Provider: Bro Edmond General Adult HPI <Johnnie Stephen MD - Last Filed: 12/25/22 15:03> General Chief complaint: Chest Pain Stated complaint: cramps under left arm Time Seen by Provider: 12/25/22 14:53 Mode of Arrival: Ambulatory Source of Information: Patient Limitations: No Limitations Description of Symptoms (Recalled from ER Triage Doc. by RN): Pt stated that upper part of chest is getting a cramp feeling. He denies chest pain, SOB, it does not radiate. He stated that it comes an goes. History of Present Illness HPI narrative: Patient is a 47-year-old male with no significant past medical problems aside from hypertension and diabetes who presents today with left-sided chest pain. These episodes have been intermittent in nature that he describes as a squeezing or cramping type pain on the left anterior and lateral aspect of his chest wall. Denies any radiation denies any diaphoresis or dyspnea associated there is nothing exertional as well. Called his primary care doctor they told to come to the emergency department he actually went to the urgent treatment clinic where he was first seen and he was transferred to the emergency department. Patient is currently asymptomatic states his episodes have been lasting about 5 minutes at a time most recently 2 hours ago. Related Data Home Medications Medication Instructions Recorded Confirmed buprenorphine 8 mg-naloxone 2 mg 1 each sublingual DAILY WITHDRAWAL 10/07/20 12/07/22 sublingual tablet SYMPTOMS hydrochlorothiazide 25 mg tablet 25 mg PO DAILY 12/25/22 12/25/22 Previous Rx's Medication Instructions Recorded potassium chloride 20 mEq 20 meq PO DAILY #30 tabs 10/09/20 tablet,extended release(part/cryst) metoprolol succinate 100 mg See Rx Instructions .Route 11/26/22 tablet,extended release 24 hr .COMPLEX #90 tabs metformin 500 mg tablet See Rx
[2022-12-25 15:13] LABS: Basophils % 0.4 % (0.1-2.0); Eosinophils # 0.4 K/mm3 (0.0-0.4); Eosinophils % 3.5 % (0.1-12.0); Hematocrit 40.9 % (42.0-52.0); Hemoglobin 14.4 g/dL (14.1-18.0); Lymphocytes # 2.4 K/mm3 (0.7-4.5); Lymphocytes % 22.9 % (10-50); Mean Corpuscular HGB Conc 35.2 g/dL (31.8-35.4); Mean Corpuscular Hemoglobin 30.1 pg (27.0-31.2); Mean Corpuscular Volume 85.5 fl (80-94); Mean Platelet Volume 8.5 fl (7.4-10.4); Monocytes # 0.5 K/mm3 (0.1-1.0); Monocytes % 4.4 % (1.7-9.3); Neutrophils # 7.1 K/mm3 (1.8-7.8); Neutrophils % 68.8 % (37.0-80.0); Platelet Count 189 K/mm3 (142-424); Red Blood Count 4.78 M/mm3 (4.60-6.20); Red Cell Distribution Width 14.3 % (11.5-17.5); White Blood Count 10.4 K/mm3 (4.8-10.8)
--- NOTE | 2022-12-25 15:22 | PC.NURSE ---
RAD at for CXR
[2022-12-25 15:25] LABS: Alanine Aminotransferase 55 U/L (12-78); Albumin Level 4.5 g/dl (3.5-5.0); Albumin/Globulin Ratio 1.5 (1.1-1.8); Alkaline Phosphatase 99 U/L (38-126); Aspartate Amino Transferase 50 U/L (17-59); Bilirubin,Total 0.4 mg/dl (0.2-1.3); Blood Urea Nitrogen 27 mg/dl (9-20); Calcium 9.2 mg/dl (8.4-10.2); Carbon Dioxide 24 mmol/L (22.0-30.0); Chloride 103 mmol/L (98-107); Creatinine Clearance Estimated 131 mL/min (50-200); Estimated Glomerular Filt Rate 65 ml/min (>60); GFR (African American) 79 ML/MIN (>60); Glucose 180 mg/dl (74-100); Magnesium 1.6 mg/dl (1.6-2.3); Sodium 138 mmol/L (136-145); Total Protein,Serum 7.5 g/dl (6.3-8.2)
[2022-12-25 15:38] LABS: Troponin I < 0.01 ng/ml (0.00-0.034)
== END 2022-12-25 16:22 | disposition still patient (30) ==
LOC: UTC 14:15 → ER 14:42
PROVIDERS: Student in an Organized Health Care Education/Training Program; Emergency Provider Emergency Medicine; PCP Family Medicine
DX: R07.89 Other chest pain (principal); I10 Essential (primary) hypertension; E11.9 Type 2 diabetes mellitus without complications; E78.1 Pure hyperglyceridemia; F17.210 Nicotine dependence, cigarettes, uncomplicated; Z79.84 Long term (current) use of oral hypoglycemic drugs
CPT/HCPCS: 71045; 80053; 83735; 84484; 85025; 93005; 99284

== ENCOUNTER → 2023-02-08 02:00 | Outpatient (CLI) | payer BC, SELFPAY ==
[2023-02-08 18:32] LABS: Creatinine,Urine Random 103 mg/dL (Not Estab.); Microalbumin < 6.000 mg/L (0-16.7)
[2023-02-08 18:44] LABS: Alanine Aminotransferase 48 U/L (12-78); Albumin Level 4.4 g/dl (3.5-5.0); Albumin/Globulin Ratio 1.6 (1.1-1.8); Alkaline Phosphatase 98 U/L (38-126); Aspartate Amino Transferase 43 U/L (17-59); Bilirubin,Total 0.3 mg/dl (0.2-1.3); Blood Urea Nitrogen 32 mg/dl (9-20); Calcium 9.1 mg/dl (8.4-10.2); Carbon Dioxide 26 mmol/L (22.0-30.0); Chloride 103 mmol/L (98-107); Chol/HDL Ratio 5.1 (1-3.5); Cholesterol 178 mg/dl (140-200); Estimated Glomerular Filt Rate 65 ml/min (>60); GFR (African American) 79 ML/MIN (>60); Globulin 2.8 g/dL (1.3-3.2); Glucose 146 mg/dl (74-100); HDL Cholesterol 35 mg/dl (40-60); Sodium 135 mmol/L (136-145); Total Protein,Serum 7.2 g/dl (6.3-8.2); Triglycerides 393 mg/dl (30-150); VLDL Cholesterol 79 mg/dL (0-40)
[2023-02-08 18:54] LABS: Direct LDL Cholesterol 90.62 mg/dL (100-129)
[2023-02-08 19:14] LABS: Thyroid Stimulating Hormone 1.54 uIU/mL (0.465-4.68)
[2023-02-08 20:29] LABS: Hemoglobin A1C 8.1 % (4.0-6.0)
== END ==
PROVIDERS: PCP Nurse Practitioner; Visit Provider Nurse Practitioner
DX: E11.9 Type 2 diabetes mellitus without complications (principal); E78.1 Pure hyperglyceridemia; I10 Essential (primary) hypertension; Z79.84 Long term (current) use of oral hypoglycemic drugs; Z79.899 Other long term (current) drug therapy
CPT/HCPCS: 80053; 80061; 82043; 82570; 83036; 84443

== ENCOUNTER 2023-02-16 05:17 | Emergency (ER) | payer BC, SELFPAY ==
[2023-02-16 05:18] VITALS: BP 164/90; PULSE 93; RESP 20; TEMP 36.6; O2SAT 94; BMI 40.3
[2023-02-16 05:37] VITALS: BP 142/86; PULSE 86; RESP 20; TEMP 36.4; O2SAT 97
--- NOTE | 2023-02-16 05:40 | HMH.EDGENADL ---
Discharge Plan Disposition Patient Disposition: Home, Self-Care Condition: Good Prescriptions Prescriptions: New amoxicillin 500 mg tablet 1,000 mg PO TID 5 Days Qty: 30 0RF No Action amlodipine 5 mg tablet 5 mg PO DAILY Qty: 30 2RF lisinopril 40 mg tablet 40 mg PO DAILY Qty: 30 2RF Rx Instructions: 1/2 tab BID metformin 500 mg tablet See Rx Instructions .ROUTE .COMPLEX Qty: 180 0RF Dose Instruction: TAKE 1 TABLET BY MOUTH TWICE A DAY FOR 90 DAYS Rx Instructions: TAKE 1 TABLET BY MOUTH TWICE A DAY FOR 90 DAYS triamterene-hydrochlorothiazid 37.5-25 mg tablet See Rx Instructions .ROUTE .COMPLEX Qty: 90 1RF Dose Instruction: TAKE 1 TABLET BY MOUTH EVERY DAY Rx Instructions: TAKE 1 TABLET BY MOUTH EVERY DAY Jardiance 10 mg tablet See Rx Instructions .ROUTE .COMPLEX Qty: 30 0RF Dose Instruction: TAKE 1 TABLET BY MOUTH EVERY DAY Rx Instructions: TAKE 1 TABLET BY MOUTH EVERY DAY metoprolol succinate 100 mg tablet extended release 24 hr See Rx Instructions .ROUTE .COMPLEX Qty: 90 0RF Dose Instruction: TAKE 1 TABLET BY MOUTH EVERY DAY FOR HYPERTENSION Rx Instructions: TAKE 1 TABLET BY MOUTH EVERY DAY FOR HYPERTENSION buprenorphine-naloxone 1 EACH tablet, sublingual 1 each sublingual DAILY potassium chloride 20 MEQ tablet 20 meq PO DAILY Qty: 30 2RF Referrals Follow up/Referrals: Sophia Mac APRN [Primary Care Provider] - See instructions Activity Restrictions/Add. Instructions Additional Instructions/Restrictions: You were evaluated in the ER today. You do have findings of ear infection. Take the prescribed amoxicillin as directed, you stated you do not believe you are actually allergic to penicillins. If you do have a reaction to this medication, return to the ER for evaluation and we will change her antibiotics. Take this medication as directed, do not skip doses, do not stop taking it early. Make an appointment with your primary care physician for reevaluation in 2 to 3 days. Return to the ER with any new, worsening, or otherwise concerning symptoms as discussed. Clinical Impressions Clinical Impression: Otitis media Qualifiers: Otitis media type: unspecified Chronicity: acute Qualified Code(s): H66.90 - Otitis media, unspecified, unspecified ear Stand Alone Forms Stand Alone Forms: Work/School Release Discharge ED Provider: Juan Corona Adult [facility] General Chief complaint: Upper Respiratory Infection Stated complaint: sinus drainage, congestion, bad taste in mouth Time Seen by Provider: 02/16/23 05:26 Mode of Arrival: Ambulatory Source of Information: Patient Limitations: No Limitations Description of Symptoms (Recalled from ER Triage Doc. by RN): pt reports cough, congestion, hot flashes and weird taste in mouth since yesterday, reports taking Tylenol cold and sinus History of Present Illness HPI narrative: This 47-year-old male with a reported history of borderline diabetes, high blood pressure presents to the ER with concerns of feeling warm all over and having a metallic taste in his mouth very briefly. Patient states the symptoms were concerning because he has high blood pressure and has been developing congestion over the last 24 to 48 hours so he thought he should get evaluated. He states his symptoms were very brief and have completely subsided. He had no other associated symptoms. He does state his ears have been popping and he has pain in both of them. He denies chills. He declined to be tested for viruses at this time. Related Data Home Medications Medication Instructions Recorded Confirmed buprenorphine 8 mg-naloxone 2 mg 1 each sublingual DAILY WITHDRAWAL 10/07/20 02/08/23 sublingual tablet SYMPTOMS Previous Rx's Medication Instructions Recorded potassium chloride 20 mEq 20 meq PO DAILY #30 tabs 10/09/20 tablet,extended release(part/cryst) metformin 500 mg tablet
== END 2023-02-16 05:44 | disposition home or self-care (01) ==
PROVIDERS: Emergency Provider Emergency Medicine; PCP Nurse Practitioner
DX: H66.90 Otitis media, unspecified, unspecified ear (principal); R05.9 Cough, unspecified; E11.9 Type 2 diabetes mellitus without complications; I10 Essential (primary) hypertension; F17.210 Nicotine dependence, cigarettes, uncomplicated
CPT/HCPCS: 99283

== ENCOUNTER 2023-05-20 21:12 | Outpatient (CLI) | payer OTHER, SELFPAY ==
[2023-05-20 18:39] LABS: Basophils # 0.1 K/mm3 (0-0.2); Basophils % 0.8 % (0.1-2.0); Eosinophils # 0.3 K/mm3 (0.0-0.4); Eosinophils % 2.6 % (0.1-12.0); Hematocrit 45.3 % (42.0-52.0); Hemoglobin 14.7 g/dL (14.1-18.0); Lymphocytes # 2.2 K/mm3 (0.7-4.5); Lymphocytes % 23.1 % (10-50); Mean Corpuscular HGB Conc 32.5 g/dL (31.8-35.4); Mean Corpuscular Hemoglobin 28.8 pg (27.0-31.2); Mean Corpuscular Volume 88.5 fl (80-94); Mean Platelet Volume 9.3 fl (7.4-10.4); Monocytes # 0.4 K/mm3 (0.1-1.0); Monocytes % 4.1 % (1.7-9.3); Neutrophils # 6.6 K/mm3 (1.8-7.8); Neutrophils % 69.5 % (37.0-80.0); Platelet Count 248 K/mm3 (142-424); Red Blood Count 5.12 M/mm3 (4.60-6.20); Red Cell Distribution Width 14.7 % (11.5-17.5); White Blood Count 9.5 K/mm3 (4.8-10.8)
[2023-05-20 18:44] LABS: Alanine Aminotransferase 39 U/L (12-78); Albumin Level 4.5 g/dl (3.5-5.0); Albumin/Globulin Ratio 1.7 (1.1-1.8); Alkaline Phosphatase 90 U/L (38-126); Anion Gap 13.7 mEq/L (5-15); Aspartate Amino Transferase 49 U/L (17-59); Bilirubin,Total 0.4 mg/dl (0.2-1.3); Blood Urea Nitrogen 37 mg/dl (9-20); Calcium 9.6 mg/dl (8.4-10.2); Carbon Dioxide 23 mmol/L (22.0-30.0); Chloride 107 mmol/L (98-107); Chol/HDL Ratio 6.5 (1-3.5); Cholesterol 196 mg/dl (140-200); Estimated Glomerular Filt Rate 65 ml/min (>60); GFR (African American) 79 ML/MIN (>60); Globulin 2.7 g/dL (1.3-3.2); Glucose 131 mg/dl (74-100); HDL Cholesterol 30 mg/dl (40-60); Potassium 4.7 mmoL/L (3.5-5.1); Sodium 139 mmol/L (136-145); Total Protein,Serum 7.2 g/dl (6.3-8.2); Triglycerides 206 mg/dl (30-150); VLDL Cholesterol 41 mg/dL (0-40)
[2023-05-20 18:55] LABS: Direct LDL Cholesterol 111.51 mg/dL (100-129)
[2023-05-20 19:06] LABS: 25-OH Vitamin D, Total 34.2 ng/mL (30-100)
[2023-05-20 19:15] LABS: Thyroid Stimulating Hormone 1.44 uIU/mL (0.465-4.68)
[2023-05-20 19:34] LABS: Vitamin B12 444 pg/mL (239-931)
[2023-05-20 19:53] LABS: Creatinine,Urine Random 122 mg/dL (Not Estab.)
[2023-05-20 19:58] LABS: Microalbumin/Creatinine Ratio 8.6
[2023-05-20 20:16] LABS: Hemoglobin A1C 8.3 % (4.0-6.0)
== END 2023-05-20 23:59 ==
LOC: LAB.DROPOF 21:14
PROVIDERS: PCP Nurse Practitioner; Visit Provider Nurse Practitioner
DX: E11.9 Type 2 diabetes mellitus without complications (principal); I10 Essential (primary) hypertension; E78.1 Pure hyperglyceridemia; E66.9 Obesity, unspecified; Z68.41 Body mass index [BMI] 40.0-44.9, adult; Z79.84 Long term (current) use of oral hypoglycemic drugs; Z79.899 Other long term (current) drug therapy
CPT/HCPCS: 80053; 80061; 82043; 82306; 82570; 82607; 83036; 84443; 85025

== ENCOUNTER 2023-07-13 12:09 | Outpatient (CLI) | payer OTHER, SELFPAY ==
[2023-07-13 18:31] LABS: Coronavirus 19, PCR Not Detected (NotDetected); Influenza A, PCR Not Detected (NotDetected); Influenza B, PCR Not Detected (NotDetected)
[2023-07-13 19:07] LABS: Basophils # 0.1 K/mm3 (0-0.2); Basophils % 0.5 % (0.1-2.0); Eosinophils # 0.4 K/mm3 (0.0-0.4); Eosinophils % 3.6 % (0.1-12.0); Hematocrit 41.1 % (42.0-52.0); Hemoglobin 13.3 g/dL (14.1-18.0); Lymphocytes # 2.3 K/mm3 (0.7-4.5); Lymphocytes % 19.5 % (10-50); Mean Corpuscular HGB Conc 32.3 g/dL (31.8-35.4); Mean Corpuscular Hemoglobin 28.6 pg (27.0-31.2); Mean Corpuscular Volume 88.6 fl (80-94); Mean Platelet Volume 8.4 fl (7.4-10.4); Monocytes # 0.6 K/mm3 (0.1-1.0); Monocytes % 5.2 % (1.7-9.3); Neutrophils # 8.6 K/mm3 (1.8-7.8); Neutrophils % 71.3 % (37.0-80.0); Platelet Count 204 K/mm3 (142-424); Red Blood Count 4.64 M/mm3 (4.60-6.20); Red Cell Distribution Width 15.3 % (11.5-17.5); White Blood Count 12.1 K/mm3 (4.8-10.8)
== END 2023-07-13 23:59 | disposition home or self-care (01) ==
LOC: LAB.DROPOF 07-14 12:09
PROVIDERS: PCP Family Medicine; Visit Provider Family Medicine
DX: J40 Bronchitis, not specified as acute or chronic (principal); R05.9 Cough, unspecified; R09.89 Other specified symptoms and signs involving the circulatory and respiratory systems; R53.81 Other malaise
CPT/HCPCS: 85025; 87636

== ENCOUNTER 2024-01-04 16:30 | Outpatient (CLI) | payer OTHER, SELFPAY ==
[2024-01-04 18:23] LABS: Basophils # 0.1 K/mm3 (0-0.2); Basophils % 0.7 % (0.1-2.0); Eosinophils # 0.3 K/mm3 (0.0-0.4); Eosinophils % 2.9 % (0.1-12.0); Hematocrit 42.9 % (42.0-52.0); Hemoglobin 14.3 g/dL (14.1-18.0); Lymphocytes # 3.2 K/mm3 (0.7-4.5); Lymphocytes % 26.2 % (10-50); Mean Corpuscular HGB Conc 33.3 g/dL (31.8-35.4); Mean Corpuscular Hemoglobin 27.7 pg (27.0-31.2); Monocytes # 0.6 K/mm3 (0.1-1.0); Monocytes % 5.3 % (1.7-9.3); Neutrophils # 7.8 K/mm3 (1.8-7.8); Neutrophils % 64.9 % (37.0-80.0); Platelet Count 199 K/mm3 (142-424); Red Blood Count 5.17 M/mm3 (4.60-6.20); Red Cell Distribution Width 14.9 % (11.5-17.5); White Blood Count 12.1 K/mm3 (4.8-10.8)
[2024-01-04 18:58] LABS: Alanine Aminotransferase 55 U/L (12-78); Albumin Level 4.3 g/dl (3.5-5.0); Albumin/Globulin Ratio 1.6 (1.1-1.8); Alkaline Phosphatase 97 U/L (38-126); Anion Gap 18.5 mEq/L (5-15); Aspartate Amino Transferase 33 U/L (17-59); Bilirubin,Total 0.6 mg/dl (0.2-1.3); Blood Urea Nitrogen 40 mg/dl (9-20); Calcium 9.5 mg/dl (8.4-10.2); Carbon Dioxide 26 mmol/L (22.0-30.0); Chloride 95 mmol/L (98-107); Estimated Glomerular Filt Rate 47 ml/min (>60); GFR (African American) 56 ML/MIN (>60); Globulin 2.7 g/dL (1.3-3.2); Glucose 229 mg/dl (74-100); Potassium 4.5 mmoL/L (3.5-5.1); Sodium 135 mmol/L (136-145)
[2024-01-04 19:26] LABS: Prostate Specific Ag Screen 0.4 ng/ml (0.0-4.0)
== END 2024-01-04 23:59 | disposition home or self-care (01) ==
LOC: LAB.DROPOF 01-05 13:19
PROVIDERS: PCP Family Medicine; Visit Provider Family Medicine
DX: N40.0 Benign prostatic hyperplasia without lower urinary tract symptoms (principal); E11.9 Type 2 diabetes mellitus without complications; D72.825 Bandemia; Z79.84 Long term (current) use of oral hypoglycemic drugs
CPT/HCPCS: 80053; 85025; G0103

== ENCOUNTER 2024-07-15 10:48 | Emergency (ER) | payer OTHER, SELFPAY ==
[2024-07-15] VITALS (8 sets, daily range): BP systolic 114–156; BP diastolic 71–97; PULSE 70–81; RESP 9–18; TEMP 36.6–36.8; O2SAT 95–99; BMI 23.6
--- NOTE | 2024-07-15 10:57 | ECG_ITS ---
APPROVED REPORT Exam: Resting ECG HR:80 bpm ECG Measurements Heart Rate 80 AXES VT 164 P 27 QRSd 109 QRS 73 QT 364 T 13 QTc 401 Conclusion SINUS RHYTHM NORMAL ECG UNCONFIRMED REPORT Electronically signed by : ABDULLAHI RHODES, 07/16/2024 23:43:48
--- NOTE | 2024-07-15 11:26 | XR_ITS ---
PROCEDURE INFORMATION: Exam: XR Chest Exam date and time: 07/15/2024 11:41 AM Age: 48 years old Clinical indication: Other: Left upper lung wheezing, smoker TECHNIQUE: Imaging protocol: Radiologic exam of the chest. Views: 2 views. COMPARISON: CR XR CHEST PORTABLE 12/25/2022 3:38 PM FINDINGS: Lungs: No evidence of pneumonia or interstitial edema. Pleural spaces: Unremarkable. No pleural effusion. No pneumothorax. Heart/Mediastinum: Unremarkable. No cardiomegaly. Bones/joints: Unremarkable. IMPRESSION: No evidence of pneumonia or interstitial edema.
[2024-07-15 11:35] LABS: Basophils # 0.1 K/mm3 (0-0.2); Basophils % 0.8 % (0.1-2.0); Eosinophils # 0.3 Kmm3 (0.0-0.4); Hematocrit 43.3 % (42.0-52.0); Hemoglobin 14.4 g/dL (14.1-18.0); Immature Granulocytes # 0.02 10^3uL; Immature Granulocytes % 0.2 %; Lymphocytes # 1.9 K/mm3 (0.7-4.5); Lymphocytes % 22.1 % (10-50); Mean Corpuscular HGB Conc 33.3 g/dL (31.8-35.4); Mean Corpuscular Hemoglobin 27.5 pg (27.0-31.2); Mean Corpuscular Volume 82.8 fl (80-94); Mean Platelet Volume 9.9 fl (7.4-10.4); Monocytes # 0.4 K/mm3 (0.1-1.0); Monocytes % 5.1 % (1.7-9.3); Neutrophils % 68.8 % (37.0-80.0); Nucleated Red Blood Cells # 0 10^3/uL; Nucleated Red Blood Cells % 0 %; Platelet Count 213 K/mm3 (142-424); Red Blood Count 5.23 M/mm3 (4.60-6.20); Red Cell Distribution Width 13.4 % (11.5-17.5); Red Cell Distribution Width-SD 40.9 fL; White Blood Count 8.7 K/mm3 (4.8-10.8)
[2024-07-15] MEDS: IPRATROPIUM/ALBUTEROL 3 ML NEB IH (11:35)
[2024-07-15 11:42] LABS: Albumin Level 4.7 g/dl (3.5-5.0); Chloride 100 mmol/L (98-107); Potassium 4.2 mmoL/L (3.5-5.1); Sodium 135 mmol/L (136-145)
[2024-07-15 11:45] LABS: Alanine Aminotransferase 24 U/L (12-78); Albumin/Globulin Ratio 1.7 (1.1-1.8); Alkaline Phosphatase 80 U/L (38-126); Anion Gap 11.2 mEq/L (5-15); Aspartate Amino Transferase 29 U/L (17-59); Bilirubin,Total 0.4 mg/dl (0.2-1.3); Blood Urea Nitrogen 21 mg/dl (9-20); Calcium 9.5 mg/dl (8.4-10.2); Carbon Dioxide 28 mmol/L (22.0-30.0); Creatinine Clearance Estimated 83 mL/min (50-200); Estimated Glomerular Filt Rate 72 ml/min (>60); GFR (African American) 87 ML/MIN (>60); Globulin 2.8 g/dL (1.3-3.2); Glucose 131 mg/dl (74-100); Magnesium 1.7 mg/dl (1.6-2.3); Total Protein,Serum 7.5 g/dl (6.3-8.2)
--- NOTE | 2024-07-15 11:58 | [facility].EDCP ---
Discharge Plan Disposition Patient Disposition: Home, Self-Care Condition: Good Prescriptions Prescriptions: No Action (DME) Dexcom G7 Sensor Device See Rx Instructions .Route Qty: 1 0RF Rx Instructions: As directed (DME) Dexcom G7 Sales Recruitment Specialist Misc See Rx Instructions .Route Qty: 1 0RF Rx Instructions: As directed pantoprazole [Protonix] 40 mg tablet,delayed release (DR/EC) 40 mg PO DAILY Qty: 90 3RF azithromycin 250 mg tablet See Rx Instructions PO .COMPLEX Qty: 6 0RF Rx Instructions: For 250 mg dose pack: take 500 mg today (day 1), then 250 mg for 4 days (days 2-5) PO ofloxacin 0.3 % drops 10 drp Ear-Left BID 7 Days Qty: 5 0RF aspirin [Adult Aspirin Regimen] 81 mg tablet,delayed release (DR/EC) 81 mg PO DAILY Imitix 45-3.75-50 mg tablet,chewable PO fluticasone propionate 50 mcg/actuation spray,suspension 1 spray intranasal DAILY Qty: 16 2RF Rx Instructions: administer into each nostril amlodipine 5 mg tablet See Rx Instructions .ROUTE .COMPLEX Qty: 90 0RF Dose Instruction: TAKE 1 TABLET BY MOUTH EVERY DAY Rx Instructions: TAKE 1 TABLET BY MOUTH EVERY DAY montelukast 10 mg tablet See Rx Instructions .ROUTE .COMPLEX Qty: 90 3RF Dose Instruction: TAKE 1 TABLET BY MOUTH EVERY DAY Rx Instructions: TAKE 1 TABLET BY MOUTH EVERY DAY cetirizine 10 mg tablet See Rx Instructions .ROUTE .COMPLEX Qty: 90 3RF Dose Instruction: TAKE 1 TABLET BY MOUTH EVERY DAY Rx Instructions: TAKE 1 TABLET BY MOUTH EVERY DAY Jardiance 25 mg tablet See Rx Instructions .ROUTE .COMPLEX Qty: 90 1RF Dose Instruction: TAKE 1 TABLET BY MOUTH EVERY DAY Rx Instructions: TAKE 1 TABLET BY MOUTH EVERY DAY Ozempic 0.25 mg or 0.5 mg (2 mg/3 mL) pen injector 0.25 mg SQ WEEKLY Qty: 3 4RF Rx Instructions: for 4 weeks metformin 500 mg tablet See Rx Instructions .ROUTE .COMPLEX Qty: 180 0RF Dose Instruction: TAKE 1 TABLET BY MOUTH TWICE A DAY Rx Instructions: TAKE 1 TABLET BY MOUTH TWICE A DAY metoprolol succinate 100 mg tablet extended release 24 hr See Rx Instructions .ROUTE .COMPLEX Qty: 90 0RF Dose Instruction: TAKE 1 TABLET BY MOUTH EVERY DAY FOR HYPERTENSION Rx Instructions: TAKE 1 TABLET BY MOUTH EVERY DAY FOR HYPERTENSION triamterene-hydrochlorothiazid 37.5-25 mg tablet See Rx Instructions .ROUTE .COMPLEX Qty: 90 1RF Dose Instruction: TAKE 1 TABLET BY MOUTH EVERY DAY Rx Instructions: TAKE 1 TABLET BY MOUTH EVERY DAY lisinopril 40 mg tablet 40 mg PO DAILY Qty: 90 1RF buprenorphine-naloxone 1 EACH tablet, sublingual 1 each sublingual DAILY potassium chloride 20 MEQ tablet 20 meq PO DAILY Qty: 30 2RF Referrals Follow up/Referrals: Sophia Mac APRN [Primary Care Provider] - See instructions Activity Restrictions/Add. Instructions Additional Instructions/Restrictions: You were evaluated for left shoulder and chest pain. Your evaluation did not suggest that this pain is related to your heart. Please take Tylenol and ibuprofen every 6 hours for pain. You are also found to have wheezing in your left upper lung. It is advised that you quit smoking to prevent further damage. You may require an inhaler or further treatment that you should discuss with your primary care provider. Please follow up with your primary care provider in 2-3 days. Please return to ED if your symptoms worsen, change in location, change in severity, new symptoms develop or if you become concerned for your health. See website below for additional shoulder exercises: [email or web address] Clinical Impressions Clinical Impression: Acute pain of left shoulder, Tobacco abuse disorder, Essential hypertension, Wheezing on inspiration Instructions Patient Instructions: Shoulder Tendinopathy, DI for Shoulder Pain, DI for Chest Pain Print Language Print Language: Togolese Discharge ED Provider: Ruth West HPI General Chief Complaint: Chest Pain Stated Complaint: L arm pain, Light-headed, BP High Time Seen by Provider: 07/15/24 11:04 Mode of Arrival: Ambulatory Source of Information: Patient Description of Symptoms (Recalled from ER Triage Doc. by RN): pt reports approx 0900 this morning he had a hot burning feeling in upper chest that last approx 30 minutes. Pt reports his bp was also elevated. Pt this was around the time of him taking his morning medications. Pt reports he has felt lightheaded intermittently today. Pt denies h/a, denies SOA. History of Present Illness HPI narrative: Emmanuel Singer is a 48-year-old male presenting with chest pain. Patient reports having a warm feeling over his left shoulder and upper left chest. He denies pressure in the chest. He states he has had pain in his left shoulder for quite a while but noted the warmness this morning and took his blood pressure and noted to be high. He states he usually takes his blood pressure medications and other medications at approximately 4 AM when he gets up for work. Today he slept in until 8 and took his medications at 830. Patient noted his blood pressure to be high when he felt this warm sensation in his left shoulder/upper chest. Patient denies nausea, diaphoresis, headache. He does feel slightly lightheaded. Patient is a current every day smoker, has hypertension and diabetes on metformin. Patient denies prior heart attacks or cardiac surgeries. Patient does heavy lifting daily for work. Patient does not recall any specific injury to his left shoulder. Related Data Home Medications ?Medication ?Instructions ?Recorded ?Confirmed buprenorphine 8 mg-naloxone 2 mg 1 each sublingual DAILY WITHDRAWAL 10/07/20 07/15/24 sublingual tablet SYMPTOMS aspirin 81 mg tablet,delayed 81 mg PO DAILY 05/20/23 03/14/24 release (Adult Aspirin Regimen) vitamin C 45 mg-zinc citrate 3.75 tab PO 05/20/23 03/14/24 mg-elderberry 50 mg chewable tablet (Imitix) Previous Rx's ?Medication ?Instructions ?Recorded potassium chloride 20 mEq 20 meq PO DAILY #30 tabs 10/09/20 tablet,extended release(part/cryst) fluticasone propionate 50 1 spray intranasal DAILY #16 grams 12/29/23 mcg/actuation nasal spray,suspension blood-glucose sensor (Dexcom G7 #1 ea 01/04/24 Sensor device) blood-glucose,hunting and fishing guide,cont #1 ea 01/04/24 (Dexcom G7 Sales Recruitment Specialist) pantoprazole 40 mg tablet,delayed 40 mg PO DAILY #90 tabs 01/07/24 release (Protonix) amlodipine 5 mg tablet See Rx Instructions .Route 02/07/24 .COMPLEX #90 tabs cetirizine 10 mg tablet See Rx Instructions .Route 02/16/24 .COMPLEX #90 tabs empagliflozin 25 mg tablet See Rx Instructions .Route 02/16/24 (Jardiance) .COMPLEX #90 tabs montelukast 10 mg tablet See Rx Instructions .Route 02/16/24 .COMPLEX #90 tabs azithromycin 250 mg tablet See Rx Instructions PO .COMPLEX #6 03/14/24 tabs ofloxacin 0.3 % ear drops 10 drp Ear-Left BID 7 days #5 mL 03/14/24 semaglutide 0.25 mg or 0.5 mg (2 0.25 mg (0.368 mL) SQ WEEKLY type 05/04/24 mg/3 mL) subcutaneous pen injector 2 diabetes #3 mL (Ozempic) metformin 500 mg tablet See Rx Instructions .Route 06/13/24 .COMPLEX #180 tabs metoprolol succinate 100 mg See Rx Instructions .Route 06/13/24 tablet,extended release 24 hr .COMPLEX #90 tabs lisinopril 40 mg tablet 40 mg PO DAILY #90 tabs 06/19/24 triamterene 37.5 See Rx Instructions .Route 06/19/24 mg-hydrochlorothiazide 25 mg tablet .COMPLEX #90 tabs Allergies Allergy/AdvReac Type Severity Reaction Status Date / Time Penicillins Allergy Unknown Verified 03/14/24 10:44 [facility] Disclaimer: The information contained in this section may have been updated after the patient was seen, as this information can be updated by other users. Medical History Bandemia without diagnosis of specific infection Rhinitis Bronchitis Allergic rhinitis Abnormal ECG Type 2 diabetes mellitus without complications Essential hypertension Hypertriglyceridemia History of kidney stones Fatigue Surgical History History of placement of ear tubes Family History Other Diabetes Hypertension Social History Smoking Status: Current every day smoker tobacco type: cigarettes packs per day: 1 second hand exposure: Yes alcohol intake: never substance use type: denies use current occupational status: employed Travel in the last 8 weeks?: None household members: spouse housing: house current occupation: [employer] caffeine: Yes Have you lived/traveled outside [place] in past 30 days?: No Contact w/someone who lives/traveled outside [place] past 30 days?: No Exposure to someone with infectious disease in past 14 days?: No Do you have a fever (greater than 100.4 F or 38 C)?: No Have you tested positive for COVID-19?: No Exposed to someone with COVID-19 in past 14 days?: No Do you have a sore throat?: No Do you have a cough?: No Do you have any weakness?: No Do you have any diarrhea?: No Are you experiencing any unusual bleeding?: No Do you have any muscle aches/pain?: No Do you have any abdominal pain?: No Are you experiencing loss of taste or smell?: No Other Medical History Have you received the Flu Vaccine for this season: No Have you received the Pneumonia Vaccine: No ROS Obtained: Yes All systems reviewed & no additional complaints except as documented Physical Exam General General appearance: alert, in no apparent distress and obese Head Head exam: atraumatic and normocephalic ENT ENT exam: Present normal exam and TM's normal bilaterally Neck Neck exam: Present full ROM; Absent tenderness Chest Chest inspection: Present normal inspection and symmetric chest wall rise Respiratory Respiratory exam: Present wheezes (Left upper lung); Absent respiratory distress or accessory muscle use Cardiovascular Cardiovascular exam: Present regular rate, normal rhythm and normal heart sounds Abdominal Exam Abdominal exam: Present soft; Absent tenderness Extremities Exam Extremities exam: Present full ROM (Pain past 90 degrees with left shoulder abduction) and tenderness Neurological Exam Neurological exam: Present alert and oriented X3 HEART Score HEART Score HEART Score assessment performed?: No Critical Care Critical Care Time Critical Care Time: No Medical Decision Making Medical Records Medical records reviewed: Yes I reviewed the patient's medical records. Ananda Inquiry Pt receiving controlled substance: No Vital Signs Vital Signs: 07/15/24 11:00 07/15/24 11:00 07/15/24 11:09 Temperature 97.8 F Temperature Source Oral Pulse Rate 81 77 Pulse Rate [Right Radial] 81 Respiratory Rate 18 Blood Pressure 156/88 H 135/78 Blood Pressure [Right Arm] 148/97 H Blood Pressure Mean [Right Arm] 114 Blood Pressure Source Blood Pressure Source [Right Arm] Manual Cuff/ Doppler Blood Pressure Position Blood Pressure Position [Right Arm] Sitting 02 Sat by Pulse Oximetry 98 98 97 Oxygen Delivery Method Room Air Room Air Room Air 07/15/24 11:14 07/15/24 11:30 07/15/24 12:00 Temperature Temperature Source Pulse Rate 81 74 73 Pulse Rate [Right Radial] Respiratory Rate 14 12 Blood Pressure 140/80 133/71 Blood Pressure [Right Arm] Blood Pressure Mean [Right Arm] Blood Pressure Source Blood Pressure Source [Right Arm] Blood Pressure Position Blood Pressure Position [Right Arm] 02 Sat by Pulse Oximetry 95 98 Oxygen Delivery Method Room Air 07/15/24 12:30 07/15/24 13:00 07/15/24 13:27 Temperature 98.2 F Temperature Source Oral Pulse Rate 74 72 70 Pulse Rate [Right Radial] Respiratory Rate 14 9 L 18 Blood Pressure 117/71 114/72 114/72 Blood Pressure [Right Arm] Blood Pressure Mean [Right Arm] Blood Pressure Source Automatic Cuff Blood Pressure Source [Right Arm] Blood Pressure Position Sitting Blood Pressure Position [Right Arm] 02 Sat by Pulse Oximetry 98 99 Oxygen Delivery Method Room Air Room Air Lab Data Lab results reviewed: Yes I reviewed the patient's lab results. Labs: Lab Results 07/15/24 11:05: WBC 8.7, RBC 5.23, Hgb 14.4, Hct 43.3, MCV 82.8, MCH 27.5, MCHC 33.3, RDW 13.4, Plt Count 213, MPV 9.9, Neut % (Auto) 68.8, Lymph % (Auto) 22.1, Banks % (Auto) 5.1, Eos % (Auto) 3.0, Baso % (Auto) 0.8, Neut # (Auto) 6.0, Lymph # (Auto) 1.9, Banks # (Auto) 0.4, Eos # (Auto) 0.3, Baso # (Auto) 0.1, Sodium 135 L, Potassium 4.2, Chloride 100, Carbon Dioxide 28, Anion Gap 11.2, BUN 21 H, Creatinine 1.10, Estimated Creat Clear 83, Estimated GFR 72, Est GFR ( Amer) 87, Glucose 131 H, Calcium 9.5, Magnesium 1.7, Total Bilirubin 0.4, AST 29, ALT 24, Alkaline Phosphatase 80, Troponin I < 0.01, Total Protein 7.5, Albumin 4.7, Globulin 2.8, Albumin/Globulin Ratio 1.7, HCV Ab ESAU w/Rflx PCR Qn Negative, HIV Ag/Ab Combo Qual Negative 07/15/24 11:05 07/15/24 11:05 Response Orders (Tests/Meds): ED MEDICATIONS Discontinued Medications Generic Name Dose Route Start Last Admin Trade Name Freq PRN Reason Stop Dose Admin Albuterol/Ipratropium 3 ml 07/15/24 11:26 07/15/24 11:35 Ipratropium/Albuterol 3 Ml Neb IH 07/15/24 11:27 3 ml ONCE ONE Administration ORDERS Category Date Time Status CXR 2 view (NOT portable) [XR chest 2V] Stat Exams 07/15/24 11:26 Completed CBC w/Auto Diff [Complete Blood Count Auto Diff] Stat Lab 07/15/24 11:05 Completed CMP [Comprehensive Metabolic Panel] Stat Lab 07/15/24 11:05 Completed HIV Combo Stat Lab 07/15/24 11:05 Completed Hepatitis C Ab Qual. W/ RFX Stat Lab 07/15/24 11:05 Completed Magnesium Stat Lab 07/15/24 11:05 Completed Troponin I Stat Lab 07/15/24 11:05 Completed ECG Data Tracing #1: Attestation: I reviewed this ECG and interpreted as documented below: ECG Narrative: Sinus rhythm at a rate of 80, no QTc prolongation, no significant ST elevation/depression or evidence of STEMI. MDM Narrative Medical Decision Narrative: In summary, this is a 48-year-old male presenting with left shoulder/chest pain. Differential diagnosis includes but is not limited to, pneumonia, viral URI, malignancy, ACS, PE, MSK strain, among others. Patient's exam is largely unremarkable aside from left apical wheezing and point tenderness of proximal deltoid with abduction of left shoulder. Patient's blood pressure is well-controlled without tachycardia or hypoxia on room air. Patient has no evidence of respiratory distress. Patient's medical history consists of diabetes on metformin, hypertension and tobacco use disorder. Patient has not been diagnosed with COPD, emphysema and does not take any respiratory medications. Patient does also lift heavy items for work. Patient evaluated with CBC, CMP, CXR, EKG, troponin. Patient treated with DuoNeb. Patient's laboratory evaluation was unremarkable and nonactionable. Initial troponin <0.01, will cancel repeat troponins as patient has low concern for ACS. Patient responded well to the DuoNeb and has no continued wheezing in the left lung yeung. On reevaluation of the patient, he has no further complaints. He states his symptoms have improved and he is ready to go home. We discussed smoking cessation and he felt that he would talk to his primary care provider about this. Patient was discharged with instructions for shoulder exercises and advised that his primary can set him up with physical therapy for his left shoulder. Due to patient's nature of work, it will be difficult to heal his shoulder. Patient agreement with this plan. Patient discharged in stable condition. Ruth West MD
[2024-07-15 12:09] LABS: Troponin I < 0.01 ng/ml (0.00-0.034)
[2024-07-15 13:24] LABS: HIV Combo NEGATIVE (Negative)
[2024-07-15 13:31] LABS: Hepatitis C Ab Qual. W/ RFX NEGATIVE (Negative)
== END 2024-07-15 13:27 | disposition home or self-care (01) ==
PROVIDERS: Emergency Provider Student in an Organized Health Care Education/Training Program; PCP Nurse Practitioner
DX: R06.2 Wheezing (principal); M25.512 Pain in left shoulder; I10 Essential (primary) hypertension; F17.210 Nicotine dependence, cigarettes, uncomplicated; R42 Dizziness and giddiness; Z11.59 Encounter for screening for other viral diseases; Z11.4 Encounter for screening for human immunodeficiency virus [HIV]
CPT/HCPCS: 71046; 80053; 83735; 84484; 85025; 86803; 87389; 93005; 99284

== ENCOUNTER 2024-10-11 11:49 | Emergency (ER) | payer OTHER, SELFPAY ==
[2024-10-11] VITALS (7 sets, daily range): BP systolic 122–162; BP diastolic 69–89; PULSE 73–88; RESP 12–17; TEMP 36.6–37.2; O2SAT 95–99; BMI 36.5
--- NOTE | 2024-10-11 12:07 | ECG_ITS ---
APPROVED REPORT Exam: Resting ECG HR:84 bpm ECG Measurements Heart Rate 84 AXES NC 165 P 44 QRSd 105 QRS 62 QT 358 T -7 QTc 399 Conclusion SINUS RHYTHM PROBABLE INFERIOR MYOCARDIAL INFARCTION , OF INDETERMINATE AGE [35 ms Q WAVE IN II/aVF] No STEMI Electronically signed by : GUICHO PONCE, 10/12/2024 06:40:58
--- NOTE | 2024-10-11 12:13 | ED_ITS ---
<Statement entered by Shakir Mckeon MD - 10/11/24 16:07> I consulted the JAMA, and we discussed the complexity of the problems being addressed. I approved the treatment and management plan for this patient's care in the emergency department, thus performing a substantial portion of the medical decision making. Shan Mckeon MD Discharge Plan Disposition Patient Disposition: Home, Self-Care Condition: Good Prescriptions Prescriptions: No Action (DME) Dexcom G7 Sensor Device See Rx Instructions .Route Qty: 1 0RF Rx Instructions: As directed (DME) Dexcom G7 Quality Assurance Supervisor Body Misc See Rx Instructions .Route Qty: 1 0RF Rx Instructions: As directed pantoprazole [Protonix] 40 mg tablet,delayed release (DR/EC) 40 mg PO DAILY Qty: 90 3RF ofloxacin 0.3 % drops 10 drp Ear-Left BID 7 Days Qty: 5 0RF aspirin [Adult Aspirin Regimen] 81 mg tablet,delayed release (DR/EC) 81 mg PO DAILY [employer]ics 45-3.75-50 mg tablet,chewable PO fluticasone propionate 50 mcg/actuation spray,suspension 1 spray intranasal DAILY Qty: 16 2RF Rx Instructions: administer into each nostril montelukast 10 mg tablet See Rx Instructions .ROUTE .COMPLEX Qty: 90 3RF Dose Instruction: TAKE 1 TABLET BY MOUTH EVERY DAY Rx Instructions: TAKE 1 TABLET BY MOUTH EVERY DAY cetirizine 10 mg tablet See Rx Instructions .ROUTE .COMPLEX Qty: 90 3RF Dose Instruction: TAKE 1 TABLET BY MOUTH EVERY DAY Rx Instructions: TAKE 1 TABLET BY MOUTH EVERY DAY Jardiance 25 mg tablet See Rx Instructions .ROUTE .COMPLEX Qty: 90 1RF Dose Instruction: TAKE 1 TABLET BY MOUTH EVERY DAY Rx Instructions: TAKE 1 TABLET BY MOUTH EVERY DAY Ozempic 0.25 mg or 0.5 mg (2 mg/3 mL) pen injector 0.25 mg SQ WEEKLY Qty: 3 4RF Rx Instructions: for 4 weeks metoprolol succinate 100 mg tablet extended release 24 hr See Rx Instructions .ROUTE .COMPLEX Qty: 90 0RF Dose Instruction: TAKE 1 TABLET BY MOUTH EVERY DAY FOR HYPERTENSION Rx Instructions: TAKE 1 TABLET BY MOUTH EVERY DAY FOR HYPERTENSION triamterene-hydrochlorothiazid 37.5-25 mg tablet See Rx Instructions .ROUTE .COMPLEX Qty: 90 1RF Dose Instruction: TAKE 1 TABLET BY MOUTH EVERY DAY Rx Instructions: TAKE 1 TABLET BY MOUTH EVERY DAY lisinopril 40 mg tablet 40 mg PO DAILY Qty: 90 1RF metformin 500 mg tablet See Rx Instructions .ROUTE .COMPLEX Qty: 180 0RF Dose Instruction: TAKE 1 TABLET BY MOUTH TWICE A DAY Rx Instructions: TAKE 1 TABLET BY MOUTH TWICE A DAY potassium chloride 20 MEQ tablet 20 meq PO DAILY Qty: 30 2RF Referrals Follow up/Referrals: Sophia Mac APRN [Primary Care Provider, Family Practice] - See instructions Activity Restrictions/Add. Instructions Additional Instructions/Restrictions: Please return to the emergency department with any worsening signs or symptoms, please continue take all your medication as prescribed. Follow-up with PCP and reject opener and filler. Clinical Impressions Clinical Impression: Postural dizziness with presyncope Print Language Print Language: Bangladeshi Discharge ED Provider: Shakir Mckeon Adult HPI General Chief complaint: Syncope Stated complaint: Fainted Time Seen by Provider: 10/11/24 11:56 Mode of Arrival: Ambulatory Source of Information: Patient Description of Symptoms (Recalled from ER Triage Doc. by RN): Patient states about 1135 today that he was walking back after lunch at work and felt like he was going to pass out Patient denies actual syncope and states he ate breakfast and lunch today. Denies any previous similar episodes. History of Present Illness HPI narrative: 49 year old male presents to the ED with complaints of a presyncopal episode that occured around 11AM today. He states that he was walking with a coworkers when he suddenly felt like he was going to pass out. He denies falling to the ground, LOC, hitting is head, chest pain, SOA, dizziness, diaphoresis, fever, cough, numbness/tingling, headache, weakness. He has a PMH of HTN, GERD, JERMAIN, and diabetes, he states he checks his BP every morning and night. He states he smokes cigarettes, no alcohol or illicit drug use, is currenly on suboxone. Initial triage vitals were unremarkable. Please note that above description of symptoms, in this electronic medical record under categorization of recalled from ER triage doctor by RN are reflective of an initial nursing assessment, however, is not reflective of my full history and physical exam that was personally taken and clarified. Consequentially, this preceding description of symptoms, which may include the patient's categorized chief complaint in the EMR, do not reflect my personal clinical impression, and the ultimate description of history of present illness and patient stated complaints should be deferred to this section of the note. Unless stated otherwise or congruent with this section of the note, additional signs, symptoms, or incongruence should be interpreted as inaccurate with my clinical impression. Onset (ago): hour(s) Related Data Home Medications ?Medication ?Instructions ?Recorded ?Confirmed aspirin 81 mg tablet,delayed 81 mg PO DAILY 05/20/23 0 09/07/24 release (Adult Aspirin Regimen) vitamin C 45 mg-zinc citrate 3.75 tab PO 05/20/23 07/0 3/25 mg-elderberry 50 mg chewable tablet ([employer]) Previous Rx's ?Medication ?Instructions ?Recorded potassium chloride 20 mEq 20 meq PO DAILY #30 tabs 06/26 tablet,extended release(part/cryst) fluticasone propionate 50 1 spray intranasal DAILY #16 grams 12/29/23 mcg/actuation nasal spray,suspension blood-glucose sensor (Dexcom G7 #1 ea 01/04/24 Sensor device) blood-glucose,skid road worker,cont #1 ea 01/04/24 (Dexcom G7 Quality Assurance Supervisor Body) pantoprazole 40 mg tablet,delayed 40 mg PO DAILY #90 t abs 01/07/24 release (Protonix) cetirizine 10 mg tablet See Rx Instructions .Route 1 04/18/23 .COMPLEX #90 tabs empagliflozin 25 mg tablet See Rx Instructions .Route 02/16/24 (Jardiance) .COMPLEX #90 tabs montelukast 10 mg tablet See Rx Instructions .Route 1 04/18/23 .COMPLEX #90 tabs ofloxacin 0.3 % ear drops 10 drp Ear-Left BID 7 days # 5 mL 03/14/24 semaglutide 0.25 mg or 0.5 mg (2 0.25 mg (0.368 mL) SQ WEEKLY type 05/04/24 mg/3 mL) subcutaneous pen injector 2 diabetes #3 mL (Ozempic) metoprolol succinate 100 mg See Rx Instructions .Route 06/13/24 tablet,extended release 24 hr .COMPLEX #90 tabs lisinopril 40 mg tablet 40 mg PO DAILY #90 tabs 06/06 06/30 triamterene 37.5 See Rx Instructions .Route 0 06/19/24 mg-hydrochlorothiazide 25 mg tablet .COMPLEX #90 tabs metformin 500 mg tablet See Rx Instructions .Route 0 09/11/24 .COMPLEX #180 tabs Allergies Allergy/AdvReac Type Severity Reaction Status Date / Time Penicillins Allergy Unknown Verified 09/07/24 08:48 [facility] Disclaimer: The information contained in this section may have been updated after the patient was seen, as this information can be updated by other users. Medical History (Updated 10/11/24 @ 14:39 by SEB Rodriguez) Heartburn Palpitations Bandemia without diagnosis of specific infection Rhinitis Bronchitis Allergic rhinitis Abnormal ECG Type 2 diabetes mellitus without complications Essential hypertension Hypertriglyceridemia History of kidney stones Fatigue Surgical History History of placement of ear tubes Family History Other Diabetes Hypertension Social History Smoking Status: Current every day smoker tobacco type: cigarettes packs per day: 1 second hand exposure: Yes alcohol intake: never substance use type: denies use current occupational status: employed Travel in the last 8 weeks?: None household members: spouse housing: house current occupation: [employer] caffeine: Yes Have you lived/traveled outside [place] in past 30 days?: No Contact w/someone who lives/traveled outside US past 30 days?: No Exposure to someone with infectious disease in past 14 days?: No Do you have a fever (greater than 100.4 F or 38 C)?: No Have you tested positive for COVID-19?: No Exposed to someone with COVID-19 in past 14 days?: No Do you have a sore throat?: No Do you have a cough?: No Do you have any weakness?: No Do you have any diarrhea?: No Are you experiencing any unusual bleeding?: No Do you have any muscle aches/pain?: No Do you have any abdominal pain?: No Are you experiencing loss of taste or smell?: No Other Medical History Have you received the Flu Vaccine for this season: No Have you received the Pneumonia Vaccine: No ROS Obtained: Yes All systems reviewed & no additional complaints except as documented Physical Exam General General appearance: alert and in no apparent distress Head Head exam: atraumatic and normocephalic Eye Eye exam: Present PERRL and EOMI ENT ENT exam: Present mucous membranes moist Neck Neck exam: Present normal inspection Chest Chest inspection: Present normal inspection and symmetric chest wall rise Respiratory Respiratory exam: Present normal lung sounds bilaterally; Absent respiratory distress Cardiovascular Cardiovascular exam: Present regular rate and normal rhythm Abdominal Exam Abdominal exam: Present soft; Absent tenderness, guarding or rebound Extremities Exam Extremities exam: Present normal inspection Neurological Exam Neurological exam: Present alert and oriented X3 Psychiatric Psychiatric exam: Present normal affect Skin Skin exam: Present warm and dry Medical Decision Making Medical Records Medical records reviewed: Yes I reviewed the patient's medical records. Screening: Per USPSTF and CDC recommendations, given the prevalence of disease in our region, it is our hospital?s policy to screen for HIV and viral Hepatitis for all patients aged 18 and over and those with ongoing risk factors. Ananda Inquiry Pt receiving controlled substance: No Ananda was queried for this patient: No Vital Signs: 10/11/24 11:57 10/11/24 12:39 10/11/24 14:23 Temperature 98.9 F Temperature Source Oral Pulse Rate [Left Brachial] 88 Pulse Rate [Orthostatic Sitting] 80 80 Pulse Rate [Orthostatic Standing] 84 81 Respiratory Rate 17 Blood Pressure [Left Arm] 162/86 H Blood Pressure [Orthostatic Sitting Left Arm] 135/76 142/80 H Blood Pressure [Orthostatic Standing Left Arm] 160/89 H 141/75 H Blood Pressure Mean [Left Arm] 111 Blood Pressure Source [Left Arm] Automatic Cuff Blood Pressure Position [Left Arm] Sitting 02 Sat by Pulse Oximetry 95 Oxygen Delivery Method Room Air Lab Data Lab results reviewed: Yes I reviewed the patient's lab results. Lab Results 10/11/24 12:35: WBC 11.7 H, RBC 4.97, Hgb 13.8 L, Hct 40.9 L, MCV 82.3, MCH 27.8, MCHC 33.7, RDW 14.1, Plt Count 213, MPV 9.8, Neut % (Auto) 68.0, Lymph % (Auto) 22.6, [place] % (Auto) 6.2, Eos % (Auto) 2.5, Baso % (Auto) 0.3, Neut # (Auto) 7.9 H, Lymph # (Auto) 2.6, [place] # (Auto) 0.7, Eos # (Auto) 0.3, Baso # (Auto) 0.0, Sodium 134 L, Potassium 4.3, Chloride 101, Carbon Dioxide 27, Anion Gap 10.3, BUN 23 H, Creatinine 1.20, Estimated Creat Clear 116, Estimated GFR 65, Est GFR ( Amer) 78, Glucose 104 H, Calcium 9.5, Magnesium 1.7, Total Bilirubin 0.3, AST 28, ALT 21, Alkaline Phosphatase 78, Troponin I < 0.01, NT-Pro-B Natriuret Pep 28.8, Total Protein 7.7, Albumin 4.7, Globulin 3.0, Albumin/Globulin Ratio 1.6 10/11/24 12:35 10/11/24 12:35 Orders (Tests/Meds): ED MEDICATIONS Generic Name Dose Route Start Last Admin Trade Name Freq PRN Reason Stop Dose Admin Sodium Chloride 1,000 mls @ 500 mls/hr 10/11/24 13:27 10/11/24 14:17 Sod Chlor 0.9% 1000ml Bag IV 10/11/24 15:26 500 mls/hr .Q2H ONE Administration ORDERS Category Date Time Status Complete Blood Count Auto Diff Stat Lab 10/11/24 12:35 Completed Comprehensive Metabolic Panel Stat Lab 10/11/24 12:35 Completed Magnesium Stat Lab 10/11/24 12:35 Completed NT Pro Brain Natriuretic Pep. Stat Lab 10/11/24 12:35 Completed Troponin I Q3H Lab 10/11/24 15:15 Ordered Troponin I Q3H Lab 10/11/24 18:15 Ordered Troponin I Stat Lab 10/11/24 12:35 Completed Medical Decision Narrative: 49-year-old male presents emergency department with a presyncopal episode that occurred just prior to arrival, differential diagnose include but not limited to, postural syncope, orthostatic syncope, cardiogenic syncope, vasovagal syncope, situational syncope, cardiac arrhythmia, electrolyte disturbance among others. I discussed this patient's case with the attending physician , he saw and examined the patient as well. Will obtain basic laboratory studies, magnesium level, orthostatic vital signs, EKG, troponin and proBNP. CBC noted for mild leukocytosis 11.7 CMP is notable for mild hyponatremia 134, BUN is mildly elevated 23, otherwise unremarkable. Initial troponin is within normal limits at less than 0.01, proBNP within normal limits. Positive orthostatic vital signs, patient's sitting blood pressure was 160 systolic, when upon standing it dropped to 135, will give 500 mL of IV NS. Repeat orthostatic vital signs within normal limits, patient received 500 mL liter IV NS, patient is currently symptom-free, most likely posterior orthostatic/posterior syncope being the causation of the patient's symptoms, patient was given strict ED return precautions, follow-up with reject opener and filler and PCP in the upcoming days/weeks. Patient has no other acute complaints is remained hemodynamically stable at his time in the emergency department. Patient voiced understanding and agreed with current treatment plan/discharge plan. Critical Care Critical Care Time Critical Care Time: No
[2024-10-11 12:42] LABS: Hematocrit 40.9 % (42.0-52.0); Hemoglobin 13.8 g/dL (14.1-18.0); Immature Granulocytes % 0.4 %; Mean Corpuscular HGB Conc 33.7 g/dL (31.8-35.4); Mean Corpuscular Hemoglobin 27.8 pg (27.0-31.2); Mean Corpuscular Volume 82.3 fl (80-94); Nucleated Red Blood Cells % 0 %; Platelet Count 213 K/mm3 (142-424); Red Blood Count 4.97 M/mm3 (4.60-6.20); Red Cell Distribution Width-SD 42.0 fL; White Blood Count 11.7 K/mm3 (4.8-10.8)
[2024-10-11 12:52] LABS: Albumin Level 4.7 g/dl (3.5-5.0); Chloride 101 mmol/L (98-107); Potassium 4.3 mmoL/L (3.5-5.1); Sodium 134 mmol/L (136-145)
[2024-10-11 12:55] LABS: Alanine Aminotransferase 21 U/L (12-78); Albumin/Globulin Ratio 1.6 (1.1-1.8); Alkaline Phosphatase 78 U/L (38-126); Anion Gap 10.3 mEq/L (5-15); Aspartate Amino Transferase 28 U/L (17-59); Bilirubin,Total 0.3 mg/dl (0.2-1.3); Blood Urea Nitrogen 23 mg/dl (9-20); Calcium 9.5 mg/dl (8.4-10.2); Carbon Dioxide 27 mmol/L (22.0-30.0); Creatinine Clearance Estimated 116 mL/min (50-200); Creatinine,Serum 1.20 mg/dl (0.66-1.25); Estimated Glomerular Filt Rate 65 ml/min (>60); GFR (African American) 78 ML/MIN (>60); Globulin 3.0 g/dL (1.3-3.2); Glucose 104 mg/dl (74-100); Magnesium 1.7 mg/dl (1.6-2.3); Total Protein,Serum 7.7 g/dl (6.3-8.2)
[2024-10-11 13:08] LABS: NT Pro Brain Natriuretic Pep. 28.8 pg/mL (0-125)
[2024-10-11 13:24] LABS: Troponin I < 0.01 ng/ml (0.00-0.034)
[2024-10-11] MEDS: 0.9 % SODIUM CHLORIDE 1000ML 1,000 ML 500 ML IV (14:17)
== END 2024-10-11 14:56 | disposition home or self-care (01) ==
PROVIDERS: Physician Assistant; Emergency Provider Student in an Organized Health Care Education/Training Program; PCP Nurse Practitioner
DX: R55 Syncope and collapse (principal); R42 Dizziness and giddiness; F17.210 Nicotine dependence, cigarettes, uncomplicated; E11.9 Type 2 diabetes mellitus without complications; I10 Essential (primary) hypertension
CPT/HCPCS: 80053; 83735; 83880; 84484; 85025; 93005; 96360; 99284; J7030

== ENCOUNTER 2024-10-16 16:13 | Outpatient (CLI) | payer OTHER, SELFPAY ==
[2024-10-16 19:34] LABS: Hematocrit 42.2 % (42.0-52.0); Hemoglobin 13.6 g/dL (14.1-18.0); Immature Granulocytes % 0.3 %; Mean Corpuscular HGB Conc 32.2 g/dL (31.8-35.4); Mean Corpuscular Hemoglobin 27.1 pg (27.0-31.2); Mean Corpuscular Volume 84.2 fl (80-94); Nucleated Red Blood Cells % 0 %; Platelet Count 220 K/mm3 (142-424); Red Blood Count 5.01 M/mm3 (4.60-6.20); Red Cell Distribution Width-SD 44.6 fL; White Blood Count 10.4 K/mm3 (4.8-10.8)
[2024-10-16 20:19] LABS: Anion Gap 12.3 mEq/L (5-15); Blood Urea Nitrogen 18 mg/dl (9-20); Calcium 9.5 mg/dl (8.4-10.2); Carbon Dioxide 27 mmol/L (22.0-30.0); Chloride 102 mmol/L (98-107); Creatinine,Serum 1.00 mg/dl (0.66-1.25); Estimated Glomerular Filt Rate 80 ml/min (>60); GFR (African American) 97 ML/MIN (>60); Glucose 81 mg/dl (74-100); Potassium 4.3 mmoL/L (3.5-5.1); Sodium 137 mmol/L (136-145)
[2024-10-16 20:50] LABS: Thyroid Stimulating Hormone 1.67 uIU/mL (0.465-4.68)
[2024-10-16 21:46] LABS: Hemoglobin A1C 5.6 % (4.0-6.0)
--- OUTSIDE RECORDS SUMMARY | 2024-10-17 11:19 | XMS_ITS | Clinical Summary ---
Author Organization [facility] Address [address] [place] [phone] Phone Care Team Providers Care Install And Repair Technician Name Role Phone Unavailable Primary Care Provider Unavailabl e Allergies No known active allergies Medications aspirin 81 mg Oral Tablet, Delayed Release (E.C.) Take 81 mg by mouth daily. Active pantoprazole (PROTONIX) 40 mg Oral Tablet, Delayed Release (E.C.)Indications :Gastroesophageal reflux disease with esophagitis Take 1 Tab by mouth daily. 30 Tab 2 04/13/2018 Active metoprolol tartrate 75 mg Oral Tablet Take 1 Tab by mouth 2 times daily. 01/06/2020 Active ibuprofen (ADVIL;MOTRIN) 800 mg Oral TabletIndications :Right foot pain Take 1 Tab by mouth every 8 hours as needed for Pain. 90 Tab 2 06/11/2020 Active hydroCHLOROthiazi de (HYDRODIURIL) 25 mg Oral TabletIndications :Essential hypertension TAKE 1 TABLET BY MOUTH EVERY DAY 15 Tablet 06/24/2021 Active metoprolol succinate ER (TOPROL-XL) 100 mg Oral Tablet Sustained Release 24 hrIndications:Ess ential hypertension TAKE 1 TABLET BY MOUTH EVERY DAY 15 Tablet 06/24/2021 Active Active Problems Problem Noted Date Diagnosed Date Personal history of nicotine dependence 06/12/19 21 Essential hypertension 11/05/2017 Overview (10/14/2018): BP Readings from Last 3 Encounters: 10/14/18 (!) 150/100 11/05/17 130/80 On Toprol BID and Cozaar. Has not taken todaty. Assessment & Plan (10/14/2018 3:26 PM EDT): Encouraged medication compliance with followup for recheck. Assessment & Plan (11/05/2017 6:01 PM EDT): His blood pressure appears under much better control today. I encouraged him to continue with the healthy lifestyle recommendations made to [facility].He should get a sleep study done a stress test. He needs to quit smoking and we did discuss smoking cessation today. We discussed weight loss and exercise. We discussed normal blood pressure parameters and what parameters she should call the doctor for. We discussed his current medications and potential side effects. Gastroesophageal reflux disease with esophagitis 11/05/2017 Immunizations Immunization Administration Dates Next Due Influenza Vaccine Quadrivalent 12/20/2019 Surgical History Surgery Date Site/Laterality Comments EAR SURGERY KIDNEY SURGERY Medical History Medical History Date Comments Kidney stone Vocal cord polyps Family History Medical History Relation Name Comments Alcohol Abuse Father Seizures Father COPD Mother Diabetes Mother Relation Name Status Comments Father Mother Alive Social History Tobacco Use Types Packs/Day Years Used Date Smoking Tobacco: Every Day Cigarettes 1 30 Smokeless Tobacco: Never Alcohol Use Standard Drinks/Week Comments No 0 (1 standard drink = 0.6 oz pur e alcohol) PHQ-2 Answer Date Recorded PHQ-2 Score 0 07/28/2018 Sexually Active Control Partners Comments Yes Female Sex and Gender Information Value Date Recorded Sex Assigned at Not on file Legal Sex Male 10:47 AM EDT Gender Identity Not on file Sexual Orientation Not on file Obstetrics History Last Filed Vital Signs Vital Sign Reading Time Taken Comments Blood Pressure 150/98 06/11/2020 5:08 PM EDT Pulse 80 06/11/2020 4:13 PM EDT Temperature 36.6 C (97.8 F) 06/11/2020 4:13 PM EDT Respiratory Rate 16 06/11/2020 4:13 PM EDT Oxygen Saturation 97% 06/11/2020 4:13 PM EDT Inhaled Oxygen Concentration - - Weight 121.6 kg (268 lb) 06/11/2020 4:13 PM EDT Height 172.7 cm (5' 8 ) 10/14/2018 2:57 PM EDT Body Mass Index 40.75 10/14/2018 2:57 PM EDT Plan of Treatment Health Maintenance Due Date Last Done Comments Annual Wellness Exam 08/15/1979 DTaP/TDaP/Td (1 - Tdap) 08/15/1995 Hepatitis B Vaccine (1 of 3 - 19+ 3-dose series) 08/15/1995 Cologuard 2021 Colon Cancer Screening 2021 Colonoscopy 2021 FIT 2021 Sigmoidoscopy 2021 Virtual Colonography 2021 COVID-19 Vaccine (1 - 2023-2 5 season) 2023 Influenza Vaccine (#1) 2024 12/20/2019 Meningococcal B Vaccine Aged Out No l onger eligible based on patient's age to complete this topic Pneumococcal Vaccine 0-49 Aged Out No longer eligible based on patient's age to complete this topic Goals Goal Patient Goal Type Associated Problems Recent Progress Patient-Stated? Author Blood Pressure < 140/90 Blood Pressure 150/98(2020 5:08 PM EDT) No Dusty Burt MD Maintain a healthy diet, exercise regularly and maintain an ideal body weight General No Dusty Burt MD Stay Tobacco Free Lifestyle No Dusty Burt MD Insurance
== END 2024-10-16 23:59 | disposition home or self-care (01) ==
LOC: LAB.DROPOF 10-17 11:16
PROVIDERS: PCP Nurse Practitioner; Visit Provider Nurse Practitioner
DX: E11.9 Type 2 diabetes mellitus without complications (principal); I10 Essential (primary) hypertension; E78.1 Pure hyperglyceridemia
CPT/HCPCS: 80048; 83036; 84443; 85025

== ENCOUNTER 2024-11-01 16:00 | Outpatient (CLI) | payer OTHER, SELFPAY ==
[2024-11-01 20:16] LABS: Coronavirus 19, PCR Not Detected (NotDetected); Influenza A, PCR Not Detected (NotDetected); Influenza B, PCR Not Detected (NotDetected)
--- OUTSIDE RECORDS SUMMARY | 2024-11-02 13:15 | XMS_ITS | Clinical Summary ---
Author Organization [facility] Address [address] [place] [phone] Phone Care Team Providers Care Welding Robot Operator Name Role Phone Unavailable Primary Care Provider [...] the healthy lifestyle recommendations made to [facility].He should get a sleep study done a [...]
== END 2024-11-01 23:59 | disposition home or self-care (01) ==
LOC: LAB.DROPOF 11-02 13:12
PROVIDERS: PCP Nurse Practitioner; Visit Provider Nurse Practitioner
DX: J06.9 Acute upper respiratory infection, unspecified (principal)
CPT/HCPCS: 87636

== ENCOUNTER 2024-11-07 09:14 | Emergency (ER) | payer OTHER, SELFPAY ==
[2024-11-07 09:23] VITALS: BP 147/91; PULSE 84; RESP 17; TEMP 36.8; O2SAT 99; BMI 37.2
--- NOTE | 2024-11-07 09:24 | ECG_ITS ---
APPROVED REPORT Exam: Resting ECG HR:80 bpm ECG Measurements Heart Rate 80 AXES AK 165 P 58 QRSd 109 QRS 75 QT 354 T -8 QTc 390 Conclusion SINUS RHYTHM INFERIOR MYOCARDIAL INFARCTION , OF INDETERMINATE AGE [40+ ms Q WAVE AND/OR ST/T ABNORMALITY IN II/aVF] ABNORMAL ECG UNCONFIRMED REPORT Electronically signed by : Wiley Stephen, 11/09/2024 15:31:00
[2024-11-07 09:30] VITALS: BP 126/81; PULSE 85; O2SAT 96
--- OUTSIDE RECORDS SUMMARY | 2024-11-07 09:42 | XMS_ITS | Clinical Summary ---
Author Organization [facility] Address [address] [place] [phone] Phone Care Team Providers Care Slab Depiler Operator Name Role Phone Unavailable Primary Care [...] with the healthy lifestyle recommendations made to [facility].He should get a sleep study done [...]
--- NOTE | 2024-11-07 09:57 | ED_ITS ---
<Statement entered by Johnnie Stephen MD - 11/07/24 15:20> I was consulted by the JAMA, and we discussed the complexity of the problems being addressed. I approved the treatment and management plan for this patient's care in the emergency department, thus performing a substantive portion of the medical decision making. Johnnie Stephen MD, HERI, FACEP Discharge Plan Disposition Patient Disposition: Home, Self-Care Condition: Good Prescriptions Prescriptions: New meclizine 50 mg tablet 50 mg PO DAILY PRN (Reason: motion sickness) Qty: 14 0RF No Action (DME) Dexcom G7 Sensor Device See Rx Instructions .Route Qty: 1 0RF Rx Instructions: As directed (DME) Dexcom G7 Tufter Misc See Rx Instructions .Route Qty: 1 0RF Rx Instructions: As directed pantoprazole [Protonix] 40 mg tablet,delayed release (DR/EC) 40 mg PO BID doxycycline hyclate 100 mg tablet 100 mg PO BID Qty: 20 0RF fluticasone propionate 50 mcg/actuation spray,suspension 1 spray intranasal DAILY Qty: 48 3RF Rx Instructions: administer into each nostril eqekawvz-bfnnfczhv-EJ 3.5-10,000-1 mg/mL-unit/mL-% drops,suspension 4 drp Ear-Both TID 7 Days Qty: 10 0RF aspirin [Adult Aspirin Regimen] 81 mg tablet,delayed release (DR/EC) 81 mg PO DAILY Faraday 45-3.75-50 mg tablet,chewable 1 tab PO DAILY lisinopril 40 mg tablet 40 mg PO DAILY Qty: 90 1RF Ozempic 0.25 mg or 0.5 mg (2 mg/3 mL) pen injector 0.25 mg SQ WEEKLY Qty: 3 4RF Rx Instructions: for 4 weeks potassium chloride 20 MEQ tablet 20 meq PO DAILY Qty: 30 2RF metformin 500 mg tablet 500 mg PO BID cetirizine 10 mg tablet 10 mg PO DAILY metoprolol succinate 100 mg tablet extended release 24 hr 100 mg PO DAILY triamterene-hydrochlorothiazid 37.5-25 mg tablet 1 tab PO DAILY montelukast 10 mg tablet 10 mg PO DAILY Jardiance 25 mg tablet 25 mg PO DAILY Rx Instructions: TAKE 1 TABLET BY MOUTH EVERY DAY Referrals Follow up/Referrals: Sophia Mac APRN [Primary Care Provider, Family Practice] - See instructions Activity Restrictions/Add. Instructions Additional Instructions/Restrictions: Please return to the emergency department with any worsening signs or symptoms, please take your medicine as prescribed, please follow-up with your PCP and ear nose throat doctor in the upcoming days. Clinical Impressions Clinical Impression: Positional lightheadedness Instructions Patient Instructions: DI for Vertigo Print Language Print Language: Turkmen Discharge ED Provider: Johnnie Stephen General Adult HPI General Chief complaint: Dizziness Stated complaint: Lightheaded and off balance Time Seen by Provider: 11/07/24 09:56 Mode of Arrival: Ambulatory Source of Information: Patient Description of Symptoms (Recalled from ER Triage Doc. by RN): pt presents to the ED with dizziness. pt reports that he has been lightheaded for the past month and was seen by his PCP with fluid on his ears and had a ear infection. Denies ear pain. Pt is currently taking antibiotics at this time but is unsure the name. Denies chest pain and shortness of breath. History of Present Illness HPI narrative: 49-year-old male presents to the emergency department with lightheadedness, denies any true vertiginous type symptoms. Patient states he has been having having the symptoms for 1 month, intermittently, he has been treated by his eardrops, as well as Flonase , patient is slated to see ear nose throat doctor in the upcoming weeks, was recently seen by PCP last , started on additional round of antibiotics, patient states that his PCP stated that he had fluid , behind his ears, he initially did receive some benefit from these therapies, but his symptoms persisted. Patient denies any fever chills chest pain shortness of breath, admits to nausea no vomiting no abdominal pain no constipation no diarrhea no urinary type symptomatology, patient is a current everyday smoker, denies any alcohol or drug use, initial triage vitals are unremarkable, other past medical history is consistent with T2DM, hypertension, hyperlipidemia, multiple tympanostomy tubes as an adult and child. Please note that above description of symptoms, in this electronic medical record under categorization of recalled from ER triage doctor by RN are reflective of an initial nursing assessment, however, is not reflective of my full history and physical exam that was personally taken and clarified. Consequentially, this preceding description of symptoms, which may include the patient's categorized chief complaint in the EMR, do not reflect my personal clinical impression, and the ultimate description of history of present illness and patient stated complaints should be deferred to this section of the note. Unless stated otherwise or congruent with this section of the note, additional signs, symptoms, or incongruence should be interpreted as inaccurate with my clinical impression. Onset (ago): month(s) Related Data Home Medications ?Medication ?Instructions ?Recorded ?Confirmed aspirin 81 mg tablet,delayed 81 mg PO DAILY 05/20/23 0 11/07/24 release (Adult Aspirin Regimen) vitamin C 45 mg-zinc citrate 3.75 1 tab PO DAILY 05/1911/07/24 mg-elderberry 50 mg chewable tablet (Faraday) pantoprazole 40 mg tablet,delayed 40 mg PO BID 5 11/07/24 release (Protonix) cetirizine 10 mg tablet 10 mg PO DAILY 11/07/2405/02 empagliflozin 25 mg tablet 25 mg PO DAILY 11/07/2405/02 (Jardiance) metformin 500 mg tablet 500 mg PO BID 11/07/2411/07 metoprolol succinate 100 mg 100 mg PO DAILY 11/07/24 0 11/07/24 tablet,extended release 24 hr montelukast 10 mg tablet 10 mg PO DAILY 11/07/2405/02 triamterene 37.5 1 tab PO DAILY 11/07/2405/02 mg-hydrochlorothiazide 25 mg tablet Previous Rx's ?Medication ?Instructions ?Recorded potassium chloride 20 mEq 20 meq PO DAILY #30 tabs 06/26 tablet,extended release(part/cryst) blood-glucose sensor (Dexcom G7 #1 ea 01/04/24 Sensor device) blood-glucose,business objects architect,cont #1 ea 01/04/24 (Dexcom G7 Tufter) lisinopril 40 mg tablet 40 mg PO DAILY #90 tabs 06/06 06/30 semaglutide 0.25 mg or 0.5 mg (2 0.25 mg (0.368 mL) SQ WEEKLY type 10/25/24 mg/3 mL) subcutaneous pen injector 2 diabetes #3 mL (Ozempic) doxycycline hyclate 100 mg tablet 100 mg PO BID #20 ta bs 11/01/24 fluticasone propionate 50 1 spray intranasal DAILY #48 grams 11/01/24 mcg/actuation nasal spray,suspension yuupvlnz-ulziwlpxa-kwcifuqrr 3.5 4 drp Ear-Both TID 7 days #10 mL 11/01/24 mg-10,000 unit/mL-1 % ear drops,susp meclizine 50 mg tablet 50 mg PO DAILY PRN motion si ckness 11/07/24 #14 tabs Allergies Allergy/AdvReac Type Severity Reaction Status Date / Time No Known Allergies Allergy Verified 11/07/24 09:47 [facility] [place] Disclaimer: The information contained in this section may have been updated after the patient was seen, as this information can be updated by other users. Medical History Heartburn Palpitations Bandemia without diagnosis of specific infection Rhinitis Bronchitis Allergic rhinitis Abnormal ECG Type 2 diabetes mellitus without complications Essential hypertension Hypertriglyceridemia History of kidney stones Fatigue Surgical History History of placement of ear tubes Family History Other Diabetes Hypertension Social History Smoking Status: Current every day smoker tobacco type: cigarettes packs per day: 1 second hand exposure: Yes alcohol intake: never substance use type: denies use current occupational status: employed Travel in the last 8 weeks?: None household members: spouse housing: house current occupation: [employer] caffeine: Yes Have you lived/traveled outside [place] in past 30 days?: No Contact w/someone who lives/traveled outside [place] past 30 days?: No Exposure to someone with infectious disease in past 14 days?: No Do you have a fever (greater than 100.4 F or 38 C)?: No Have you tested positive for COVID-19?: No Exposed to someone with COVID-19 in past 14 days?: No Do you have a sore throat?: No Do you have a cough?: No Do you have any weakness?: Yes Do you have any diarrhea?: No Are you experiencing any unusual bleeding?: No Do you have any muscle aches/pain?: No Do you have any abdominal pain?: No Are you experiencing loss of taste or smell?: No Other Medical History Have you received the Flu Vaccine for this season: No Have you received the Pneumonia Vaccine: No ROS Obtained: Yes All systems reviewed & no additional complaints except as documented Physical Exam General General appearance: alert and in no apparent distress Head Head exam: atraumatic and normocephalic Eye Eye exam: Present PERRL and EOMI; Absent nystagmus ENT ENT exam: Present mucous membranes moist Neck Neck exam: Present normal inspection Chest Chest inspection: Present normal inspection and symmetric chest wall rise Respiratory Respiratory exam: Present normal lung sounds bilaterally; Absent respiratory distress Cardiovascular Cardiovascular exam: Present regular rate and normal rhythm Abdominal Exam Abdominal exam: Present soft; Absent tenderness, guarding or rebound Extremities Exam Extremities exam: Present normal inspection Neurological Exam Neurological exam: Present alert and oriented X3 Psychiatric Psychiatric exam: Present normal affect Skin Skin exam: Present warm and dry Medical Decision Making Medical Records Medical records reviewed: Yes I reviewed the patient's medical records. Screening: Per USPSTF and CDC recommendations, given the prevalence of disease in our region, it is our hospital?s policy to screen for HIV and viral Hepatitis for all patients aged 18 and over and those with ongoing risk factors. Ananda Inquiry Pt receiving controlled substance: No Ananda was queried for this patient: No Vital Signs: 11/07/24 09:23 11/07/24 09:23 11/07/24 09:30 Temperature 98.3 F 98.3 F Temperature Source Oral Oral Pulse Rate 84 85 Pulse Rate [Orthostatic Lying] Pulse Rate [Orthostatic Sitting] Pulse Rate [Orthostatic Standing] Pulse Rate [Right] 84 Respiratory Rate 17 17 Blood Pressure 147/91 H 126/81 Blood Pressure [Orthostatic Lying] Blood Pressure [Orthostatic Sitting] Blood Pressure [Orthostatic Standing] Blood Pressure [Right Arm] 147/91 H Blood Pressure Mean [Right Arm] 109 Blood Pressure Source Automatic Cuff Blood Pressure Source [Right Arm] Automatic Cuff Blood Pressure Position Supine Blood Pressure Position [Right Arm] Supine 02 Sat by Pulse Oximetry 99 99 96 Oxygen Delivery Method Room Air Room Air 11/07/24 10:27 Temperature Temperature Source Pulse Rate Pulse Rate [Orthostatic Lying] 76 Pulse Rate [Orthostatic Sitting] 77 Pulse Rate [Orthostatic Standing] 80 Pulse Rate [Right] Respiratory Rate Blood Pressure Blood Pressure [Orthostatic Lying] 114/77 Blood Pressure [Orthostatic Sitting] 136/88 Blood Pressure [Orthostatic Standing] 132/83 Blood Pressure [Right Arm] Blood Pressure Mean [Right Arm] Blood Pressure Source Blood Pressure Source [Right Arm] Blood Pressure Position Blood Pressure Position [Right Arm] 02 Sat by Pulse Oximetry Oxygen Delivery Method Lab Data Lab results reviewed: Yes I reviewed the patient's lab results. Lab Results 11/07/24 09:49: POC Glucose 124 H 11/07/24 09:55: WBC 11.2 H, RBC 5.62, Hgb 15.2, Hct 46.8, MCV 83.3, MCH 27.0, MCHC 32.5, RDW 14.1, Plt Count 244, MPV 9.8, Neut % (Auto) 68.9, Lymph % (Auto) 22.7, [place] % (Auto) 5.4, Eos % (Auto) 2.4, Baso % (Auto) 0.4, Neut # (Auto) 7.7, Lymph # (Auto) 2.5, [place] # (Auto) 0.6, Eos # (Auto) 0.3, Baso # (Auto) 0.0, Sodium 138, Potassium 4.5, Chloride 104, Carbon Dioxide 26, Anion Gap 12.5, BUN 31 H, Creatinine 1.40 H, Estimated Creat Clear 101, Estimated GFR 54 L, Est GFR ( Amer) 65, Glucose 116 H, Calcium 10.2, Magnesium 1.4 L, Total Bilirubin 0.4, AST 26, ALT 16, Alkaline Phosphatase 73, Troponin I < 0.01, Total Protein 8.2, Albumin 4.9, Globulin 3.3 H, Albumin/Globulin Ratio 1.5, TSH 1.39, Thyroxine (T4) 10.5 11/07/24 09:55 11/07/24 09:55 Orders (Tests/Meds): ED MEDICATIONS Discontinued Medications Generic Name Dose Route Start Last Admin Trade Name Freq PRN Reason Stop Dose Admin Magnesium Oxide 400 mg 11/07/24 10:28 11/07/24 10:42 Magnesium Oxide 400mg Tablet PO 11/07/24 10:29 400 mg ONCE ONE Administration Meclizine HCl 50 mg 11/07/24 10:04 11/07/24 10:24 Meclizine 25mg Tablet PO 11/07/24 10:05 50 mg ONCE ONE Administration ORDERS Category Date Time Status Complete Blood Count Auto Diff Stat Lab 11/07/24 09:55 Completed Comprehensive Metabolic Panel Stat Lab 11/07/24 09:55 Completed Magnesium Stat Lab 11/07/24 09:55 Completed POC Glucose,Bedside Routine Lab 11/07/24 09:49 Completed T4 (Thyroxine) Stat Lab 11/07/24 09:55 Completed Thyroid Stimulating Hormone Stat Lab 11/07/24 09:55 Completed Troponin I Q3H Lab 11/07/24 12:45 Ordered Troponin I Q3H Lab 11/07/24 15:45 Ordered Troponin I Stat Lab 11/07/24 09:55 Completed Medical Decision Narrative: 49-year-old male presents the emergency department with lightheadedness for 1 month, differential diagnose include but not limited to, peripheral vertigo, cardiac arrhythmia, electrolyte disturbance, orthostatic hypotension, postural syncope, presyncope, cardiogenic syncope, vasovagal syncope, situational syncope among others. I discussed this patient's case with the attending physician Will obtain laboratory studies, magnesium level, T4, TSH, troponin, EKG, orthostatic blood pressures, will give 50 mg p.o. meclizine for dizziness/lightheadedness. CBC notable for mild leukocytosis 11.2, otherwise unremarkable CMP is notable for mild BUN elevation 31, creatinine elevation at 1.4, mildly elevated outside the patient's baseline kidney function, mild hypomagnesia 1.4, give magnesium oxide 400 mg p.o. for this. Troponin within normal limits at less than 0.01 T4 within normal limits TSH within normal limits. Reexamination of the patient at approximately 11:15 PM, patient states his symptomatology has somewhat improved, patient also describes his symptoms as positional, patient tells me when I lay down at night , symptoms improved, thus most likely BPV or peripheral vertigo in the setting of the patient's clinical history and symptomatology as well is getting better with meclizine. Will prescribe 50 mg p.o. meclizine as needed for patient symptomatology, patient has slated follow-up with PCP and ear nose throat provider, I advised him to keep these appointments. Patient orthostatics are negative, patient was given strict ED return precautions. Patient voiced understanding and agreement with current treatment plan/discharge plan. Critical Care Critical Care Time Critical Care Time: No
[2024-11-07 10:02] LABS: POC Glucose,Bedside 124 gm/dL (70-110)
[2024-11-07 10:08] LABS: Hematocrit 46.8 % (42.0-52.0); Hemoglobin 15.2 g/dL (14.1-18.0); Immature Granulocytes % 0.2 %; Mean Corpuscular HGB Conc 32.5 g/dL (31.8-35.4); Mean Corpuscular Hemoglobin 27.0 pg (27.0-31.2); Mean Corpuscular Volume 83.3 fl (80-94); Nucleated Red Blood Cells % 0 %; Platelet Count 244 K/mm3 (142-424); Red Blood Count 5.62 M/mm3 (4.60-6.20); Red Cell Distribution Width-SD 42.8 fL; White Blood Count 11.2 K/mm3 (4.8-10.8)
[2024-11-07 10:14] LABS: Albumin Level 4.9 g/dl (3.5-5.0); Chloride 104 mmol/L (98-107); Potassium 4.5 mmoL/L (3.5-5.1); Sodium 138 mmol/L (136-145)
[2024-11-07 10:16] LABS: Alanine Aminotransferase 16 U/L (12-78); Blood Urea Nitrogen 31 mg/dl (9-20); Creatinine Clearance Estimated 101 mL/min (50-200); Creatinine,Serum 1.40 mg/dl (0.66-1.25); Estimated Glomerular Filt Rate 54 ml/min (>60); GFR (African American) 65 ML/MIN (>60)
[2024-11-07 10:17] LABS: Albumin/Globulin Ratio 1.5 (1.1-1.8); Alkaline Phosphatase 73 U/L (38-126); Anion Gap 12.5 mEq/L (5-15); Aspartate Amino Transferase 26 U/L (17-59); Bilirubin,Total 0.4 mg/dl (0.2-1.3); Calcium 10.2 mg/dl (8.4-10.2); Carbon Dioxide 26 mmol/L (22.0-30.0); Globulin 3.3 g/dL (1.3-3.2); Glucose 116 mg/dl (74-100); Magnesium 1.4 mg/dl (1.6-2.3); Total Protein,Serum 8.2 g/dl (6.3-8.2)
[2024-11-07] MEDS: MECLIZINE 25MG TABLET 50 MG PO (10:24)
[2024-11-07 10:27] VITALS: BP 114/77; BP 132/83; BP 136/88; PULSE 76; PULSE 77; PULSE 80
[2024-11-07 10:31] LABS: Troponin I < 0.01 ng/ml (0.00-0.034)
[2024-11-07 10:35] LABS: T4 (Thyroxine) 10.5 ug/dl (5.53-11.0)
[2024-11-07] MEDS: MAGNESIUM OXIDE 400MG TABLET 400 MG PO (10:42)
[2024-11-07 10:48] LABS: Thyroid Stimulating Hormone 1.39 uIU/mL (0.465-4.68)
[2024-11-07 11:36] VITALS: BP 115/75; PULSE 78; RESP 20; TEMP 36.7; O2SAT 99
== END 2024-11-07 11:38 | disposition home or self-care (01) ==
PROVIDERS: Emergency Provider Student in an Organized Health Care Education/Training Program; PCP Nurse Practitioner
DX: R42 Dizziness and giddiness (principal); I10 Essential (primary) hypertension; E11.9 Type 2 diabetes mellitus without complications
CPT/HCPCS: 80053; 82962; 83735; 84436; 84443; 84484; 85025; 93005; 99284